=== PATIENT | female | born 1965 | race Caucasian/White ===

== ENCOUNTER → 2017-11-20 09:48 | Outpatient (CLI) | payer BC, SELFPAY ==
--- NOTE | 2017-11-20 10:00 | MM_ITS ---
MM Dig screening mamm BI w/CAD CAD Screening INDICATION: Screening for breast cancer ORDERING PHYSICIAN: Carli Maldonado PATIENT AGE: 51 years COMPARISON: 5 06/24 and 09/29/2014 TECHNIQUE: Standard CC and MLO images were obtained. R2 CAD reviewed. FINDINGS: Dense fibroglandular tissue which decreases the sensitivity of mammography. Asymmetric density is present in the medial, superior, and central aspect of the right breast for which spot compression views and ultrasound are recommended. Calcifications are present in the superior left breast. Magnification views recommended. There is a 14 mm opacity noted in the upper aspect of the left breast. . Asymmetric density also noted in the lateral and central aspect of the left breast. Spot compression view views and ultrasound recommended IMPRESSION: Bilateral asymmetric nodular densities along with calcifications in the upper aspect of the left breast. Problem-solving views and ultrasound suggested BI-RADS Category: 0 Need Additional Imaging Evaluation RECOMMENDED FOLLOW-UP: IMM - IMMEDIATE FOLLOW-UP RECOMMENDED Recommend bilateral spot compression views and bilateral breast ultrasound (A letter has been sent to the patient regarding results of the study.)
== END ==
PROVIDERS: PCP Family Medicine; Visit Provider Registered Nurse
DX: Z12.31 Encounter for screening mammogram for malignant neoplasm of breast (principal)
CPT/HCPCS: 77067

== ENCOUNTER → 2017-12-07 14:57 | Outpatient (CLI) | payer BC, SELFPAY ==
--- NOTE | 2017-12-07 15:04 | MM_ITS ---
MM Dig mamm BI DX w/CAD, US breast LT complete US breast RT complete INDICATION: Follow-up abnormal mammogram ORDERING PHYSICIAN: Carli Maldonado PATIENT AGE: 51 years COMPARISON: 11/20/2017, 11/17/2016 TECHNIQUE: Bilateral problem-solving views performed along with bilateral breast ultrasound FINDINGS: There is dense fibroglandular tissue decreasing the sensitivity of mammography. Right breast: Asymmetric density in the medial and upper aspect of the right breast does appear to compress out. There is a approximately 1 cm opacity superior aspect of the right breast posteriorly with some faint calcification which do appear to mica layer as milk of calcium on the MLO view. There is a complex cyst in this region on ultrasound. Right breast ultrasound: 8 x 7 mm complex cyst at 12:00. 3 mm hypoechoic lesion probably a cyst at 6:00 and 10:00 with a 6 mm cyst at 10:00 also. Small nodes in the axilla. Left breast: Asymmetric density in the outer aspect of the left breast appear to compress out likely related to fibroglandular tissue. Asymmetric density in the medial and central aspect of the left breast also appear to compress out. Faint calcifications are present in the outer aspect of the left breast probably benign. Left breast ultrasound: 9 x 7 mm septated cyst at 1:00. 7 x 7 mm cyst at 2:00. 6 x 4 mm cyst at 3:00. There is some ductal dilatation. Complex cyst at 9:00 at 6 mm. 5 mm cyst at 11:00. No suspicious solid lesions evident. IMPRESSION: Probably benign findings. No convincing evidence of malignancy Asymmetric density superior right breast containing some calcification probably present previously better seen on today's images due to technique. Probably benign calcifications left breast. Complex cyst right breast BI-RADS Category: 3 Benign Finding Short Term Follow-up RECOMMENDED FOLLOW-UP: 6M - 6 MONTH FOLLOW-UP Suggest bilateral 6 month mammographic and sonographic follow-up (A letter has been sent to the patient regarding results of the study.)
== END ==
PROVIDERS: PCP Family Medicine; Visit Provider Registered Nurse
DX: R92.8 Other abnormal and inconclusive findings on diagnostic imaging of breast (principal)
CPT/HCPCS: 77066

== ENCOUNTER → 2017-12-12 13:49 | Outpatient (CLI) | payer BC, SELFPAY ==
--- NOTE | 2017-12-12 13:54 | US_ITS ---
MM Dig mamm BI DX w/CAD, US breast LT complete US breast RT complete INDICATION: Follow-up abnormal mammogram ORDERING PHYSICIAN: Carli Maldonado PATIENT AGE: 51 years COMPARISON: 11/20/2017, 11/17/2016 TECHNIQUE: Bilateral problem-solving views performed along with bilateral breast ultrasound FINDINGS: There is dense fibroglandular tissue decreasing the sensitivity of mammography. Right breast: Asymmetric density in the medial and upper aspect of the right breast does appear to compress out. There is a approximately 1 cm opacity superior aspect of the right breast posteriorly with some faint calcification which do appear to hand mica plate layer as milk of calcium on the MLO view. There is a complex cyst in this region on ultrasound. Right breast ultrasound: 8 x 7 mm complex cyst at 12:00. 3 mm hypoechoic lesion probably a cyst at 6:00 and 10:00 with a 6 mm cyst at 10:00 also. Small nodes in the axilla. Left breast: Asymmetric density in the outer aspect of the left breast appear to compress out likely related to fibroglandular tissue. Asymmetric density in the medial and central aspect of the left breast also appear to compress out. Faint calcifications are present in the outer aspect of the left breast probably benign. Left breast ultrasound: 9 x 7 mm septated cyst at 1:00. 7 x 7 mm cyst at 2:00. 6 x 4 mm cyst at 3:00. There is some ductal dilatation. Complex cyst at 9:00 at 6 mm. 5 mm cyst at 11:00. No suspicious solid lesions evident. IMPRESSION: Probably benign findings. No convincing evidence of malignancy Asymmetric density superior right breast containing some calcification probably present previously better seen on today's images due to technique. Probably benign calcifications left breast. Complex cyst right breast BI-RADS Category: 3 Benign Finding Short Term Follow-up RECOMMENDED FOLLOW-UP: 6M - 6 MONTH FOLLOW-UP Suggest bilateral 6 month mammographic and sonographic follow-up (A letter has been sent to the patient regarding results of the study.)
== END ==
PROVIDERS: PCP Family Medicine; Visit Provider Registered Nurse
DX: N64.89 Other specified disorders of breast (principal); R92.8 Other abnormal and inconclusive findings on diagnostic imaging of breast
CPT/HCPCS: 76641

== ENCOUNTER → 2018-12-12 14:08 | Outpatient (CLI) | payer BC, SELFPAY ==
--- NOTE | 2018-12-12 14:21 | MM_ITS ---
MM Dig mamm BI DX w/CAD, US breast RT complete, US breast LT complete INDICATION: Follow-up category 3 mammogram ORDERING PHYSICIAN: Carli Maldonado PATIENT AGE: 52 years COMPARISON: 11/20/2017, 12/07/2017, 11/17/2016 TECHNIQUE: Standard images performed along spot compression views and bilateral breast ultrasound with axilla FINDINGS: There is heterogeneously dense fibroglandular tissue which decreases the sensitivity of mammography. A small group of calcifications noted in the medial aspect of the right breast . Asymmetric density is noted in the central one third of the right breast on the MLO view superiorly and is felt to represent asymmetric fibroglandular tissue. There are some faint calcifications in this area as well probably benign. Scattered asymmetric densities noted in the left breast as before. Faint grouping of calcifications noted in the upper outer aspect of the left breast probably benign.. These have been present dating back to 09/29/2014 with may be slightly more prominent. 6 Month follow-up with mag views suggested. Small Asymmetric density in the medial aspect of the left breast not significant changed. No malignant appearing microcalcifications or masses evident. Right breast ultrasound: There is heterogeneously echogenic dense fibroglandular tissue noted with scattered areas of complex cyst. 12:00 there is a 6 mm complex cyst measuring 6 mm not significant change. At 6:00 there is a 4 mm cyst with an internal septation. Slightly larger but has a benign appearance. 5 mm cyst at 10:00. Not significant change. Small nodes in the right axilla. Left breast ultrasound: There is a 10 x 7 mm cyst at 2:00 not significant change. There are some mildly dilated ducts at 3:00 region. 7 mm cyst at 5:00. 6 mm complex cyst at 9:00 unchanged. 5 mm cyst at 11:00 unchanged. Small nodes in the axilla. IMPRESSION: No convincing evidence of malignancy. Overall no significant change in the heterogeneously dense fibroglandular tissue with scattered areas of asymmetry felt to be related to asymmetric breast tissue. There are bilateral areas of calcification as described above. These appear slightly more prominent but could be related to the technique and progression of underlying fibroglandular tissue. Suggest 6 month follow-up with mag views. BI-RADS Category: 3 Probably Benign Finding Short Term Follow-up RECOMMENDED FOLLOW-UP: 6M - 6 MONTH FOLLOW-UP (A letter has been sent to the patient regarding results of the study.)
--- NOTE | 2018-12-12 14:33 | US_ITS ---
US transvaginal HISTORY: ITS.REASON: ABN BLEEDING ORDERING PHYSICIAN: Carli Maldonado PATIENT AGE: 52 years Comparison: None FINDINGS: The uterus is 6.5 x 2.8 x 3.4 cm with a combined endometrial thickness of 5 mm. There are small nabothian cysts noted. The left ovary is 2 x 2 cm. The right ovary is 3.7 x 3.9 cm and contains a couple of cysts the largest at 2.4 cm there is bilateral ovarian blood flow. No cul-de-sac fluid evident. IMPRESSION: 1. Small right ovarian cysts 2. Otherwise negative pelvic ultrasound
== END ==
PROVIDERS: PCP Physician Assistant; Visit Provider Registered Nurse
DX: N93.9 Abnormal uterine and vaginal bleeding, unspecified (principal); R92.8 Other abnormal and inconclusive findings on diagnostic imaging of breast
CPT/HCPCS: 76641; 76830; 77066

== ENCOUNTER → 2019-12-05 16:12 | Outpatient (CLI) | payer BC, SELFPAY | PROVIDERS: Visit Provider Family Medicine | DX: R31.29 Other microscopic hematuria (principal) | CPT/HCPCS: 87086 ==

== ENCOUNTER → 2019-12-10 09:58 | Outpatient (CLI) | payer BC, SELFPAY ==
--- NOTE | 2019-12-10 10:07 | CT_ITS ---
PROCEDURE: CT ABDOMEN PELVIS WO CON CLINICAL INDICATION: PELVIC PAIN,RT FLANK PAIN,HEMATURIA, right flank pain, right lower quadrant pain and hematuria COMPARISON: No exams were available for comparison TECHNIQUE: Axial images obtained with sagittal and coronal reformats. All CT scans at the facility use one or more dose reduction, viz: automated exposure control, ma/kV adjustment per patient size (including targeted exams where dose is matched to indication, i.e. head), or iterative reconstruction technique. FINDINGS: LOWER THORAX: No acute finding ABDOMEN & PELVIS: The liver, spleen, adrenal glands, and pancreas have an unremarkable appearance. There has been a prior cholecystectomy. There is mild right hydronephrosis and hydroureter secondary to a 5 mm stone at the right ureterovesical junction. There is some mild edema of the right kidney which could be due to underlying infection. Nonobstructing stone is present in the mid polar region of the right kidney at 2 mm. On the left, there is a large rounded stone in the lower pole at 2.5 cm. This could even represent milk of calcium within a calyceal diverticulum. No hydronephrosis on the left. No evidence of appendicitis, intestinal obstruction, free air, or diverticulitis. There is minimal amount of fluid in the pelvis. No pelvic mass evident. No acute bony anomalies. IMPRESSION: 1. 5 mm right ureterovesical junction stone with mild right hydronephrosis and hydroureter. There is some edema of the right kidney which may be due to underlying urinary tract infection with a nonobstructing right renal calculus in the midpole. 2. 2.5 cm rounded area of calcification along the lower pole of the left kidney which may represent a large stone or milk of calcium within a calyceal diverticulum Dictated by: Johnson Blakely MD 12/10/2019 11:31 Electronically signed by Johnson Blakely MD in [place] 12/10/2019 11:31
== END ==
PROVIDERS: PCP Family Medicine; Visit Provider Family Medicine
DX: R10.2 Pelvic and perineal pain (principal); R10.9 Unspecified abdominal pain; R31.29 Other microscopic hematuria
CPT/HCPCS: 74176

== ENCOUNTER → 2019-12-15 14:30 | Outpatient (CLI) | payer BC, SELFPAY ==
--- NOTE | 2019-12-15 14:33 | XR_ITS ---
PROCEDURE: XR KUB CLINICAL INDICATION: kidney stone Right flank pain COMPARISON: CT ABDOMEN PELVIS WO CON from 12/10/2019 FINDINGS: There is a 5 mm stone at the right ureterovesical junction. A 2.9 cm stone overlies the lower pole of the left kidney. In addition, there is a 3 mm stone in the mid polar region of the right kidney IMPRESSION: Bilateral nephrolithiasis with right ureterovesical junction stone Dictated by: Johnson Blakely MD 12/15/2019 15:25 Electronically signed by Johnson Blakely MD in [place] 12/15/2019 15:25
== END ==
PROVIDERS: PCP Family Medicine; Visit Provider Urology
DX: N20.0 Calculus of kidney (principal)
CPT/HCPCS: 74018

== ENCOUNTER → 2019-12-22 13:49 | Outpatient (CLI) | payer BC, SELFPAY ==
--- NOTE | 2019-12-22 13:54 | XR_ITS ---
PROCEDURE: XR KUB CLINICAL INDICATION: kidney stone Right flank COMPARISON: CT ABDOMEN PELVIS WO CON from 12/10/2019 FINDINGS: Calcific density measuring 5 mm is present in the right lower pelvic region consistent with a stone at the ureterovesical junction similar to 12/10/2019. A large left renal stone at 2.9 cm noted along the lower pole of the left kidney. IMPRESSION: No change right ureterovesical junction stone and large left renal stone Dictated by: Johnson Blakely MD 12/22/2019 14:35 Electronically signed by Johnson Blakely MD in [place] 12/22/2019 14:35
== END ==
PROVIDERS: PCP Family Medicine; Visit Provider Urology
DX: N20.0 Calculus of kidney (principal)
CPT/HCPCS: 74018

== ENCOUNTER → 2020-01-19 13:01 | Outpatient (CLI) | payer BC, SELFPAY ==
--- NOTE | 2020-01-19 13:05 | XR_ITS ---
PROCEDURE: XR KUB CLINICAL INDICATION: R URETHERAL STONE AND L RENAL STONE COMPARISON: CT ABDOMEN PELVIS WO CON from 12/10/2019 XR KUB from 12/22/2019 FINDINGS: No change in the large stone overlying the lower pole of the left kidney at 3 cm. There are multiple pelvic calcifications. The small linear calcific density in the right pelvic region which may represent a distal ureteral stone is unchanged. This measures approximately 9 mm in length and up to 2 mm in thickness. In addition there is a 5 mm stone at the ureterovesical junction. Consider CT for confirmation of 2 different ureteral stones. IMPRESSION: Left nephrolithiasis Right ureteral lithiasis with possible 2 stones in the distal ureter. Consider CT for confirmation Dictated by: Johnson Blakely MD 01/19/2020 14:52 Electronically signed by Johnson Blakely MD in [place] 01/19/2020 14:52
== END ==
PROVIDERS: PCP Family Medicine; Visit Provider Urology
DX: N20.0 Calculus of kidney (principal)
CPT/HCPCS: 74018

== ENCOUNTER 2020-05-28 09:49 | Emergency (ER) | payer BC, SELFPAY ==
[2020-05-28 10:40] VITALS: BP 133/81; PULSE 101; RESP 18; TEMP 36.9; O2SAT 98; BMI 27.7
--- NOTE | 2020-05-28 10:51 | HMH.EDUTC ---
[place] Disposition Clinical Impression: Exposure to COVID-19 virus Disposition: Home, Self-Care Condition on Discharge: Good Instructions: Preventing the Spread of Coronavirus Discharge Instructions Additional Instructions: Drink plenty of fluids. Take tylenol for pain or fever. Return if you begin to have difficulty breathing. Follow up with your regular doctor. GO TO THE ER FOR ANY WORSENING SYMPTOMS Referrals: Med Canales MD [Primary Care Provider] - Time of Disposition: 10:54 Medical Decision Making - Medical Records Medical records reviewed: No: I reviewed the patient's medical records. - Giancarlo Inquiry Pt receiving controlled substance: No Vital Signs: 05/28/20 10:40 05/28/20 11:07 Temperature 98.5 F 98.5 F Temperature Source Oral Pulse Rate 101 H Pulse Rate [Right Brachial] 101 H Respiratory Rate 18 18 Blood Pressure 133/81 Blood Pressure [Right Arm] 133/81 Blood Pressure Mean [Right Arm] 98 Blood Pressure Source [Right Arm] Automatic Cuff Blood Pressure Position [Right Arm] Sitting 02 Sat by Pulse Oximetry 98 Oxygen Delivery Method Room Air Orders (Tests/Meds): ORDERS Category Date Time Status Covid-19 Nasal PCR ([facility]) Routine Lab 05/28/20 10:47 Ordered [place] HPI - General Stated complaint: Covid exposure Time Seen by Provider: 05/28/20 10:51 - History of Present Illness Provider Complaint: She got exposed to covid at her work 3 days ago. She denies any symptoms. - Related Data Previous Rx's Medication Instructions Recorded albuterol sulfate 90 mcg/actuation 1 inh INHALATION Q4-6H PRN #1 each 06/23/19 breath activated powder inhaler azithromycin 250 mg tablet See Rx Instructions PO .COMPLEX #6 06/23/19 tab mexbtjqjzfxxmcr-bzurkwzhujxwwyl-RE 10 ml PO Q4-6H PRN #220 ml 06/23/19 2 mg-30 mg-10 mg/5 mL oral syrup Allergies Allergy/AdvReac Type Severity Reaction Status Date / Time No Known Allergies Allergy Verified 01/19/20 14:06 [facility] History - Hepatitis A Screen Attestation statement:: This patient has been screened for Hepatitis A risk factors. I have reviewed the patient's past medical history: Yes Other Surgeries: Yes: No Previous Surgery, Cholecystectomy Amputation: No Fractures: No - Social History Smoking Status: Current every day smoker Tobacco Type: cigarettes Alcohol Intake: never Substance Use Type: denies use Occupational Status: employed Family Hx:: Asthma, Hyperlipidemia, Diabetes, Hypertension, Coronary Artery Disease, Stroke ROS Obtained: Yes All systems reviewed & no additional complaints - Constitutional Constitutional: Reports system reviewed and no additional complaints, except as docu - Eyes Eyes: Reports system reviewed and no additional complaints, except as docu - ENT Ears, Nose, Mouth, and Throat: Reports system reviewed and no additional complaints, except as docu - Cardiovascular Cardiovascular: Reports system reviewed and no additional complaints, except as docu - Respiratory Respiratory: Yes system reviewed and no additional complaints, except as docu - Gastrointestinal Gastrointestingal: Reports: system reviewed and no additional complaints, except as docu Physical Exam - General General appearance: alert, in no apparent distress - Head Head exam: atraumatic, normocephalic, normal inspection - Eye Eye exam: Present: normal appearance, PERRL, EOMI - ENT ENT exam: Present: normal exam, normal oropharynx, mucous membranes moist, TM's normal bilaterally, normal external ear exam - Neck Neck exam: Present: normal inspection, full ROM, trachea midline. Absent: meningismus, lymphadenopathy - Chest Chest inspection: Present: normal inspection, symmetric chest wall rise. Absent: tenderness - Respiratory Respiratory exam: Present: normal lung sounds bilaterally. Absent: respiratory distress - Cardiovascular Cardiovascular exam: Present: regular rate, normal rhythm
[2020-05-28 11:07] VITALS: BP 133/81; PULSE 101; RESP 18; TEMP 36.9; O2SAT 98
== END 2020-05-28 11:09 | disposition home or self-care (01) ==
PROVIDERS: Emergency Provider Nurse Practitioner Family; PCP Family Medicine
DX: Z20.828 Contact with and (suspected) exposure to other viral communicable diseases (principal); F17.210 Nicotine dependence, cigarettes, uncomplicated
CPT/HCPCS: 99201; U0003

== ENCOUNTER 2022-02-23 16:31 | Emergency (ER) | payer OTHER, SELFPAY ==
[2022-02-23 16:56] VITALS: BP 156/87; PULSE 98; RESP 18; TEMP 37.4; O2SAT 99; BMI 27.1
--- NOTE | 2022-02-23 17:20 | HMH.EDUTC ---
[facility] [place] Clinical Impression: COVID-19 Disposition: Home, Self-Care Condition on Discharge: Good Instructions: DI for COVID-19 (Suspected or Confirmed ), Preventing the Spread of Coronavirus Discharge Instructions Additional Instructions: Drink plenty of fluids. Take tylenol or ibuprofen for pain or fever. Take the medications as directed. Follow up with your regular doctor. GO TO THE ER FOR ANY WORSENING SYMPTOMS Prescriptions: Ondansetron [Zofran 4mg ODT] 4 mg PO Q8HP PRN #20 tab PRN Reason: Nausea Transmission Status: Received by [facility] Nirmatrelvir/Ritonavir [Paxlovid 2X150 mg-100 mg (Eua)] 1 packet PO DIRECTED 5 Days #1 packet Transmission Status: Received by [facility] Referrals: Med Canales MD [Primary Care Provider] - Time of Disposition: 17:42 Medical Decision Making - Medical Records Medical records reviewed: No: I reviewed the patient's medical records. - Giancarlo Inquiry Pt receiving controlled substance: No Vital Signs: 02/23/22 16:56 02/23/22 17:49 Temperature 99.4 F 99.4 F Temperature Source Oral Pulse Rate 98 H Pulse Rate [Left] 98 H Respiratory Rate 18 18 Blood Pressure 156/87 H Blood Pressure [Right Arm] 156/87 H Blood Pressure Mean [Right Arm] 110 02 Sat by Pulse Oximetry 99 [facility] [place] - General Stated complaint: home covie+.CARRANZA,congestion Time Seen by Provider: 02/23/22 17:20 Mode of Arrival: Ambulatory Source of Information: Patient Limitations: No Limitations Description of Symptoms (Recalled from Triage Doc. by RN): patient comes in for covid test. patient had home test that was positive today. HEENT Symptoms (Recalled from RN notes): Yes Resp Symptoms (Recalled from RN notes): Yes Skin Symptoms (Recalled from RN notes): No MS Symptoms (Recalled from RN notes): No Functional Status (Recalled from RN notes): n/a - History of Present Illness Provider Complaint: She states that she started feeling bad 2 days ago. She has had low grade fever, chills, body aches and a nonproductive cough. - Related Data Previous Rx's Medication Instructions Recorded albuterol sulfate 90 mcg/actuation 1 inh INHALATION Q4-6H PRN #1 each 06/23/19 breath activated powder inhaler azithromycin 250 mg tablet See Rx Instructions PO .COMPLEX #6 06/23/19 tab aulzeqrjkjhacnr-hompvlmpaaamvzh-RZ 10 ml PO Q4-6H PRN #220 ml 06/23/19 2 mg-30 mg-10 mg/5 mL oral syrup Nirmatrelvir/Ritonavir [Paxlovid 1 packet PO DIRECTED 5 Days #1 02/23/22 2X150 mg-100 mg (Eua)] packet Ondansetron [Zofran 4mg ODT] 4 mg PO Q8HP PRN #20 tab 02/23/22 Allergies Allergy/AdvReac Type Severity Reaction Status Date / Time No Known Allergies Allergy Verified 02/23/22 16:58 - Worker's Comp Is this a Worker's Comp case?: No [facility] History - Hepatitis A Screen Attestation statement:: This patient has been screened for Hepatitis A risk factors. I have reviewed the patient's past medical history: Yes Other Surgeries: Yes: No Previous Surgery, Cholecystectomy Amputation: No Fractures: No - Social History Smoking Status: Current every day smoker Tobacco Type: cigarettes Alcohol Intake: never Substance Use Type: denies use Occupational Status: other Family Hx:: Asthma, Hyperlipidemia, Diabetes, Hypertension, Coronary Artery Disease, Stroke ROS Obtained: Yes All systems reviewed & no additional complaints - Constitutional Constitutional: Reports as per HPI - Eyes Eyes: Denies eye discharge - ENT Ears, Nose, Mouth, and Throat: Reports as per HPI - Cardiovascular Cardiovascular: Denies chest pain - Respiratory Respiratory: Denies chest congestion, Reports cough Physical Exam - General General appearance: alert, in no apparent distress - Head Head exam: atraumatic, normocephalic, normal inspection - Eye Eye exam: Present: normal appearance, PERRL, EOMI - ENT ENT exam: Present: normal exam, nor
[2022-02-23 17:49] VITALS: BP 156/87; PULSE 98; RESP 18; TEMP 37.4
== END 2022-02-23 17:52 | disposition home or self-care (01) ==
PROVIDERS: Emergency Provider Nurse Practitioner Family; PCP Family Medicine
DX: U07.1 COVID-19 (principal); R51.9 Headache, unspecified; M79.10 Myalgia, unspecified site; F17.210 Nicotine dependence, cigarettes, uncomplicated; Z79.51 Long term (current) use of inhaled steroids; Z82.49 Family history of ischemic heart disease and other diseases of the circulatory system; Z82.5 Family history of asthma and other chronic lower respiratory diseases; Z83.438 Family history of other disorder of lipoprotein metabolism and other lipidemia; Z83.3 Family history of diabetes mellitus
CPT/HCPCS: 99213; G0463

== ENCOUNTER 2023-03-06 13:55 | Emergency (ER) | payer BC, SELFPAY ==
[2023-03-06 14:00] VITALS: BP 148/94; PULSE 71; RESP 20; TEMP 36.5; O2SAT 98; BMI 30.5
[2023-03-06 14:28] VITALS: BP 148/94; PULSE 71; RESP 20; TEMP 36.5; O2SAT 98
--- NOTE | 2023-03-06 19:54 | EXP.UTC ---
Discharge Plan Disposition Patient Disposition: Home, Self-Care Condition: Good Prescriptions Prescriptions: No Action azithromycin 250 mg tablet See Rx Instructions PO .COMPLEX Qty: 6 0RF Rx Instructions: take 500 mg today (day 1), then 250 mg for 4 days (days 2-5) PO muxbxsfyvslehgi-cfasmglkh-KE [Bromfed DM] 2-30-10 mg/5 mL syrup 10 ml PO Q4-6H PRN (Reason: sinus symptoms) Qty: 220 0RF albuterol sulfate 90 mcg/actuation aerosol powdr breath activated 1 inh INHALATION Q4-6H PRN (Reason: shortness of breath or wheezing) Qty: 1 0RF ondansetron 4 MG tablet,disintegrating 4 mg PO Q8HP PRN (Reason: Nausea) Qty: 20 0RF nirmatrelvir-ritonavir 1 EACH tablet 1 packet PO DIRECTED 5 Days Qty: 1 0RF Referrals Follow up/Referrals: Provider,Referral, MD [Primary Care Provider] - See instructions Activity Restrictions/Add. Instructions Additional Instructions/Restrictions: Take medication as prescribed FOllow up with your Dentist as scheduled Clinical Impressions Clinical Impression: Abscess, dental Discharge ED Provider: Radha Araujo [facility] [place] HPI General Stated complaint: dental pain Time Seen by Provider: 03/06/23 14:00 History of Present Illness Provider Complaint: Patient state that she broke a couple teeth on her left lower bottom and has appointment with Dentist next week but woke up this morning with swelling in her left jaw area thinks she may have an abscess Related Data Previous Rx's Medication Instructions Recorded albuterol sulfate 90 mcg/actuation 1 inh inhalation Q4-6H PRN 06/23/19 breath activated powder inhaler shortness of breath or wheezing #1 ea azithromycin 250 mg tablet See Rx Instructions PO .COMPLEX #6 06/23/19 tabs hhgpzyxdolskorx-vhzkzdnfqjvizcw-YZ 10 ml PO Q4-6H PRN sinus symptoms 06/23/19 2 mg-30 mg-10 mg/5 mL oral syrup #220 mL (Bromfed DM) nirmatrelvir 300 mg (150 mg 1 packet PO DIRECTED 5 days #1 02/23/22 x2)-ritonavir 100 mg tablet,dose packet pack ondansetron 4 mg disintegrating 4 mg PO Q8HP PRN Nausea #20 tabs 02/23/22 tablet Allergies Allergy/AdvReac Type Severity Reaction Status Date / Time No Known Allergies Allergy Verified 02/23/22 16:58 [facility] Disclaimer: The information contained in this section may have been updated after the patient was seen, as this information can be updated by other users. Social History Smoking Status: Current every day smoker tobacco type: cigarettes alcohol intake: never substance use type: denies use current occupational status: other Travel in the last 8 weeks: None ROS Obtained: Yes All systems reviewed & no additional complaints except as documented and Yes Systems reviewed as appropriate & no additional complaints except as documented Constitutional Constitutional: Reports system reviewed and no additional complaints, except as documented and Reports as per HPI ENT Ears, Nose, Mouth, and Throat: Reports system reviewed and no additional complaints, except as documented, Reports as per HPI and Reports dental pain Cardiovascular Cardiovascular: Reports system reviewed and no additional complaints, except as documented and Reports as per HPI Respiratory Respiratory: Reports system reviewed and no additional complaints, except as documented and Reports as per HPI Gastrointestinal Gastrointestingal: Reports system reviewed and no additional complaints, except as documented and as per HPI Physical Exam General General appearance: alert and in no apparent distress Expanded ENT Exam Teeth exam: Present fractured tooth #, gingival swelling and other (swelling in left jaw area with mulitple broke bottom teeth) Respiratory Respiratory exam: Present normal lung sounds bilaterally; Absent respiratory distress or wheezes Cardiovascular Cardiovascular exam: Present regular rate, normal rhythm and normal heart sounds Neurological Exam Neurological exam: Present alert, oriented X3 and n
== END 2023-03-06 14:30 | disposition home or self-care (01) ==
PROVIDERS: Emergency Provider Nurse Practitioner
DX: K04.7 Periapical abscess without sinus (principal); R68.84 Jaw pain; F17.210 Nicotine dependence, cigarettes, uncomplicated
CPT/HCPCS: 99212; 99213; G0463

== ENCOUNTER 2025-02-15 16:42 | Inpatient (IN) | payer BC, SELFPAY ==
[2025-02-15] VITALS (17 sets, daily range): BP systolic 128–169; BP diastolic 64–115; PULSE 82–100; RESP 18–26; TEMP 36.4–36.9; O2SAT 84–99; BMI 26.4; BMI 27.1
--- OUTSIDE RECORDS SUMMARY | 2025-02-15 16:54 | XMS_ITS | Clinical Summary ---
Author Organization [facility] Address 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 Name Role Phone Unavailable Primary Care Provider Unavailabl e Social History Tobacco Use Types Packs/Day Years Used Date Smoking Tobacco: Never Assessed Comments No Sex and Gender Information Value Date Recorded Sex Assigned at Not on file Legal Sex Female 12:35 PM EST Gender Identity Not on file Sexual Orientation Not on file Obstetrics History Para Term AB IAB SAB Ectopic Multiple Livin g Live Births 0 Last Filed Vital Signs Vital Sign Reading Time Taken Comments Blood Pressure - - Pulse - - Temperature - - Respiratory Rate - - Oxygen Saturation - - Inhaled Oxygen Concentration - - Weight 65.8 kg (145 lb) 08/21/2024 1:31 PM EST Height 152.4 cm (5') 08/21/2024 1:31 PM EST Body Mass Index 28.32 08/21/2024 1:31 PM EST Plan of Treatment Health Maintenance Due Date Last Done Comments Annual Wellness Exam 12/19/1970 DTaP/TDaP/Td (1 - Tdap) 12/19/1986 Hepatitis B Vaccine (1 of 3 - 19+ 3-dose series) 12/19/1986 HPV/Pap Cotest 12/19/1997 Cologuard 12/19/2012 Colon Cancer Screening 12/19/2012 Colonoscopy 12/19/2012 FIT 12/19/2012 Sigmoidoscopy 12/19/2012 Virtual Colonography 12/19/2012 Pneumococcal Vaccine 50+ (1 of 1 - PCV) 12/19/2017 Cervical Cancer Screening 11/25/2021 Pap Smear 11/25/2021 11/25/2018, 10/2017, 11/08/2016 COVID-19 Vaccine ( season) 2024 07/26/2022, 11/08/2021, 05/26/2021, Additional history exists Influenza Vaccine (#1) 2025 2, 04/15/2020, 05/21/2019, Additional history exists Breast Cancer Screening 08/21/2026 08/21/19, 08/11/2024, 08/17/2023 Zoster Completed 01/14/2024, 11/13/2023 Meningococcal B Vaccine Aged Out No l onger eligible based on patient's age to complete this topic Procedures Procedure Name Priority Date/Time Associated Diagnosis Comments MM MAMMO DIGITAL ROBERTO DIAGN LEFT Routine 08/21/2024 1:54 PM EST Abnormal mammogram from Last 3 Months or Most Recently Relevant to Health Maintenance Results * MM MAMMO DIGITAL ROBERTO DIAGN LEFT (08/21/2024 1:54 PM EST) Anatomical Region Laterality Modality Breast Left Mammography 08/21/2024 1:54 PM EST Impressions 08/21/2024 4:23 PM EST Negative ([id number]) ASSESSMENT TEXT: No mammographic evidence of malignancy. RECOMMENDATION: Routine Screening Mammogram in 1 Year Bilateral COMMENTS: Return for evaluation with any concerning changes. The findings and recommendations were discussed with the patient following the examination. Narrative 08/21/2024 4:23 PM EST EXAM: MM MAMMO DIGITAL ROBERTO DIAGN LEFT EXAM DATE: 08/21/2024 INDICATION: R92.8-Other abnormal and inconclusive findings on diagnostic imaging of [id number] COMPARISON STUDIES: No Qualifying Comparisons Found TISSUE DENSITY: The breasts are heterogeneously dense, which may obscure small masses. FINDINGS: The questioned area of distortion effaces with supplemental views compatible with summation artifact of normal breast tissue. No suspicious mammographic findings. Procedure Note Indra Zamudio MD - 08/21/2024 EXAM: MM MAMMO DIGITAL ROBERTO DIAGN LEFT EXAM DATE: 08/21/2024 INDICATION: R92.8-Other abnormal and inconclusive findings on diagnosticimaging of [id number] COMPARISON STUDIES: No Qualifying Comparisons Found TISSUE DENSITY: The breasts are heterogeneously dense, which may obscuresmall masses. FINDINGS: The questioned area of distortion effaces with supplementalviews compatible with summation artifact of normal breast tissue. Nosuspicious mammographic findings. IMPRESSION: Negative ([id number]) ASSESSMENT TEXT: No mammographic evidence of malignancy. RECOMMENDATION: Routine Screening Mammogram in 1 Year Bilateral COMMENTS: Return for evaluation with any concerning changes. The findingsand recommendations were discussed with the patient following theexamination. Toyin Holguin APRN IM MAMMOGRAPHY ORDERABLES Fin al Result from Last 3 Months or Most Recently Relevant to Health Maintenance Insurance O
--- NOTE | 2025-02-15 17:03 | ECG_ITS ---
APPROVED REPORT Exam: Resting ECG HR:86 bpm ECG Measurements Heart Rate 86 AXES WV 131 P 70 QRSd 74 QRS 46 QT 364 T 73 QTc 407 Conclusion SINUS RHYTHM LOW QRS VOLTAGE [QRS DEFLECTION < 0.5/1.0 mV IN LIMB/CHEST LEADS] MINIMAL ST DEPRESSION [0.025+ mV ST DEPRESSION] ABNORMAL ECG UNCONFIRMED REPORT Electronically signed by : TRICIA CAMP, 02/16/2025 23:46:07
--- NOTE | 2025-02-15 17:04 | XR_ITS ---
PROCEDURE INFORMATION: Exam: XR Chest Exam date and time: 02/15/2025 5:20 PM Age: 59 years old Clinical indication: Shortness of breath TECHNIQUE: Imaging protocol: Radiologic exam of the chest. Views: 1 view. COMPARISON: DX XR KUB 01/19/2020 1:26 PM FINDINGS: Lungs: Unremarkable. No consolidation. Pleural spaces: Unremarkable. No pleural effusion. No pneumothorax. Heart/Mediastinum: Unremarkable. No cardiomegaly. Bones/joints: Unremarkable. IMPRESSION: No acute findings.
[2025-02-15 17:11] LABS: Hematocrit 47.6 % (37.0-47.0); Hemoglobin 16.1 g/dL (12.2-16.2); Immature Granulocytes % 0.2 %; Mean Corpuscular HGB Conc 33.8 g/dL (31.8-35.4); Mean Corpuscular Hemoglobin 30.5 pg (27.0-31.2); Mean Corpuscular Volume 90.2 fl (81-99); Nucleated Red Blood Cells % 0 %; Platelet Count 381 K/mm3 (142-424); Red Blood Count 5.28 M/mm3 (4.20-5.40); Red Cell Distribution Width-SD 40.9 fL; White Blood Count 14.2 K/mm3 (4.8-10.8)
[2025-02-15] MEDS: IPRATROPIUM/ALBUTEROL 3 ML NEB 9 ML IH (17:13)
[2025-02-15 17:16] LABS: Lactate Venous 1.3 mmol/L (0.4-2.0); VBG HCO3 24.2 mmol/L (23-30); VBG PCO2 47.8 mmol/L (35-51); VBG PH 7.32 mmol/L (7.31-7.41); VBG PO2 31.0 mmol/L (28-40)
[2025-02-15 17:18] LABS: Alanine Aminotransferase 43 U/L (12-78); Albumin Level 5.0 g/dl (3.5-5.0); Albumin/Globulin Ratio 1.7 (1.1-1.8); Alkaline Phosphatase 129 U/L (38-126); Anion Gap 10.3 mEq/L (5-15); Aspartate Amino Transferase 49 U/L (14-36); Bilirubin,Total 0.4 mg/dl (0.2-1.3); Blood Urea Nitrogen 10 mg/dl (7-17); Calcium 9.5 mg/dl (8.4-10.2); Carbon Dioxide 25 mmol/L (22.0-30.0); Chloride 106 mmol/L (98-107); Creatinine Clearance Estimated 75 mL/min (50-200); Creatinine,Serum 0.80 mg/dl (0.52-1.04); Estimated Glomerular Filt Rate 74 ml/min (>60); GFR (African American) 89 ML/MIN (>60); Globulin 3.0 g/dL (1.3-3.2); Glucose 122 mg/dl (74-100); Potassium 4.3 mmoL/L (3.5-5.1); Sodium 137 mmol/L (136-145); Total Protein,Serum 8.0 g/dl (6.3-8.2)
[2025-02-15] MEDS: ONDANSETRON 4MG/2ML VIAL 4 MG IV (17:20)
[2025-02-15] MEDS: METHYLPREDNISOLONE SOD SUCC 125MG VIAL 125 MG IV (17:20)
[2025-02-15] MEDS: 0.9 % SODIUM CHLORIDE 1000ML 1,000 ML 999 ML IV (17:21)
[2025-02-15] MEDS: MAGNESIUM SULFATE IN WATER 2 GM/50 ML PIGGYBACK IV (17:21)
[2025-02-15 17:23] LABS: D-Dimer 0.77 ug/mL (0.0-0.5)
--- NOTE | 2025-02-15 17:30 | CT_ITS ---
PROCEDURE INFORMATION: Exam: CTA Chest With Contrast Exam date and time: 02/15/2025 6:17 PM Age: 59 years old Clinical indication: Abnormal findings; Abnormal diagnostic tests; Elevated d-dimer; Other: Hypoxia; Additional info: Hypoxia, elevated d-dimer TECHNIQUE: Imaging protocol: Computed tomographic angiography of the chest with contrast. Exam focused on the arteries. 3D rendering (Not supervised by radiologist): MIP and/or 3D reconstructed images were created by the technologist. Radiation optimization: All CT scans at this facility use at least one of these dose optimization techniques: automated exposure control; mA and/or kV adjustment per patient size (includes targeted exams where dose is matched to clinical indication); or iterative reconstruction. Contrast material: ISOUVE 370; Contrast volume: 80 ml; Contrast route: INTRAVENOUS (IV); COMPARISON: CR XR CHEST PORTABLE 02/15/2025 5:20 PM FINDINGS: Pulmonary arteries: Normal. No pulmonary emboli. Aorta: Unremarkable. No aortic aneurysm. No aortic dissection. Lungs: Mild patchy multifocal ground-glass opacities are noted bilaterally involving the left upper lobe and both lower lobes most pronounced in the inferior aspect of the left upper lobe. Lungs are otherwise clear. Pleural spaces: Unremarkable. No pneumothorax. No pleural effusion. Heart: Unremarkable. No cardiomegaly. No pericardial effusion. Lymph nodes: Unremarkable. No enlarged lymph nodes. Bones/joints: Unremarkable. No acute fracture. Soft tissues: Unremarkable. IMPRESSION: 1. No evident PE. 2. Mild bilateral ground-glass opacity suggesting atypical infectious or inflammatory pneumonitis. Advise follow-up to ensure resolution.
[2025-02-15 17:38] LABS: Troponin I < 0.01 ng/ml (0.00-0.034)
--- NOTE | 2025-02-15 18:01 | HMH.ITSTN ---
This horseradish grinder went to get patient for her CT scan and was patient was in the middle of a breathing treatment. AMBER Neal is going to call radiology when patient is ready to come to scan once her breathing treatment is complete.
[2025-02-15] MEDS: SODIUM CHLORIDE 0.9% 10ML SYR (RAD ONLY) 10 ML IV (18:24)
[2025-02-15] MEDS: 0.9 % SODIUM CHLORIDE 50 ML VIAL IV (18:24)
[2025-02-15] MEDS: IOPAMIDOL-370 (76%);100ML BOTTLE 80 ML IV (18:24)
--- NOTE | 2025-02-15 18:58 | ED_ITS ---
Discharge Plan Disposition Patient Disposition: Admitted Condition: Fair Prescriptions Prescriptions: No Action azithromycin 250 mg tablet See Rx Instructions PO .COMPLEX Qty: 6 0RF Rx Instructions: take 500 mg today (day 1), then 250 mg for 4 days (days 2-5) PO kagultpmrouttnc-oajquyczn-NH [Bromfed DM] 2-30-10 mg/5 mL syrup 10 ml PO Q4-6H PRN (Reason: sinus symptoms) Qty: 220 0RF albuterol sulfate 90 mcg/actuation aerosol powdr breath activated 1 inh INHALATION Q4-6H PRN (Reason: shortness of breath or wheezing) Qty: 1 0RF ondansetron 4 MG tablet,disintegrating 4 mg PO Q8HP PRN (Reason: Nausea) Qty: 20 0RF nirmatrelvir-ritonavir 1 EACH tablet 1 packet PO DIRECTED 5 Days Qty: 1 0RF Referrals Follow up/Referrals: Eulalia Sparks APRN [Primary Care Provider, Medical] - See instructions Clinical Impressions Clinical Impression: Asthma exacerbation, Pneumonia Print Language Print Language: Polish Discharge ED Provider: Johana Cruz Adult HPI General Chief complaint: Shortness of Breath/Dyspnea Stated complaint: SOA Time Seen by Provider: 02/15/25 16:46 Mode of Arrival: Ambulatory Source of Information: Patient Description of Symptoms (Recalled from ER Triage Doc. by RN): patient presents to the Ed today with severe shortness of breath. initial oxygen saturation in triage was 80. she is able to stop and take deep breaths and recover to 90%. she states she has a history of asthma and recent bronchitis. she does endorse using an inhaler for her asthma but she ran out of her inhaler. History of Present Illness HPI narrative: Patient is an otherwise healthy 60-year-old female with a past medical history of asthma who presented to the emergency department with shortness of breath that started this morning. Patient states that she has asthma had been using her rescue inhaler at home but ran out on Sunday. Patient states that she has not had any cough runny nose or other upper respiratory symptoms. Patient has not had any chest pain. Patient has not had any abdominal pain nausea vomiting or diarrhea. Patient states that she has never had to be intubated or admitted for asthma in the past. Patient has not had any recent exposures to anyone being sick. Related Data Previous Rx's ?Medication ?Instructions ?Recorded albuterol sulfate 90 mcg/actuation 1 inh inhalation Q4 -6H PRN 06/23/19 breath activated powder inhaler shortness of breath or wheezing #1 ea azithromycin 250 mg tablet See Rx Instructions PO .COM PLEX #6 06/23/19 tabs uiypqzfkgvhdaov-dseucuggmqknrfx-OM 10 ml PO Q4-6H PRN sinus symptoms 06/23/19 2 mg-30 mg-10 mg/5 mL oral syrup #220 mL (Bromfed DM) nirmatrelvir 300 mg (150 mg 1 packet PO DIRECTED 5 days #1 02/23/22 x2)-ritonavir 100 mg tablet,dose packet pack ondansetron 4 mg disintegrating 4 mg PO Q8HP PRN Nause a #20 tabs 02/23/22 tablet Allergies Allergy/AdvReac Type Severity Reaction Status Date / Time No Known Allergies Allergy Verified 02/23/22 16:58 [facility] Disclaimer: The information contained in this section may have been updated after the patient was seen, as this information can be updated by other users. Social History Smoking Status: Never smoker alcohol intake: never substance use type: denies use current occupational status: other Travel in the last 8 weeks?: None Have you lived/traveled outside US in past 30 days?: No Contact w/someone who lives/traveled outside US past 30 days?: No Exposure to someone with infectious disease in past 14 days?: No Do you have a fever (greater than 100.4 F or 38 C)?: No Have you tested positive for COVID-19?: No Exposed to someone with COVID-19 in past 14 days?: No Do you have a sore throat?: No Do you have a cough?: No Do you have any weakness?: No Do you have any diarrhea?: No Are you experiencing any unusual bleeding?: No Do you have any muscle aches/pain?: No Do you have any abdominal pain?: No Are you experiencing loss of taste or smell?: No Other Medical History Have you received the Pneumonia Vaccine: No ROS Obtained: Yes All systems reviewed & no additional complaints except as documented and Yes Systems reviewed as appropriate & no additional complaints except as documented Physical Exam General General appearance: alert and in no apparent distress Head Head exam: atraumatic, normocephalic and normal inspection Eye Eye exam: Present normal appearance, PERRL and EOMI; Absent scleral icterus ENT ENT exam: Present normal exam and normal external ear exam Neck Neck exam: Present normal inspection and full ROM Chest Chest inspection: Present normal inspection and symmetric chest wall rise Respiratory Respiratory exam: Present normal lung sounds bilaterally, respiratory distress, wheezes and other (Wheezing in all lung pathak, tachypnea, respiratory distress) Cardiovascular Cardiovascular exam: Present regular rate, normal rhythm and normal heart sounds Abdominal Exam Abdominal exam: Present soft and distention; Absent tenderness, guarding or rebound Extremities Exam Extremities exam: Present normal inspection and full ROM Back Exam Back exam: Present normal inspection and full ROM Neurological Exam Neurological exam: Present alert and oriented X3 Psychiatric Psychiatric exam: Present normal affect and normal mood Skin Skin exam: Present warm and dry Medical Decision Making Medical Records Screening: Per USPSTF and CDC recommendations, given the prevalence of disease in our region, it is our hospital?s policy to screen for HIV and viral Hepatitis for all patients aged 18 and over and those with ongoing risk factors. Giancarlo Inquiry Pt receiving controlled substance: No Vital Signs: 02/15/25 16:44 02/15/25 16:50 02/15/25 16:58 Temperature 98.5 F Temperature Source Oral Pulse Rate 83 Pulse Rate [Right Radial] 85 Respiratory Rate 26 H Blood Pressure 169/92 H Blood Pressure [Right Arm] 157/67 H Blood Pressure Mean [Right Arm] 97 Blood Pressure Source [Right Arm] Automatic Cuff Blood Pressure Position [Right Arm] Sitting 02 Sat by Pulse Oximetry 84 L 89 L 98 Oxygen Delivery Method Room Air Room Air Nasal Cannula Oxygen Flow Rate (LPM) 2 02/15/25 17:01 02/15/25 17:10 02/15/25 17:21 Temperature Temperature Source Pulse Rate 87 89 82 Pulse Rate [Right Radial] Respiratory Rate Blood Pressure 140/67 150/80 H 160/115 H Blood Pressure [Right Arm] Blood Pressure Mean [Right Arm] Blood Pressure Source [Right Arm] Blood Pressure Position [Right Arm] 02 Sat by Pulse Oximetry 97 95 95 Oxygen Delivery Method Nasal Cannula Nasal Cannula Nasal Cannula Oxygen Flow Rate (LPM) 2 2 2 02/15/25 17:31 02/15/25 17:45 02/15/25 17:50 Temperature Temperature Source Pulse Rate 98 H 98 H 98 H Pulse Rate [Right Radial] Respiratory Rate Blood Pressure 129/64 138/78 139/88 Blood Pressure [Right Arm] Blood Pressure Mean [Right Arm] Blood Pressure Source [Right Arm] Blood Pressure Position [Right Arm] 02 Sat by Pulse Oximetry 99 99 98 Oxygen Delivery Method Nasal Cannula Nasal Cannula Nasal Cannula Oxygen Flow Rate (LPM) 2 2 2 02/15/25 18:07 02/15/25 18:30 02/15/25 18:40 Temperature Temperature Source Pulse Rate 98 H 99 H 100 H Pulse Rate [Right Radial] Respiratory Rate Blood Pressure 137/86 142/79 H 147/100 H Blood Pressure [Right Arm] Blood Pressure Mean [Right Arm] Blood Pressure Source [Right Arm] Blood Pressure Position [Right Arm] 02 Sat by Pulse Oximetry 98 97 95 Oxygen Delivery Method Nasal Cannula Nasal Cannula Nasal Cannula Oxygen Flow Rate (LPM) 2 2 2 02/15/25 19:00 Temperature Temperature Source Pulse Rate 98 H Pulse Rate [Right Radial] Respiratory Rate Blood Pressure Blood Pressure [Right Arm] Blood Pressure Mean [Right Arm] Blood Pressure Source [Right Arm] Blood Pressure Position [Right Arm] 02 Sat by Pulse Oximetry Oxygen Delivery Method Oxygen Flow Rate (LPM) Lab Data Lab results reviewed: Yes I reviewed the patient's lab results. Lab Results 02/15/25 16:54: WBC 14.2 H, RBC 5.28, Hgb 16.1, Hct 47.6 H, MCV 90.2, MCH 30.5, MCHC 33.8, RDW 12.2, Plt Count 381, MPV 9.7, Neut % (Auto) 85.8 H, Lymph % (Auto) 8.2 L, Bell % (Auto) 4.1, Eos % (Auto) 1.2, Baso % (Auto) 0.5, Neut # (Auto) 12.2 H, Lymph # (Auto) 1.2, Bell # (Auto) 0.6, Eos # (Auto) 0.2, Baso # (Auto) 0.1, D-Dimer 0.77 H, Sodium 137, Potassium 4.3, Chloride 106, Carbon Dioxide 25, Anion Gap 10.3, BUN 10, Creatinine 0.80, Estimated Creat Clear 75, Estimated GFR 74, Est GFR ( Amer) 89, Glucose 122 H, Calcium 9.5, Total Bilirubin 0.4, AST 49 H, ALT 43, Alkaline Phosphatase 129 H, Troponin I < 0.01, Total Protein 8.0, Albumin 5.0, Globulin 3.0, Albumin/Globulin Ratio 1.7 02/15/25 17:04: VBG pH 7.32, VBG pCO2 47.8, VBG pO2 31.0, VBG HCO3 24.2, VBG Total CO2 25.7, VBG O2 Saturation 60.3, VBG Base Excess -1.8, VBG Lactic Acid 1.3 02/15/25 16:54 02/15/25 16:54 Orders (Tests/Meds): ED MEDICATIONS Generic Name Dose Route Start Last Admin Trade Name Freq PRN Reason Stop Dose Admin Amoxicillin/Clavulanate Potassium 1 each 02/15/25 19:16 Amoxicillin/Clavulanate Potassium 875/125mg Tablet PO 02/15/25 19:17 ONCE ONE Azithromycin 500 mg 02/15/25 19:16 Azithromycin 250mg Tablet PO 02/15/25 19:17 ONCE ONE Sodium Chloride 10 ml 02/15/25 18:24 02/15/25 18:24 Sodium Chloride 0.9% 10ml Syr (Rad Only) IV 03/17/25 18:23 10 ml NEEDED PRN Administration Maintain IV Site Discontinued Medications Generic Name Dose Route Start Last Admin Trade Name Freq PRN Reason Stop Dose Admin Albuterol/Ipratropium 9 ml 02/15/25 17:04 02/15/25 17:13 Ipratropium/Albuterol 3 Ml Neb IH 02/15/25 17:05 9 ml ONCE ONE Administration Sodium Chloride 1,000 mls @ 999 mls/hr 02/15/25 17:04 02/15/25 17:21 Sod Chlor 0.9% 1000ml Bag IV 02/15/25 18:04 999 mls/hr .Q1H1M ONE Administration Magnesium Sulfate 2 gm in 50 mls @ 50 mls/hr 02/15/25 17:04 02/15/25 17:21 Magnesium Sulfate 2gm/50ml Premix IV 02/15/25 18:03 50 mls/hr ONCE ONE Administration Iopamidol 80 ml 02/15/25 18:24 02/15/25 18:24 Iopamidol-370 (76%);100ml Bottle IV 02/15/25 18:25 80 ml ONCE ONE Administration Methylprednisolone Sodium Succinate 125 mg 02/15/25 17:04 02/15/25 17:20 Methylprednisolone Sod Succ 125mg Vial IV 02/15/25 17:05 125 mg ONCE ONE Administration Ondansetron HCl 4 mg 02/15/25 17:19 02/15/25 17:20 Ondansetron 4mg/2ml Vial IV 02/15/25 17:20 4 mg ONCE ONE Administration Sodium Chloride 50 ml 02/15/25 18:24 02/15/25 18:24 0.9 % Sodium Chloride 50 Ml Vial IV 02/15/25 18:25 50 ml ONCE ONE Administration ORDERS Category Date Time Status CT angio chest PE protocol Stat Cat Scan 02/15/25 17:30 Completed CXR --portable [XR chest portable] Stat Exams 02/15/25 17:04 Completed CBC w/Auto Diff [Complete Blood Count Auto Diff] Stat Lab 02/15/25 16:54 Completed CMP [Comprehensive Metabolic Panel] Stat Lab 02/15/25 16:54 Completed D-Dimer Stat Lab 02/15/25 16:54 Completed Full Resp Panel w/COVID ([facility]) Routine Lab 02/15/25 19:16 Ordered Trop I [Troponin I] Stat Lab 02/15/25 16:54 Completed Troponin I Q3H Lab 02/15/25 20:15 Ordered Troponin I Q3H Lab 02/15/25 23:15 Ordered VBG [Venous Blood Gas] Stat RT 02/15/25 17:04 Completed Medical Decision Narrative: Patient is an otherwise healthy 54-year-old female with a past medical history of asthma who presented to the emergency department with shortness of breath. On arrival, patient was hypoxic requiring nasal cannula but otherwise hemodynamically stable. Afebrile. Differential includes but not limited to: Asthma exacerbation, viral syndrome, ACS/NE, pneumonia, pulmonary embolism, amongst others. Patient's labs were reviewed and interpreted by myself, CBC showed leukocytosis of 14, hemoglobin was stable. D-dimer was mildly elevated at 0.77. VBG showed no acidosis. No increased hypercapnia. CMP was unremarkable. Initial troponin was less than 0.01. EKG was reviewed and interpreted by myself and showed normal sinus rhythm at 86 bpm, poor baseline but no acute ST or T wave changes concerning for ischemia. Chest x-ray was reviewed and interpreted by myself and showed no acute for consolidation, pneumothorax, pleural effusion or other acute cardiopulmonary process Patient CT scan was reviewed and interpreted by myself and showed possible groundglass opacities, respiratory panel was ordered. Given that patient had significant wheezing on exam, I felt that patient's symptoms were likely an asthma exacerbation. Patient was given 3 DuoNebs on arrival however patient was having significant coughing and response to the DuoNebs and was having a hard time tolerating the DuoNebs therefore nebulized lidocaine was ordered which patient tolerated. Patient was then given an hour of continuous albuterol, IV steroids were ordered as well as IV magnesium and IV fluids. On reassessment, patient did improve clinically, patient had decreased amount of wheezing however patient was still mildly tachypneic requiring oxygen. Patient was requiring 2 L nasal cannula. Patient was symptomatic when she got up to walk. In that patient CT scan showed concern for possible groundglass opacities cities, patient was ordered Coverage with Augmentin and azithromycin. Given the patient was still symptomatic requiring 2 L nasal cannula I felt the patient warranted admission. I discussed the case with hospital medicine and patient was ultimately admitted to their service for further evaluation workup. Critical Care Critical Care Time Critical Care Time: Yes Attestation: On 02/15/25, the high probability of a clinically significant, sudden or life threatening deterioration of the following system(s) required my full and direct attention, intervention and personal management. The time I documented below is in addition to time spent performing reported procedures but includes the following listed in this critical care notation. Total Time Total Critical Care Time: 30
--- NOTE | 2025-02-15 19:34 | PC.NURSE ---
admitting provider at the bedside
[2025-02-15 19:38] LABS: Adenovirus,PCR Not Detected (NotDetected); Chlamydophila Pneumoniae, PCR Not Detected (NotDetected); Coronavirus 19, PCR Not Detected (NotDetected); Coronovirus HKU1,PCR Not Detected (NotDetected); Influenza A, PCR Not Detected (NotDetected); Influenza AH1, 2009 Not Detected (NotDetected); Influenza AH1, PCR Not Detected (NotDetected); Influenza AH3,PCR Not Detected (NotDetected); Influenza B, PCR Not Detected (NotDetected); Mycoplasma Pneumoniae, PCR Not Detected (NotDetected); Parainfluenza 1, PCR Not Detected (NotDetected); Parainfluenza 2, PCR Not Detected (NotDetected); Parainfluenza 3, PCR Not Detected (NotDetected); Parainfluenza 4, PCR Not Detected (NotDetected)
--- NOTE | 2025-02-15 19:59 | PC.NURSE ---
report given to Maikol CLARK on the floor.
--- NOTE | 2025-02-15 20:06 | P.HP_ITS ---
<Statement entered by Yazan Schmitz MD - 02/16/25 14:23> Rounded on patient after nurse practitioner. Personally examined and interviewed patient. Agree with exam findings and care plan as documented. Had repeat CBC, CMP, magnesium ordered for the morning. Pulmonology consulted to assist with care given concern for atypical infection versus asthma exacerbation. Stable on oxygen overnight, decreased work of breathing. History of Present Illness *Admission Date: 02/15/25 *Reason for visit:: Asthma attack with new oxygen requirement *History of present illness: This 59-year-old female [place], coming to the emergency room with new oxygen requirement and severe asthma attack. Evaluating patient looking for anything new in her life new medicines being exposed anybody sick being exposed to other animals has not showed anything significant. Patient is noted that she has a barn full of hay sharath that she has been and also that she has been moving bags of mulch. That she began to feel bad a couple of weeks ago as she was moving the mulch is progressively gotten worse.. Question whether fungal infection related to a and mulch might be the culprit here.. Patient's only had mild asthma in the past has an inhaler that she uses infrequently but began to use it more until she actually ran out of her inhaler at home a day or 2 ago. No one else in the family has been sick she has not been around any small children. 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 After talking with the ER provider and have been seeing the treatment to done the patient is much improved at this time but still requiring oxygen. I agree that the patient need to be placed on the floor on continuous pulse ox at this time we will continue steroid add 2 types of antihistamine nondrowsy and a Benadryl at night., Consult pulmonology will try to get sputum to see if we can get anything to grow. The patient is stable at this time and able to speak in full sentences but is still has a rapid respiratory rate [facility] Disclaimer: The information contained in this section may have been updated after the berto kirkpatrick was seen, as this information can be updated by other users. Medical History (Updated 02/15/25 @ 20:19 by Chris Schofield APRN) Exposure to COVID-19 virus COVID-19 Abscess, dental Renal calculi Social History Smoking Status: Never smoker alcohol intake: never substance use type: denies use current occupational status: other Travel in the last 8 weeks?: None Have you lived/traveled outside US in past 30 days?: No Contact w/someone who lives/traveled outside US past 30 days?: No Exposure to someone with infectious disease in past 14 days?: No Do you have a fever (greater than 100.4 F or 38 C)?: No Have you tested positive for COVID-19?: No Exposed to someone with COVID-19 in past 14 days?: No Do you have a sore throat?: No Do you have a cough?: No Do you have any weakness?: No Do you have any diarrhea?: No Are you experiencing any unusual bleeding?: No Do you have any muscle aches/pain?: No Do you have any abdominal pain?: No Are you experiencing loss of taste or smell?: No Other Medical History Have you received the Flu Vaccine for this season: Yes Have you received the Pneumonia Vaccine: No Review of Systems Review of Systems Review of systems:: pertinent systems reviewed and negative unless documented below Constitutional Constitutional: Reports as per HPI and Reports malaise Comments: Now requiring nasal cannula oxygen ENT Ears, Nose, Mouth, and Throat: Reports as per HPI *Cardiovascular Cardiovascular: Reports as per HPI, Reports dyspnea and Reports dyspnea on ex ertion *Respiratory Respiratory: Reports as per HPI, Reports cough, Reports dyspnea and Reports dyspnea on exertion *Gastrointestinal Gastrointestinal: Reports as per HPI *Genitourinary Genitourinary: Reports as per HPI *Musculoskeletal Musculoskeletal: Reports as per HPI Integumentary/Breasts Skin/Breast: Reports as per HPI *Neurologic Neurologic: Reports as per HPI Psychiatric Psychiatric: Reports as per HPI Endocrine Endocrine: Reports as per HPI Hematologic/Lymphatic Hematologic/Lymphatic: Reports as per HPI Allergic/Immunologic Allergic/Immunologic: Reports as per HPI Meds Home Medications and Allergies Home Medications ?Medication ?Instructions ?Recorded ?Confirmed ?Type albuterol sulfate 90 mcg/actuation 1 inh inhalation Q4 -6H PRN 06/23/19 01/19/20 Rx breath activated powder inhaler shortness of breath or wheezing #1 ea azithromycin 250 mg tablet See Rx Instructions PO .COM PLEX #6 06/23/19 01/19/20 Rx tabs bywhvgknnvbodtm-ehqxufdxakdncja-GM 10 ml PO Q4-6H PRN sinus symptoms 12/16/19 07/13/20 Rx 2 mg-30 mg-10 mg/5 mL oral syrup #220 mL (Bromfed DM) nirmatrelvir 300 mg (150 mg 1 packet PO DIRECTED 5 days #1 02/23/22 Rx x2)-ritonavir 100 mg tablet,dose packet pack ondansetron 4 mg disintegrating 4 mg PO Q8HP PRN Nause a #20 tabs 02/23/22 Rx tablet New Prescriptions to Start Prescriptions: Allergies Allergy/AdvReac Type Severity Reaction Status Date / Time No Known Allergies Allergy Verified 02/23/22 16:58 Exam Data for Last 24 hours Vital signs and Labs for Last 24 Hours: Temp Pulse Resp BP Pulse Ox O2 Del Method O2 Flow Rate 98.5 F 95 H 18 128/73 95 Nasal Cannula 1 02/15/25 20:00 02/15/25 20:00 02/15/25 20:00 02/15/25 20:00 02/15/25 19:10 02/15/25 20:00 02/15/25 20:00 Laboratory Results - last 24 hr 02/15/25 16:54: WBC 14.2 H, RBC 5.28, Hgb 16.1, Hct 47.6 H, MCV 90.2, MCH 30.5, MCHC 33.8, RDW 12.2, Plt Count 381, MPV 9.7, Neut % (Auto) 85.8 H, Lymph % (Auto) 8.2 L, Lake % (Auto) 4.1, Eos % (Auto) 1.2, Baso % (Auto) 0.5, Neut # (Auto) 12.2 H, Lymph # (Auto) 1.2, Lake # (Auto) 0.6, Eos # (Auto) 0.2, Baso # (Auto) 0.1, D-Dimer 0.77 H, Sodium 137, Potassium 4.3, Chloride 106, Carbon Dioxide 25, Anion Gap 10.3, BUN 10, Creatinine 0.80, Estimated Creat Clear 75, Estimated GFR 74, Est GFR ( Amer) 89, Glucose 122 H, Calcium 9.5, Total Bilirubin 0.4, AST 49 H, ALT 43, Alkaline Phosphatase 129 H, Troponin I < 0.01, Total Protein 8.0, Albumin 5.0, Globulin 3.0, Albumin/Globulin Ratio 1.7 02/15/25 17:04: VBG pH 7.32, VBG pCO2 47.8, VBG pO2 31.0, VBG HCO3 24.2, VBG Total CO2 25.7, VBG O2 Saturation 60.3, VBG Base Excess -1.8, VBG Lactic Acid 1.3 I & O for Last 24 hours: Intake & Output 02/13/25 02/14/25 02/15/25 02/16/25 05:59 05:59 05:59 05:59 Weight 135 lb Radiology Reports for the Last 24 Hours: 1. No evident PE. 2. Mild bilateral ground-glass opacity suggesting atypical infectious or inflammatory pneumonitis. Advise follow-up to ensure resolution. Constitutional Constitutional: moderate distress, obese and cooperative *Routine HEENT Exam Head: Present normocephalic and atraumatic Eye: Present EOMI and PERRL ENT: Present mucous membranes moist, oropharynx clear, dentition normal, nares patent and external ear normal *Routine Neck Exam Neck: Present supple and full ROM Routine Chest/Breast/Axilla Exam Comments: Equal expansion of chest no signs of injury no signs of pain *Routine Respiratory Exam Respiratory: Present accessory muscle use, wheezes, distant breath sounds, able to speak in complete sentences and symmetric chest movement *Routine Cardiovascular Exam Cardiovascular: Present RRR, Normal S1 and Normal S2 *Routine Abdominal Exam Abdominal: Present soft and normoactive bowel sounds *Routine Rectal Exam Rectal:: deferred *Routine Genitalia Exam Genitalia:: deferred *Routine Extremities Exam Extremities: Present full ROM and pulses intact *Routine Skin Exam Skin: Present intact, dry, warm and normal turgor *Routine Neurological Exam Neurological: Present alert, oriented X3, CN II-XII intact, moving all extremities, normal tone, vision grossly intact and hearing grossly intact H&P: Result Impressions 1. Asthma attack requiring oxygen supplement unknown cause Imaging and Cardiology CT scan - chest: Status: image reviewed by me Additional comments: 1. No evident PE. 2. Mild bilateral ground-glass opacity suggesting atypical infectious or inflammatory pneumonitis. Advise follow-up to ensure resolution. Assessment and Plan *Assessment and plan (1) Asthma exacerbation: Status: Acute Qualifiers: Asthma persistence: unspecified Asthma severity: severe Qualified Code(s): J45.901 - Unspecified asthma with (acute) exacerbation Category: Medical Code(s): J45.901 - Unspecified asthma with (acute) exacerbation (2) Pneumonia: Status: Acute Qualifiers: Laterality: bilateral Lung location: lower lobe of lung Pneumonia type: due to unspecified organism Qualified Code(s): J18.9 - Pneumonia, unspecified organism Category: Medical Code(s): J18.9 - Pneumonia, unspecified organism (3) Requires supplemental oxygen: Status: Acute Category: Medical Code(s): Z99.81 - Dependence on supplemental oxygen Plan 1. Unknown cause for sudden asthma outbreak that has required use of bronchodilator but now requiring supplemental oxygen. Patient noted working around hay in a barn and also braiding mulch. Question to rule out fungal infection. Will continue patient up on oxygen nebulizer treatments add a nondrowsy antihistamine Benadryl at night., Pulmonary consult has been placed will try to obtain sputum culture.. We will see if we get this lady back to her baseline, and rule out an allergic component versus a infectious component.
[2025-02-15] MEDS: LORATADINE 10MG TABLET 10 MG PO (21:19)
[2025-02-15] MEDS: DEXAMETHASONE 4MG/ML 1ML VIAL 4 MG IV (21:19)
[2025-02-15] MEDS: AZITHROMYCIN 250MG TABLET 500 MG PO (21:19)
[2025-02-15] MEDS: AMOXICILLIN/CLAVULANATE POTASSIUM 875/125MG TABLET 1 EACH PO (21:19)
[2025-02-15] MEDS: PANTOPRAZOLE 40MG TABLET 40 MG PO (21:21)
[2025-02-15 21:39] LABS: Troponin I < 0.01 ng/ml (0.00-0.034)
[2025-02-15] MEDS: KETOROLAC 30MG/ML VIAL 5 MG IV (21:40)
[2025-02-15] MEDS: IPRATROPIUM/ALBUTEROL 3 ML NEB IH (23:12)
[2025-02-16] VITALS (12 sets, daily range): BP systolic 103–150; BP diastolic 62–80; PULSE 48–107; RESP 16–22; TEMP 36.4–37; O2SAT 91–98; BMI 27.1
[2025-02-16 00:13] LABS: Troponin I < 0.01 ng/ml (0.00-0.034)
--- NOTE | 2025-02-16 03:53 | PC.NURSE ---
Pt A&OX4. Expiratory wheezing heard throughout lungs. She is currently on 4L nasal cannula sating at 93%. She has received multiple breathing treatments this shift. She reports SOA that comes and goes. Educated on incentive spirometer. She has ambulated with standby assist. She did complain of back pain once and was medicated per MAR. Family member has remained at bedside. No other complaints at this time,call light within reach.
[2025-02-16] MEDS: BROMPHEN/DM/PSE COUGH SYRUP 5ML 5 ML PO ×2 (04:12→22:09)
[2025-02-16] MEDS: KETOROLAC 30MG/ML VIAL 5 MG IV (04:49)
[2025-02-16] MEDS: BUDESONIDE 0.5MG/2ML NEB 0.5 MG IH (06:24)
[2025-02-16] MEDS: IPRATROPIUM/ALBUTEROL 3 ML NEB IH ×3 (06:24→19:45)
[2025-02-16] MEDS: SODIUM CHLORIDE 3% 15ML NEB 3 ML IH (06:25)
--- NOTE | 2025-02-16 07:04 | RESP.PFTSS ---
Sputum induction performed. patient had a strong, productive cough. Sputum sent to lab.
[2025-02-16 07:11] LABS: Hematocrit 43.3 % (37.0-47.0); Immature Granulocytes % 0.7 %; Mean Corpuscular HGB Conc 32.8 g/dL (31.8-35.4); Mean Corpuscular Hemoglobin 29.8 pg (27.0-31.2); Mean Corpuscular Volume 91.0 fl (81-99); Nucleated Red Blood Cells % 0 %; Platelet Count 325 K/mm3 (142-424); Red Blood Count 4.76 M/mm3 (4.20-5.40); Red Cell Distribution Width-SD 41.6 fL; White Blood Count 18.4 K/mm3 (4.8-10.8)
[2025-02-16 07:32] LABS: Albumin Level 4.5 g/dl (3.5-5.0); Chloride 106 mmol/L (98-107); Potassium 4.0 mmoL/L (3.5-5.1); Sodium 138 mmol/L (136-145)
[2025-02-16 07:35] LABS: Alanine Aminotransferase 39 U/L (12-78); Albumin/Globulin Ratio 1.8 (1.1-1.8); Alkaline Phosphatase 104 U/L (38-126); Anion Gap 11.0 mEq/L (5-15); Aspartate Amino Transferase 46 U/L (14-36); Bilirubin,Total 0.3 mg/dl (0.2-1.3); Blood Urea Nitrogen 12 mg/dl (7-17); Calcium 8.9 mg/dl (8.4-10.2); Carbon Dioxide 25 mmol/L (22.0-30.0); Creatinine Clearance Estimated 77 mL/min (50-200); Creatinine,Serum 0.80 mg/dl (0.52-1.04); Estimated Glomerular Filt Rate 74 ml/min (>60); GFR (African American) 89 ML/MIN (>60); Globulin 2.5 g/dL (1.3-3.2); Glucose 140 mg/dl (74-100); Total Protein,Serum 7.0 g/dl (6.3-8.2)
[2025-02-16] MEDS: LORATADINE 10MG TABLET 10 MG PO ×2 (08:21→20:36)
[2025-02-16] MEDS: DEXAMETHASONE 4MG/ML 1ML VIAL 4 MG IV (08:21)
[2025-02-16 09:09] LABS: Hemoglobin 14.2 g/dL (12.2-16.2)
--- NOTE | 2025-02-16 09:27 | SW/DCPLANNER ---
Spoke with patient regarding medicine and patient stated that she has everything at home. Patient stated that the only reason why she didnt have her inhaler was due to [facility] was not open on Sunday. I showed the patient the resource packet in the folder. Casi HARRISON Dietary Service Aide
--- NOTE | 2025-02-16 09:39 | EXP.PULM.CON ---
History of Present Illness History of present illness: Ms. Flores is a 59-year-old female with reported history of asthma presented with worsening respiratory distress and pulmonary was called for further evaluation and management. Greater than [id number] smoking history last smoked 2019. Carries a historical diagnosis of asthma using albuterol Hailer, needing to decrease once every day at her baseline. Worsening symptoms for the last 1 week. Admits family history of asthma. Not using any oxygen supplementation at baseline [facility] Disclaimer: The information contained in this section may have been updated after the patient was seen, as this information can be updated by other users. Medical History (Updated 02/16/25 @ 10:37 by Patricia Mobley MD) Acute respiratory failure with hypoxia FH: cholecystectomy Asthma Exposure to COVID-19 virus COVID-19 Abscess, dental Renal calculi Social History Smoking Status: Never smoker alcohol intake: never substance use type: denies use current occupational status: other Travel in the last 8 weeks?: None Have you lived/traveled outside US in past 30 days?: No Contact w/someone who lives/traveled outside US past 30 days?: No Exposure to someone with infectious disease in past 14 days?: No Do you have a fever (greater than 100.4 F or 38 C)?: No Have you tested positive for COVID-19?: No Exposed to someone with COVID-19 in past 14 days?: No Do you have a sore throat?: No Do you have a cough?: No Do you have any weakness?: No Do you have any diarrhea?: No Are you experiencing any unusual bleeding?: No Do you have any muscle aches/pain?: No Do you have any abdominal pain?: No Are you experiencing loss of taste or smell?: No Review of Systems Constitutional Constitutional: Reports body ache(s) and Reports lethargy Eyes Eyes: Denies eye discharge, Denies dry eyes, Denies irritation and Denies itchy eyes ENT Ears, Nose, Mouth, and Throat: Denies epistaxis, Denies facial pain, Denies lip swelling and Denies throat swelling *Cardiovascular Cardiovascular: Reports dyspnea and Reports dyspnea on exertion *Respiratory Respiratory: Denies change in phlegm color, Reports chest congestion, Reports cough, Reports dyspnea, Reports dyspnea on exertion, Reports excessive phlegm production, Denies hemoptysis, Denies pain on inspiration, Denies pain with cough and Reports wheezing *Gastrointestinal Gastrointestinal: Denies abdominal pain, Denies belching and Denies cramping *Musculoskeletal Musculoskeletal: Reports back pain, Reports myalgias and Reports other (No small joint swelling or Pain) *Neurologic Neurologic: Reports as per HPI Psychiatric Psychiatric: Denies homicidal ideation and Denies suicidal ideation Endocrine Endocrine: Denies heat intolerance Hematologic/Lymphatic Hematologic/Lymphatic: Denies easy bleeding and Denies lymphadenopathy Allergic/Immunologic Allergic/Immunologic: Denies itchy eyes, Denies lip swelling, Denies throat swelling and Reports wheezing Pulmonology Exam Inpatient Vital signs and Labs for Last 24 Hours: Temp Pulse Resp BP Pulse Ox O2 Del Method O2 Flow Rate 98.2 F 107 H 22 116/65 94 L Nasal Cannula 3 02/16/25 07:34 02/16/25 07:34 02/16/25 07:34 02/16/25 07:34 02/16/25 07:34 02/16/25 09:00 02/16/25 09:00 FiO2 32 02/16/25 00:21 Laboratory Results - last 24 hr 02/15/25 16:54: WBC 14.2 H, RBC 5.28, Hgb 16.1, Hct 47.6 H, MCV 90.2, MCH 30.5, MCHC 33.8, RDW 12.2, Plt Count 381, MPV 9.7, Neut % (Auto) 85.8 H, Lymph % (Auto) 8.2 L, Pick[place] % (Auto) 4.1, Eos % (Auto) 1.2, Baso % (Auto) 0.5, Neut # (Auto) 12.2 H, Lymph # (Auto) 1.2, Pickens # (Auto) 0.6, Eos # (Auto) 0.2, Baso # (Auto) 0.1, D-Dimer 0.77 H, Sodium 137, Potassium 4.3, Chloride 106, Carbon Dioxide 25, Anion Gap 10.3, BUN 10, Creatinine 0.80, Estimated Creat Clear 75, Estimated GFR 74, Est GFR ( Amer) 89, Glucose 122 H, Calcium 9.5, Total Bilirubin 0.4, AST 49 H, ALT 43, Alkaline Phosphatase 129 H, Troponin I < 0.01, Total Protein 8.0, Albumin 5.0, Globulin 3.0, Albumin/Globulin Ratio 1.7 02/15/25 17:04: VBG pH 7.32, VBG pCO2 47.8, VBG pO2 31.0, VBG HCO3 24.2, VBG Total CO2 25.7, VBG O2 Saturation 60.3, VBG Base Excess -1.8, VBG Lactic Acid 1.3 02/15/25 19:32: Chlamy pneumoniae PCR Not detected, Adenovirus (PCR) Not detected, B. pertussis DNA (PCR) Not detected, Coronavirus OC43 (PCR) Not detected, Coronavirus HKU1 (PCR) Not detected, Coronavirus 229E (PCR) Not detected, SARS-CoV-2 (PCR) Not detected, Coronavirus NL63 (PCR) Not detected, Human Metapneumovir PCR Not detected, Influenza A (H1) PCR Not detected, Influ A (H1N1/09) PCR Not detected, Influenza A (H3) PCR Not detected, Influenza Type A (PCR) Not detected, Influenza Type B (PCR) Not detected, M. pneumoniae (PCR) Not detected, Parainfluenza 1 (PCR) Not detected, Parainfluenza 2 (PCR) Not detected, Parainfluenza 3 (PCR) Not detected, Parainfluenza 4 (PCR) Not detected, RSV (PCR) Not detected, Entero/Rhino (PCR) Not detected 02/15/25 20:50: Troponin I < 0.01 02/15/25 23:37: Troponin I < 0.01 02/16/25 06:38: WBC 18.4 H D, RBC 4.76, Hgb 14.2 D, Hct 43.3, MCV 91.0, MCH 29.8, MCHC 32.8, RDW 12.6, Plt Count 325, MPV 9.9, Neut % (Auto) 93.1 H, Lymph % (Auto) 4.0 L, Pickens % (Auto) 2.1, Eos % (Auto) 0.0 L, Baso % (Auto) 0.1, Neut # (Auto) 17.1 H, Lymph # (Auto) 0.7, Pickens # (Auto) 0.4, Eos # (Auto) 0.0, Baso # (Auto) 0.0, Sodium 138, Potassium 4.0, Chloride 106, Carbon Dioxide 25, Anion Gap 11.0, BUN 12, Creatinine 0.80, Estimated Creat Clear 77, Estimated GFR 74, Est GFR ( Amer) 89, Glucose 140 H, Lactate 1.2, Calcium 8.9, Total Bilirubin 0.3, AST 46 H, ALT 39, Alkaline Phosphatase 104, Total Protein 7.0, Albumin 4.5, Globulin 2.5, Albumin/Globulin Ratio 1.8 I & O for Labs for Last 24 Hours: Intake & Output 02/13/25 02/14/25 02/15/25 02/16/25 23:59 23:59 23:59 23:59 Intake Total 200 / 200 Output Total 500 / 500 0 / 0 Balance -300 / -300 0 / 0 Weight 138 lb 6 oz 138 lb 5.794 oz Constitutional: Present mild distress Head: Present normocephalic and atraumatic ENT: Present normal exam, normal oropharynx and mucous membranes moist Neck: Present normal inspection and full ROM Respiratory: Present prolonged expiratory phase, respiratory distress and able to speak in complete sentences; Absent wheezes Cardiac: Present S1/S2, Tachycardia and radial pulses present GI: Present soft and distention; Absent tenderness or guarding Rectal (female): Present deferred (female): Present deferred Skin: Present intact; Absent cyanosis or jaundice Neuro: Present alert, awake and oriented x 3 Extremities: Present normal inspection; Absent clubbing or cyanosis Psychiatric: Present normal affect and cooperative Meds Home Medications and Allergies Home Medications ?Medication ?Instructions ?Recorded ?Confirmed ?Type rosuvastatin 40 mg tablet 40 mg PO DAILY 02/15/25 02/15/25 History albuterol sulfate 90 mcg/actuation 1 inh inhalation Q4HP PRN 02/16/25 02/16/25 History breath activated powder inhaler shortness of breath or wheezing New Prescriptions to Start Prescriptions: Allergies Allergy/AdvReac Type Severity Reaction Status Date / Time No Known Allergies Allergy Verified 02/23/22 16:58 Results Laboratory Findings 02/16/25 06:38 02/16/25 06:38 PT/INR, D-dimer D-Dimer 0.77 ug/mL (0.0-0.5) H 02/15/25 16:54 Abnormal lab findings: Abnormal Labs 02/15/25 02/16/25 16:54 06:38 WBC 14.2 H 18.4 H D Hct 47.6 H Neut % (Auto) 85.8 H 93.1 H Lymph % (Auto) 8.2 L 4.0 L Eos % (Auto) 0.0 L Neut # (Auto) 12.2 H 17.1 H D-Dimer 0.77 H Glucose 122 H 140 H AST 49 H 46 H Alkaline Phosphatase 129 H Assessment and Plan *Assessment and plan (1) Asthma exacerbation: Status: Acute Qualifiers: Asthma persistence: unspecified Asthma severity: severe Qualified Code(s): J45.901 - Unspecified asthma with (acute) exacerbation Category: Medical Code(s): J45.901 - Unspecified asthma with (acute) exacerbation (2) Pneumonia: Status: Acute Qualifiers: Laterality: bilateral Lung location: lower lobe of lung Pneumonia type: due to unspecified organism Qualified Code(s): J18.9 - Pneumonia, unspecified organism Category: Medical Code(s): J18.9 - Pneumonia, unspecified organism (3) Acute respiratory failure with hypoxia: Status: Acute Category: Medical Code(s): J96.01 - Acute respiratory failure with hypoxia Plan Ms. Flores is a 59-year-old female with reported history of asthma presented with worsening respiratory distress and pulmonary was called for further evaluation and management. Greater than [id number] smoking history last smoked 2019. Carries a historical diagnosis of asthma using albuterol Hailer, needing to decrease once every day at her baseline. Worsening symptoms for the last 1 week. Admits family history of asthma. Not using any oxygen supplementation at baseline Afebrile. Hemodynamically stable. Neutrophilic predominant leukocytosis upon admission worsening. Blood gas upon admission did not show any evidence of hypoxic/hypercarbic respiratory failure Comprehensive respiratory viral PCR panel negative. CTA upon admission no pulmonary embolism. Diffuse bronchial thickening noted. Faint lung base opacity left lingula left lower lobe and right lower lobe no dense consolidative changes noted. Currently receiving DuoNebs Pulmicort and IV steroids. Also received Augmentin and azithromycin. Plan: Flutter valve Weaned to room air this morning saturations at 90 to 91%. Recommend 6-minute walk testing prior to discharge. Initiate Advair 500 inhaler 1 puff twice daily Doxycycline to complete a total of 5-day course We instructed prednisone 40 mg daily to complete a total of 5-day course # Thank you for involving pulmonary in this patient care. Will follow the patient in pulmonary clinic 2 to 3 weeks postdischarge.
--- OUTSIDE RECORDS SUMMARY | 2025-02-16 09:46 | XMS_ITS | Clinical Summary ---
Author Organization [facility] Address [address] [place] [address] Phone Care Team Providers Care Plumber And Tinner Name Role Phone Unavailable Primary Care Provider [...] EST Impressions 08/21/2024 4:23 PM EST Negative ([id number]) ASSESSMENT TEXT: No mammographic evidence of malignancy. RECOMMENDATION: Routine Screening Mammogram in 1 Year Bilateral COMMENTS: Return for evaluation with any concerning changes. The findings and recommendations were discussed with the patient following the examination. Narrative 08/21/2024 4:23 PM EST EXAM: MM MAMMO DIGITAL ROBERTO DIAGN LEFT EXAM DATE: 08/21/2024 INDICATION: R92.8-Other abnormal and inconclusive findings on diagnostic imaging of [id number] COMPARISON STUDIES: No Qualifying Comparisons Found TISSUE [...] abnormal and inconclusive findings on diagnosticimaging of [id number] COMPARISON STUDIES: No Qualifying Comparisons Found TISSUE DENSITY: The breasts are heterogeneously dense, which may obscuresmall masses. FINDINGS: The questioned area of distortion effaces with supplementalviews compatible with summation artifact of normal breast tissue. Nosuspicious mammographic findings. IMPRESSION: Negative ([id number]) ASSESSMENT TEXT: No mammographic evidence of malignancy. RECOMMENDATION: Routine Screening Mammogram in 1 Year Bilateral COMMENTS: Return for evaluation with any concerning changes. The findingsand recommendations were discussed with the patient following theexamination. Toyin Holguin APRN IM MAMMOGRAPHY ORDERABLES Fin al Result from Last 3 Months or Most Recently Relevant to Health Maintenance Insurance O
[2025-02-16] MEDS: DOXYCYCLINE HYCL 100 MG TABLET PO ×2 (11:48→20:36)
--- NOTE | 2025-02-16 11:54 | P.PN_ITS ---
<Statement entered by Yazan Schmitz MD - 02/16/25 13:31> Rounded on patient after nurse practitioner. Personally examined and interviewed patient. Agree with exam findings and care plan as documented. Subjective *Date: 02/16/25 *Time: 12:57 Interval history: Patient sitting up in bed, daughter at bedside. She states she feels better than when she came in, still short of breath. Weaned to 2 L nasal cannula, O2 saturation 95%. Expiratory wheezing noted on exam. Start prednisone 40 mg and doxycycline 100 mg twice daily per pulmonology. DuoNebs and Pulmicort. Medical Exam Vital signs and Labs for Last 24 Hours: Vital Signs Temp Pulse Pulse Resp BP BP Pulse Ox 02/16/25 11:00 02/16/25 09:00 02/16/25 08:17 02/16/25 07:34 98.2 F 107 H 22 116/65 94 L 02/16/25 06:41 02/16/25 06:28 48 L 02/16/25 06:28 50 L 02/16/25 06:28 96 02/16/25 05:00 02/16/25 04:00 97.9 F 107 H 22 150/80 H 91 L 02/16/25 03:00 02/16/25 01:00 02/16/25 00:21 02/16/25 00:20 94 H 02/16/25 00:00 97.6 F 96 H 18 123/78 91 L 02/15/25 23:00 02/15/25 21:00 02/15/25 20:50 97.5 F L 99 H 18 143/87 H 90 L 02/15/25 20:00 98.5 F 95 H 18 128/73 02/15/25 19:26 93 L 02/15/25 19:10 95 H 128/73 95 02/15/25 19:00 93 H 137/66 92 L 02/15/25 19:00 98 H 02/15/25 18:40 100 H 147/100 H 95 02/15/25 18:30 99 H 142/79 H 97 02/15/25 18:07 98 H 137/86 98 02/15/25 17:50 98 H 139/88 98 02/15/25 17:45 98 H 138/78 99 02/15/25 17:31 98 H 129/64 99 02/15/25 17:21 82 160/115 H 95 02/15/25 17:10 89 150/80 H 95 02/15/25 17:01 87 140/67 97 02/15/25 16:58 98 02/15/25 16:50 83 169/92 H 89 L 02/15/25 16:44 98.5 F 85 26 H 157/67 H 84 L O2 Del Method O2 Flow Rate FiO2 02/16/25 11:00 Room Air 02/16/25 09:00 Nasal Cannula 3 02/16/25 08:17 Nasal Cannula 3 02/16/25 07:34 Nasal Cannula 4 02/16/25 06:41 Nasal Cannula 4 02/16/25 06:28 02/16/25 06:28 02/16/25 06:28 Nasal Cannula 4 02/16/25 05:00 Nasal Cannula 4 02/16/25 04:00 4 02/16/25 03:00 Nasal Cannula 4 02/16/25 01:00 Nasal Cannula 4 02/16/25 00:21 Nasal Cannula 3 32 02/16/25 00:20 02/16/25 00:00 Nasal Cannula 3 02/15/25 23:00 Nasal Cannula 4 02/15/25 21:00 Nasal Cannula 3 02/15/25 20:50 Nasal Cannula 3 02/15/25 20:00 Nasal Cannula 1 02/15/25 19:26 Nasal Cannula 3 02/15/25 19:10 Nasal Cannula 1 02/15/25 19:00 Nasal Cannula 1 02/15/25 19:00 02/15/25 18:40 Nasal Cannula 2 02/15/25 18:30 Nasal Cannula 2 02/15/25 18:07 Nasal Cannula 2 02/15/25 17:50 Nasal Cannula 2 02/15/25 17:45 Nasal Cannula 2 02/15/25 17:31 Nasal Cannula 2 02/15/25 17:21 Nasal Cannula 2 02/15/25 17:10 Nasal Cannula 2 02/15/25 17:01 Nasal Cannula 2 02/15/25 16:58 Nasal Cannula 2 02/15/25 16:50 Room Air 02/15/25 16:44 Room Air Intake and Output 02/15/25 02/16/25 02/16/25 23:59 07:59 15:59 Intake Total 200 / 200 240 / 240 Output Total 500 / 500 0 / 0 Balance -300 / -300 0 / 240 240 / 240 Intake: Intake, Oral Amount 200 / 200 240 / 240 Output: Output, Urine Amount 500 / 500 0 / 0 Other: Number of Unmeasured Voids 1 1 Weight 62.766 kg 62.76 kg Patient Weight 02/16/25 23:59 Weight 62.76 kg Laboratory Results - last 24 hr 02/15/25 16:54: WBC 14.2 H, RBC 5.28, Hgb 16.1, Hct 47.6 H, MCV 90.2, MCH 30.5, MCHC 33.8, RDW 12.2, Plt Count 381, MPV 9.7, Neut % (Auto) 85.8 H, Lymph % (Auto) 8.2 L, Wise % (Auto) 4.1, Eos % (Auto) 1.2, Baso % (Auto) 0.5, Neut # (Auto) 12.2 H, Lymph # (Auto) 1.2, Wise # (Auto) 0.6, Eos # (Auto) 0.2, Baso # (Auto) 0.1, D-Dimer 0.77 H, Sodium 137, Potassium 4.3, Chloride 106, Carbon Dioxide 25, Anion Gap 10.3, BUN 10, Creatinine 0.80, Estimated Creat Clear 75, Estimated GFR 74, Est GFR ( Amer) 89, Glucose 122 H, Calcium 9.5, Total Bilirubin 0.4, AST 49 H, ALT 43, Alkaline Phosphatase 129 H, Troponin I < 0.01, Total Protein 8.0, Albumin 5.0, Globulin 3.0, Albumin/Globulin Ratio 1.7 02/15/25 17:04: VBG pH 7.32, VBG pCO2 47.8, VBG pO2 31.0, VBG HCO3 24.2, VBG Total CO2 25.7, VBG O2 Saturation 60.3, VBG Base Excess -1.8, VBG Lactic Acid 1.3 02/15/25 19:32: Chlamy pneumoniae PCR Not detected, Adenovirus (PCR) Not detected, B. pertussis DNA (PCR) Not detected, Coronavirus OC43 (PCR) Not detected, Coronavirus HKU1 (PCR) Not detected, Coronavirus 229E (PCR) Not detected, SARS-CoV-2 (PCR) Not detected, Coronavirus NL63 (PCR) Not detected, Human Metapneumovir PCR Not detected, Influenza A (H1) PCR Not detected, Influ A (H1N1/09) PCR Not detected, Influenza A (H3) PCR Not detected, Influenza Type A (PCR) Not detected, Influenza Type B (PCR) Not detected, M. pneumoniae (PCR) Not detected, Parainfluenza 1 (PCR) Not detected, Parainfluenza 2 (PCR) Not detected, Parainfluenza 3 (PCR) Not detected, Parainfluenza 4 (PCR) Not detected, RSV (PCR) Not detected, Entero/Rhino (PCR) Not detected 02/15/25 20:50: Troponin I < 0.01 02/15/25 23:37: Troponin I < 0.01 02/16/25 06:38: WBC 18.4 H D, RBC 4.76, Hgb 14.2 D, Hct 43.3, MCV 91.0, MCH 29.8, MCHC 32.8, RDW 12.6, Plt Count 325, MPV 9.9, Neut % (Auto) 93.1 H, Lymph % (Auto) 4.0 L, Wise % (Auto) 2.1, Eos % (Auto) 0.0 L, Baso % (Auto) 0.1, Neut # (Auto) 17.1 H, Lymph # (Auto) 0.7, Wise # (Auto) 0.4, Eos # (Auto) 0.0, Baso # (Auto) 0.0, Sodium 138, Potassium 4.0, Chloride 106, Carbon Dioxide 25, Anion Gap 11.0, BUN 12, Creatinine 0.80, Estimated Creat Clear 77, Estimated GFR 74, Est GFR ( Amer) 89, Glucose 140 H, Lactate 1.2, Calcium 8.9, Total Bilirubin 0.3, AST 46 H, ALT 39, Alkaline Phosphatase 104, Total Protein 7.0, Albumin 4.5, Globulin 2.5, Albumin/Globulin Ratio 1.8 I & O for Labs for Last 24 Hours: Intake & Output 02/13/25 02/14/25 02/15/25 02/16/25 23:59 23:59 23:59 23:59 Intake Total 200 / 200 240 / 240 Output Total 500 / 500 0 / 0 Balance -300 / -300 240 / 240 Weight 62.766 kg 62.76 kg Microbiology Reports for the Last 24 Hours: Microbiology 02/15/25 06:50 Sputum - Expectorated Sputum Gram Stain - Final Constitutional: Present no acute distress and cooperative Head: Present atraumatic ENT: Present normal exam Neck: Present normal inspection Respiratory: Present prolonged expiratory phase, wheezes (Expiratory), able to speak in complete sentences and symmetric chest movement; Absent crackles Cardiac: Present Regular Rhythm and Tachycardia; Absent No Murmur GI: Present soft, distention and normal bowel sounds; Absent tenderness Rectal (female): Present deferred (female): Present deferred Extremities: Present normal inspection and full ROM; Absent edema Skin: Present intact and dry Neuro: Present Grossly Intact, alert, awake and oriented x 3 Assessment and Plan *Assessment and plan (1) Acute respiratory failure with hypoxia: Status: Acute Category: Medical Code(s): J96.01 - Acute respiratory failure with hypoxia (2) Asthma exacerbation: Status: Acute Qualifiers: Asthma persistence: unspecified Asthma severity: severe Qualified Code(s): J45.901 - Unspecified asthma with (acute) exacerbation Category: Medical Code(s): J45.901 - Unspecified asthma with (acute) exacerbation (3) Pneumonia: Status: Acute Qualifiers: Laterality: bilateral Lung location: lower lobe of lung Pneumonia type: due to unspecified organism Qualified Code(s): J18.9 - Pneumonia, unspecified organism Category: Medical Code(s): J18.9 - Pneumonia, unspecified organism (4) Leukocytosis: Status: Acute Category: Medical Code(s): D72.829 - Elevated white blood cell count, unspecified (5) Hyperlipidemia: Status: Acute Category: Medical Code(s): E78.5 - Hyperlipidemia, unspecified (6) Sepsis: Status: Acute Category: Medical Code(s): A41.9 - Sepsis, unspecified organism Plan Ms. Flores is a 59-year-old female who presented to the emergency department yesterday evening with complaints of increasing shortness of breath. Initial O2 was 80% on room air. She does have a history of asthma, and hyperlipidemia. She is a former smoker, states she quit approximately 5 years ago. She does use an albuterol Hailer at home as needed. She states she has had some upper respiratory symptoms, cough, runny nose, sneezing for the past few days. She denies chest pain, abdominal pain, nausea, vomiting, diarrhea, fever. She denies any sick contacts that she is aware of. Workup in the ED revealed elevated WBC of 14, mildly elevated D-dimer of 0.77. VBG was unremarkable, CMP within normal limits, negative troponin. EKG showed sinus rhythm heart rate of 86. Chest x-ray unrevealing, no consolidations, CT per PE protocol was ordered, negative for PE but did show possible groundglass opacities. Full respiratory panel ordered was negative for any viral illness. Hospital medicine was consulted for further monitoring, patient symptoms necessitating admission due to new oxygen requirement. Hospital medicine decided admit, plan of care was as follows: #Asthma exacerbation #Pneumonia #Leukocytosis ? Patient was given Augmentin and azithromycin in the ED. Transition to doxycycline 100 mg twice daily x 5 days per pulmonology. ? Patient admitted on 4 L nasal cannula O2 saturation greater than 90%. Weaned to room air today, maintaining an oxygen saturation of 94%. ? Patient should use flutter valve/incentive spirometer to increase lung volumes. DuoNebs every 6 hours as needed. ? Start prednisone 40 mg daily x 5 days, start Advair 500 1 puff twice daily, start Claritin 10 mg daily. ? 6-minute walk test per pulmonology prior to discharge. ? WBC on admission 14.2, repeat today 18.4 with a neutrophilic shift. CMP unremarkable. ? Ordered CBC, CMP, magnesium for the a.m. #Sepsis ? Patient meets Sepsis criteria tachycardia, leukocytosis, tachypneic. Patient was given 1 L bolus in the ED, will initiate LR at 150 mL/H. ? Chest CTA concerning for pneumonia, groundglass opacities suggesting atypical infection/inflammatory pneumonitis. ? Patient receiving doxycycline 100 mg twice daily. #Hyperlipidemia ? Continue atorvastatin 40 mg at bedtime. Full code VTE?Lovenox Regular diet Ambulate as tolerated
[2025-02-16] MEDS: KETOROLAC 30MG/ML VIAL 15 MG IV (12:41)
[2025-02-16] MEDS: LACTATED RINGERS 1000ML 1,000 ML 150 ML IV (14:35)
--- NOTE | 2025-02-16 15:01 | PC.NURSE ---
Pt A&O x4. C/O soa after ambulating to the BR. Was on RA. O2 sats observed @ 91%. Pt was placed on 2L O2 NC. Pt's sats increased to 93%. RT was called for prn breathing Tx. No other concerns at tis time. Call light within reach.
[2025-02-16] MEDS: PANTOPRAZOLE 40MG TABLET 40 MG PO (20:36)
[2025-02-16] MEDS: ATORVASTATIN 40MG TABLET 40 MG PO (20:36)
[2025-02-17 02:26] VITALS: PULSE 91; PULSE 96
[2025-02-17] MEDS: IPRATROPIUM/ALBUTEROL 3 ML NEB IH ×2 (02:26→06:00)
[2025-02-17 04:00] VITALS: BP 113/65; PULSE 90; RESP 16; TEMP 36.6; O2SAT 93; BMI 28.8
[2025-02-17 06:02] VITALS: PULSE 94
[2025-02-17 06:26] LABS: Hematocrit 38.9 % (37.0-47.0); Hemoglobin 12.8 g/dL (12.2-16.2); Immature Granulocytes % 0.5 %; Mean Corpuscular HGB Conc 32.9 g/dL (31.8-35.4); Mean Corpuscular Hemoglobin 30.3 pg (27.0-31.2); Mean Corpuscular Volume 92.0 fl (81-99); Nucleated Red Blood Cells % 0 %; Platelet Count 307 K/mm3 (142-424); Red Blood Count 4.23 M/mm3 (4.20-5.40); Red Cell Distribution Width-SD 45.1 fL; White Blood Count 18.8 K/mm3 (4.8-10.8)
[2025-02-17 06:34] LABS: Albumin Level 3.8 g/dl (3.5-5.0); Chloride 107 mmol/L (98-107); Potassium 4.5 mmoL/L (3.5-5.1); Sodium 137 mmol/L (136-145)
[2025-02-17 06:37] LABS: Alanine Aminotransferase 36 U/L (12-78); Albumin/Globulin Ratio 1.6 (1.1-1.8); Alkaline Phosphatase 84 U/L (38-126); Anion Gap 8.5 mEq/L (5-15); Aspartate Amino Transferase 45 U/L (14-36); Bilirubin,Total 0.4 mg/dl (0.2-1.3); Blood Urea Nitrogen 20 mg/dl (7-17); Calcium 8.8 mg/dl (8.4-10.2); Carbon Dioxide 26 mmol/L (22.0-30.0); Creatinine Clearance Estimated 82 mL/min (50-200); Creatinine,Serum 0.80 mg/dl (0.52-1.04); Estimated Glomerular Filt Rate 74 ml/min (>60); GFR (African American) 89 ML/MIN (>60); Globulin 2.4 g/dL (1.3-3.2); Glucose 118 mg/dl (74-100); Magnesium 2.1 mg/dl (1.6-2.3); Total Protein,Serum 6.2 g/dl (6.3-8.2)
[2025-02-17 07:34] VITALS: BP 112/63; PULSE 99; RESP 21; TEMP 36.8; O2SAT 95
[2025-02-17 08:00] VITALS: O2SAT 95
[2025-02-17] MEDS: DOXYCYCLINE HYCL 100 MG TABLET PO (08:06)
[2025-02-17] MEDS: LORATADINE 10MG TABLET 10 MG PO (08:06)
--- NOTE | 2025-02-17 09:36 | P.PN_ITS ---
Subjective *Date: 02/17/25 *Time: 10:26 Interval history: No acute respiratory events overnight. Patient admits continued improvement in her respiratory symptoms. Pulmonology Exam Inpatient Vital signs and Labs for Last 24 Hours: Temp Pulse Resp BP Pulse Ox O2 Del Method O2 Flow Rate 98.3 F 99 H 21 112/63 95 Nasal Cannula 1 02/17/25 07:34 02/17/25 07:34 02/17/25 07:34 02/17/25 07:34 02/17/25 08:00 02/17/25 08:00 02/17/25 08:00 FiO2 32 02/16/25 00:21 Laboratory Results - last 24 hr 02/17/25 06:14: WBC 18.8 H, RBC 4.23, Hgb 12.8, Hct 38.9, MCV 92.0, MCH 30.3, MCHC 32.9, RDW 13.2, Plt Count 307, MPV 9.8, Neut % (Auto) 82.6 H, Lymph % (Auto) 11.8, [place] % (Auto) 5.0, Eos % (Auto) 0.0 L, Baso % (Auto) 0.1, Neut # (Auto) 15.5 H, Lymph # (Auto) 2.2, [place] # (Auto) 1.0, Eos # (Auto) 0.0, Baso # (Auto) 0.0, Sodium 137, Potassium 4.5, Chloride 107, Carbon Dioxide 26, Anion Gap 8.5, BUN 20 H D, Creatinine 0.80, Estimated Creat Clear 82, Estimated GFR 74, Est GFR ( Amer) 89, Glucose 118 H, Calcium 8.8, Magnesium 2.1, Total Bilirubin 0.4, AST 45 H, ALT 36, Alkaline Phosphatase 84, Total Protein 6.2 L, Albumin 3.8 D, Globulin 2.4, Albumin/Globulin Ratio 1.6 Temp Pulse Resp BP Pulse Ox O2 Del Method O2 Flow Rate 98.2 F 107 H 22 116/65 94 L Nasal Cannula 3 02/16/25 07:34 02/16/25 07:34 02/16/25 07:34 02/16/25 07:34 02/16/25 07:34 02/16/25 09:00 02/16/25 09:00 FiO2 32 02/16/25 00:21 Laboratory Results - last 24 hr 02/15/25 16:54: WBC 14.2 H, RBC 5.28, Hgb 16.1, Hct 47.6 H, MCV 90.2, MCH 30.5, MCHC 33.8, RDW 12.2, Plt Count 381, MPV 9.7, Neut % (Auto) 85.8 H, Lymph % (Auto) 8.2 L, [place] % (Auto) 4.1, Eos % (Auto) 1.2, Baso % (Auto) 0.5, Neut # (Auto) 12.2 H, Lymph # (Auto) 1.2, [place] # (Auto) 0.6, Eos # (Auto) 0.2, Baso # (Auto) 0.1, D-Dimer 0.77 H, Sodium 137, Potassium 4.3, Chloride 106, Carbon Dioxide 25, Anion Gap 10.3, BUN 10, Creatinine 0.80, Estimated Creat Clear 75, Estimated GFR 74, Est GFR ( Amer) 89, Glucose 122 H, Calcium 9.5, Total Bilirubin 0.4, AST 49 H, ALT 43, Alkaline Phosphatase 129 H, Troponin I < 0.01, Total Protein 8.0, Albumin 5.0, Globulin 3.0, Albumin/Globulin Ratio 1.7 02/15/25 17:04: VBG pH 7.32, VBG pCO2 47.8, VBG pO2 31.0, VBG HCO3 24.2, VBG Total CO2 25.7, VBG O2 Saturation 60.3, VBG Base Excess -1.8, VBG Lactic Acid 1.3 02/15/25 19:32: Chlamy pneumoniae PCR Not detected, Adenovirus (PCR) Not detected, B. pertussis DNA (PCR) Not detected, Coronavirus OC43 (PCR) Not detected, Coronavirus HKU1 (PCR) Not detected, Coronavirus 229E (PCR) Not detected, SARS-CoV-2 (PCR) Not detected, Coronavirus NL63 (PCR) Not detected, Human Metapneumovir PCR Not detected, Influenza A (H1) PCR Not detected, Influ A (H1N1/09) PCR Not detected, Influenza A (H3) PCR Not detected, Influenza Type A (PCR) Not detected, Influenza Type B (PCR) Not detected, M. pneumoniae (PCR) Not detected, Parainfluenza 1 (PCR) Not detected, Parainfluenza 2 (PCR) Not detected, Parainfluenza 3 (PCR) Not detected, Parainfluenza 4 (PCR) Not detected, RSV (PCR) Not detected, Entero/Rhino (PCR) Not detected 02/15/25 20:50: Troponin I < 0.01 02/15/25 23:37: Troponin I < 0.01 02/16/25 06:38: WBC 18.4 H D, RBC 4.76, Hgb 14.2 D, Hct 43.3, MCV 91.0, MCH 29.8, MCHC 32.8, RDW 12.6, Plt Count 325, MPV 9.9, Neut % (Auto) 93.1 H, Lymph % (Auto) 4.0 L, [place] % (Auto) 2.1, Eos % (Auto) 0.0 L, Baso % (Auto) 0.1, Neut # (Auto) 17.1 H, Lymph # (Auto) 0.7, [place] # (Auto) 0.4, Eos # (Auto) 0.0, Baso # (Auto) 0.0, Sodium 138, Potassium 4.0, Chloride 106, Carbon Dioxide 25, Anion Gap 11.0, BUN 12, Creatinine 0.80, Estimated Creat Clear 77, Estimated GFR 74, Est GFR ( Amer) 89, Glucose 140 H, Lactate 1.2, Calcium 8.9, Total Bilirubin 0.3, AST 46 H, ALT 39, Alkaline Phosphatase 104, Total Protein 7.0, Albumin 4.5, Globulin 2.5, Albumin/Globulin Ratio 1.8 I & O for Labs for Last 24 Hours: Intake & Output 02/14/25 02/15/25 02/16/25 02/17/25 23:59 23:59 23:59 23:59 Intake Total 200 / 200 900 / 1140 740 / 740 Output Total 500 / 500 950 / 950 0 / 0 Balance -300 / -300 -50 / 190 740 / 740 Weight 138 lb 6 oz 138 lb 5.794 oz 146 lb 12.8 oz Intake & Output 02/13/25 02/14/25 02/15/25 02/16/25 23:59 23:59 23:59 23:59 Intake Total 200 / 200 Output Total 500 / 500 0 / 0 Balance -300 / -300 0 / 0 Weight 138 lb 6 oz 138 lb 5.794 oz Microbiology Reports for the Last 24 Hours: Microbiology 02/15/25 06:50 Sputum - Expectorated Sputum Gram Stain - Final 02/15/25 06:50 Sputum - Expectorated Sputum Sputum Culture - Preliminary Constitutional: Present mild distress Head: Present normocephalic and atraumatic ENT: Present normal exam, normal oropharynx and mucous membranes moist Neck: Present normal inspection and full ROM Respiratory: Present able to speak in complete sentences; Absent prolonged expiratory phase, respiratory distress or wheezes Cardiac: Present S1/S2, Tachycardia and radial pulses present GI: Present soft and distention; Absent tenderness or guarding Rectal (female): Present deferred (female): Present deferred Skin: Present intact; Absent cyanosis or jaundice Neuro: Present alert, awake and oriented x 3 Extremities: Present normal inspection; Absent clubbing or cyanosis Psychiatric: Present normal affect and cooperative Assessment and Plan *Assessment and plan (1) Asthma exacerbation: Status: Acute Qualifiers: Asthma persistence: unspecified Asthma severity: severe Qualified Code(s): J45.901 - Unspecified asthma with (acute) exacerbation Category: Medical Code(s): J45.901 - Unspecified asthma with (acute) exacerbation (2) Pneumonia: Status: Acute Qualifiers: Laterality: bilateral Lung location: lower lobe of lung Pneumonia type: due to unspecified organism Qualified Code(s): J18.9 - Pneumonia, unspecified organism Category: Medical Code(s): J18.9 - Pneumonia, unspecified organism (3) Acute respiratory failure with hypoxia: Status: Acute Category: Medical Code(s): J96.01 - Acute respiratory failure with hypoxia Plan Ms. Flores is a 59-year-old female with reported history of asthma presented with worsening respiratory distress and pulmonary was called for further evaluation and management. Greater than [id number] smoking history last smoked 2019. Carries a historical diagnosis of asthma using albuterol [place], needing to decrease once every day at her baseline. Worsening symptoms for the last 1 week. Admits family history of asthma. Not using any oxygen supplementation at baseline Afebrile. Hemodynamically stable. Neutrophilic predominant leukocytosis upon admission worsening. Blood gas upon admission did not show any evidence of hypoxic/hypercarbic respiratory failure Comprehensive respiratory viral PCR panel negative. CTA upon admission no pulmonary embolism. Diffuse bronchial thickening noted. Faint lung base opacity left lingula left lower lobe and right lower lobe no dense consolidative changes noted. Currently receiving DuoNebs Pulmicort and IV steroids. Also received Augmentin and azithromycin. Interval update: No acute respiratory events overnight. Continue to remain on room air. Saturation improved from yesterday. Sputum culture no growth so far. Chest clear to auscultate. Tolerating Advair inhaler well. Plan: Flutter valve Recommend 6-minute walk testing prior to discharge. Continue Advair 500 inhaler 1 puff twice daily Doxycycline to complete a total of 5-day course Continue prednisone 40 mg daily to complete a total of 5-day course # Thank you for involving pulmonary in this patient care. Will follow the patient in pulmonary clinic 2 to 3 weeks postdischarge.
--- NOTE | 2025-02-17 10:37 | P.DS_ITS ---
<Statement entered by Kyrie Starr MD - 02/19/25 10:08> Personally evaluated patient and agree with the plan of care as outlined by the ASSOCIATE WE[employer] DEVELOPER. General Admission date:: 02/15/25 Discharge date: 02/17/25 HPI HPI HPI: This 59-year-old [place], coming to the emergency room with new oxygen requirement and severe asthma attack. Evaluating patient looking for anything new in her life new medicines being exposed anybody sick being exposed to other animals has not showed anything significant. Patient is noted that she has a barn full of hay sharath that she has been and also that she has been moving bags of mulch. That she began to feel bad a couple of weeks ago as she was moving the mulch is progressively gotten worse.. Question whether fungal infection related to a and mulch might be the culprit here.. Patient's only had mild asthma in the past has an inhaler that she uses infrequently but began to use it more until she actually ran out of her inhaler at home a day or 2 ago. No one else in the family has been sick she has not been around any small children. 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 After talking with the ER provider and have been seeing the treatment to done the patient is much improved at this time but still requiring oxygen. I agree that the patient need to be placed on the floor on continuous pulse ox at this time we will continue steroid add 2 types of antihistamine nondrowsy and a Benadryl at night., Consult pulmonology will try to get sputum to see if we can get anything to grow. The patient is stable at this time and able to speak in full sentences but is still has a rapid respiratory rate Hospital Course Hospital Course Hospital Course: Ms. Flores is a 59-year-old female who presented to the emergency department Sunday evening with complaints of increasing shortness of breath. Initial O2 was 80% on room air. She does have a history of asthma, and hyperlipidemia. She is a former smoker, states she quit approximately 5 years ago. She does use an albuterol inhaler at home as needed. She states she has had some upper respiratory symptoms, cough, runny nose, sneezing for the past few days. She denies chest pain, abdominal pain, nausea, vomiting, diarrhea, fever. She denies any sick contacts that she is aware of. Workup in the ED revealed elevated WBC of 14, mildly elevated D-dimer of 0.77. VBG was unremarkable, CMP within normal limits, negative troponin. EKG showed sinus rhythm heart rate of 86. Chest x-ray unrevealing, no consolidations, CT per PE protocol was ordered, negative for PE but did show possible groundglass opacities. Full respiratory panel ordered was negative for any viral illness. Hospital medicine was consulted for further monitoring, patient symptoms necessitating admission due to new oxygen requirement. Hospital medicine decided admit, plan of care was as follows: #Asthma exacerbation #Pneumonia #Leukocytosis ? Patient was given Augmentin and azithromycin in the ED. Transition to doxy cycline 100 mg twice daily x 5 days per pulmonology at discharge. ? Patient admitted on 4 L nasal cannula O2 saturation greater than 90%. Weaned to room air yesterday, maintaining an oxygen saturation of 94%. Patient had 6- minute walk test with respiratory therapy, maintained O2 saturation greater than 94% on room air during the entire test. ? Patient should use flutter valve/incentive spirometer to increase lung volumes, instruction given to patient at discharge. ? Start prednisone 40 mg daily x 5 days, start Advair 500 1 puff twice daily, start Claritin 10 mg daily-will discharge home on medications. ? Patient will also discharge home with nebulizer for shortness of breath. ? WBC on admission 14.2, repeat at discharge 18.8. Suspicion leukocytosis in the setting of steroid use. Patient should follow-up with PCP in 1 week to ensure resolution. #Sepsis ? Patient meets Sepsis criteria tachycardia, leukocytosis, tachypneic. Patient was given 1 L bolus in the ED, will initiate LR at 150 mL/H. ?Patient received 1 L sepsis bolus in the ED, followed by LR at 150 mL/hour. Patient tolerating p.o. intake without issues. Patient no longer tachypneic, states that her work of breathing has improved tremendously. ? Chest CTA concerning for pneumonia, groundglass opacities suggesting atypical infection/inflammatory pneumonitis; discharging on doxycycline 100 mg twice daily. #Hyperlipidemia ? Continue atorvastatin 40 mg at bedtime. Total time spent on discharge 34 minutes in counseling, documentation, chart review, and direct care with patient. Exam Data for Last 24 hours Vital signs and Labs for Last 24 Hours: Temp Pulse Resp BP Pulse Ox O2 Del Method O2 Flow Rate 98.3 F 99 H 21 112/63 95 Room Air 1 02/17/25 07:34 02/17/25 07:34 02/17/25 07:34 02/17/25 07:34 02/17/25 08:00 02/17/25 09:20 02/17/25 08:00 FiO2 32 02/16/25 00:21 Laboratory Results - last 24 hr 02/17/25 06:14: WBC 18.8 H, RBC 4.23, Hgb 12.8, Hct 38.9, MCV 92.0, MCH 30.3, MCHC 32.9, RDW 13.2, Plt Count 307, MPV 9.8, Neut % (Auto) 82.6 H, Lymph % (Auto) 11.8, [place] % (Auto) 5.0, Eos % (Auto) 0.0 L, Baso % (Auto) 0.1, Neut # (Auto) 15.5 H, Lymph # (Auto) 2.2, [place] # (Auto) 1.0, Eos # (Auto) 0.0, Baso # (Auto) 0.0, Sodium 137, Potassium 4.5, Chloride 107, Carbon Dioxide 26, Anion Gap 8.5, BUN 20 H D, Creatinine 0.80, Estimated Creat Clear 82, Estimated GFR 74, Est GFR ( Amer) 89, Glucose 118 H, Calcium 8.8, Magnesium 2.1, Total Bilirubin 0.4, AST 45 H, ALT 36, Alkaline Phosphatase 84, Total Protein 6.2 L, Albumin 3.8 D, Globulin 2.4, Albumin/Globulin Ratio 1.6 I & O for Last 24 hours: Intake & Output 02/14/25 02/15/25 02/16/25 02/17/25 23:59 23:59 23:59 23:59 Intake Total 200 / 200 900 / 1140 740 / 740 Output Total 500 / 500 950 / 950 0 / 0 Balance -300 / -300 -50 / 190 740 / 740 Weight 62.766 kg 62.76 kg 66.587 kg Microbiology Reports for the Last 24 Hours: Microbiology 02/15/25 06:50 Sputum - Expectorated Sputum Gram Stain - Final 02/15/25 06:50 Sputum - Expectorated Sputum Sputum Culture - Preliminary Constitutional Constitutional: no acute distress and cooperative *Routine HEENT Exam Head: Present normocephalic Eye: Present EOMI ENT: Present mucous membranes moist *Routine Neck Exam Neck: Present supple and full ROM; Absent JVD *Routine Respiratory Exam Respiratory: Present wheezes (Faint expiratory), normal respiratory effort, able to speak in complete sentences and symmetric chest movement *Routine Cardiovascular Exam Cardiovascular: Present Normal S1, Normal S2 and tachycardia; Absent murmur *Routine Abdominal Exam Abdominal: Present soft and normoactive bowel sounds; Absent tenderness or distended *Routine Extremities Exam Extremities: Present full ROM; Absent edema *Routine Skin Exam Skin: Present intact and dry; Absent rash *Routine Neurological Exam Neurological: Present alert, oriented X3 and normal speech Results Data Completed and Pending Labs on day of discharge: Labs from last 24 hours 02/17/25 06:14 WBC 18.8 H RBC 4.23 Hgb 12.8 Hct 38.9 MCV 92.0 MCH 30.3 MCHC 32.9 RDW 13.2 Plt Count 307 MPV 9.8 Neut % (Auto) 82.6 H Lymph % (Auto) 11.8 [place] % (Auto) 5.0 Eos % (Auto) 0.0 L Baso % (Auto) 0.1 Neut # (Auto) 15.5 H Lymph # (Auto) 2.2 [place] # (Auto) 1.0 Eos # (Auto) 0.0 Baso # (Auto) 0.0 Sodium 137 Potassium 4.5 Chloride 107 Carbon Dioxide 26 Anion Gap 8.5 BUN 20 H D Creatinine 0.80 Estimated Creat Clear 82 Estimated GFR 74 Est GFR ( Amer) 89 Glucose 118 H Calcium 8.8 Magnesium 2.1 Total Bilirubin 0.4 AST 45 H ALT 36 Alkaline Phosphatase 84 Total Protein 6.2 L Albumin 3.8 D Globulin 2.4 Albumin/Globulin Ratio 1.6 Preliminary micro results at discharge 02/15/25 06:50 Sputum Culture - Preliminary Sputum - Expectorated Sputum DS: Diagnosis Discharge Diagnosis (1) Asthma exacerbation: Status: Acute Code(s): J45.901 - Unspecified asthma with (acute) exacerbation Qualifiers: Asthma persistence: unspecified Asthma severity: severe Qualified Code(s): J45.901 - Unspecified asthma with (acute) exacerbation (2) Pneumonia: Status: Acute Code(s): J18.9 - Pneumonia, unspecified organism Qualifiers: Laterality: bilateral Lung location: lower lobe of lung Pneumonia type: due to unspecified organism Qualified Code(s): J18.9 - Pneumonia, unspecified organism (3) Acute respiratory failure with hypoxia: Status: Acute Code(s): J96.01 - Acute respiratory failure with hypoxia Meds Home Medications and Allergies Home Medications ?Medication ?Instructions ?Recorded ?Confirmed ?Type rosuvastatin 40 mg tablet 40 mg PO DAILY 02/15/2502/06 History albuterol sulfate 90 mcg/actuation 1 inh inhalation Q4 HP PRN 02/16/25 02/16/25 History breath activated powder inhaler shortness of breath or wheezing doxycycline hyclate 100 mg tablet 100 mg PO BID 3 days #7 tabs 02/17/25 Rx fluticasone 500 mcg-salmeterol 50 1 inh inhalation BID RT #60 ea 02/17/25 Rx mcg/dose blistr powdr for inhalation (Advair Diskus) ipratropium 0.5 mg-albuterol 3 mg 3 ml inhalation Q6HP PRN Shortness 02/17/25 Rx (2.5 mg base)/3 mL nebulization Of Breath 30 days #30 mL soln loratadine 10 mg tablet 10 mg PO DAILY 30 days #30 t abs 02/17/25 Rx prednisone 20 mg tablet 40 mg (2 x 20 mg) PO DAILY 2 days 02/17/25 Rx #4 tabs New Prescriptions to Start Prescriptions: ipratropium-albuterol Mariposa Iniguez doxycycline hyclate Mariposa Iniguez fluticasone propion-salmeterol [Advair Diskus] Mariposa Iniguez loratadine Mariposa Iniguez prednisone Mariposa Iniguez Allergies Allergy/AdvReac Type Severity Reaction Status Date / Time No Known Allergies Allergy Verified 02/23/22 16:58 Discharge Plan Disposition Patient Disposition: Home, Self-Care Condition: Fair Discharge Order Discharge Orders: Discharge Order (Routine); Ordered 02/17/25 Ordered By: Mariposa Iniguez Follow up Plan Follow up with: Eulalia Sparks APRN [Primary Care Provider, Medical] - 02/24/25 9:30 am Patricia Mobley MD [Physician, Pulmonology] - 09/05/25 10:40 am Prescriptions/Medication Reconciliation: New fluticasone propion-salmeterol [Advair Diskus] 500-50 mcg/dose Blister With Device 1 inh inhalation BIDRT Qty: 60 0RF doxycycline hyclate 100 mg Tablet 100 mg PO BID 3 Days Qty: 7 0RF prednisone 20 mg Tablet 40 mg PO DAILY 2 Days Qty: 4 0RF loratadine 10 mg Tablet 10 mg PO DAILY 30 Days Qty: 30 0RF ipratropium-albuterol 0.5 mg-3 mg(2.5 mg base)/3 mL Solution For Nebulization 3 ml inhalation Q6HP PRN (Reason: Shortness Of Breath) 30 Days Qty: 30 0RF Continued rosuvastatin 40 mg tablet 40 mg PO DAILY Patient Comments: TAKE 1 TABLET BY MOUTH ONCE A DAY albuterol sulfate 90 mcg/actuation aerosol powdr breath activated 1 inh INHALATION Q4HP PRN (Reason: shortness of breath or wheezing) Other Ambulatory Orders: Home Medical Equipment (Routine) Location: None Selected Ordered By: Mariposa Iniguez Problem Reconciliation Problems Reviewed?: Yes Patient Discharge Instructions ACTIVITY: Continue current activity DIET: continue same diet Patient Instructions: Asthma -- Adult, Atypical Pneumonia Print Language: [place] Providers Primary Care Provider: Eulalia Sparks Admit Provider: Yazan Schmitz Attending Provider: Yazan Schmitz
[2025-02-17 10:42] VITALS: BP 112/63; BP 125/74; PULSE 104; PULSE 99; RESP 18; RESP 22; O2SAT 94; O2SAT 95
--- NOTE | 2025-02-17 10:46 | PC.NURSE ---
RESP CARE NOTE: Pt performed 6 min walk test, without issue. SPO2 did not drop below 94% on room air.
--- NOTE | 2025-02-18 10:00 | SW/DCPLANNER ---
Spoke with a patient on the phone. Patient stated that she is doing good. Patient stated that she is aware of her upcoming appointments. Patient stated that she was able to brain picker her new medicine from clinic pharmacy. Patient stated that she has no concerns or questions at this time. Casi Crowder
== END 2025-02-17 14:07 | disposition home or self-care (01) | DRG 871 ==
LOC: ER 19:20 → 2ND 02-16 04:47
PROVIDERS: Nurse Practitioner Family; Admitting Provider Internal Medicine Adolescent Medicine; Emergency Provider Student in an Organized Health Care Education/Training Program; PCP Nurse Practitioner; Visit Provider Internal Medicine Adolescent Medicine
DX: A41.9 Sepsis, unspecified organism (principal); J18.9 Pneumonia, unspecified organism; J45.901 Unspecified asthma with (acute) exacerbation; E78.5 Hyperlipidemia, unspecified; D72.829 Elevated white blood cell count, unspecified; T38.0X5A Adverse effect of glucocorticoids and synthetic analogues, initial encounter; T48.6X6A Underdosing of antiasthmatics, initial encounter; Z87.891 Personal history of nicotine dependence; Z79.899 Other long term (current) drug therapy; Z91.138 Patient's unintentional underdosing of medication regimen for other reason; Z91.148 Patient's other noncompliance with medication regimen for other reason
CPT/HCPCS: 0223U; 36415; 71045; 71275; 80053; 82785; 82803; 83605; 83735; 84484; 85025; 85378; 86606; 86612; 87070; 87205; 93005; 94618; 94640; 94760; 94761; J1100; J1650; J1885; J2405; J2919; J3475; J7030; J7120; Q9967

== ENCOUNTER 2025-06-24 07:42 | Outpatient (CLI) | payer BC, SELFPAY ==
--- OUTSIDE RECORDS SUMMARY | 2025-06-24 07:44 | XMS_ITS | Continuity of Care Document ---
Author Organization [facility] Address [address] [place] [id number] Care Team Providers Care Driver Helper Name Role Phone LORIE EULALIA Primary Care Provider Unavailabl e Assessment No assessment recorded. Plan of Treatment Reminders Order Date Submit Date Provider Last Modified By Organization Details Last Modified Time Details Appointments FOLLOW UP 15 2025 10:30A Chong Sparks APRN Not available Not available Not available Lab rapid influenza virus A + B and SARS CoV + SARS CoV 2 Ag panel, [place], upper respirato ry specimen [address], [address] [place] [address], [phone], 06/11/2025 15:42:54 Referral None recorded. Procedures None recorded. Surgeries None recorded. Imaging None recorded. Medication Orders nystatin 100,000 unit/mL oral suspensio n 2024 025 [facility], [address] [place] [address], [id number], 06/11/2025 12:33:42 prednison e 20 mg tablet 2024 025 [facility], [address] [place] [address], [id number], 06/21/2025 05:01:29 cefdinir 300 mg capsule 2024 025 [facility], [address] [place] [address], [id number], 06/11/2025 12:33:41 Patient TargetsNo targets recorded. Patient InstructionsNo instructions recorded. Reason for Referral None Reported. Results Created Date Observation Date Name Description Value Unit Range Abnormal Flag Note LastModifiedBy Organization Detail LastModifiedTime 06/11/20 25 06/11/2025 rapid influ dominique virus A + B and SARS CoV + SARS CoV 2 Ag panel , [place], upper respi rator y speci men SARS-CoV2 negati ve Not Available [address], [phone], 06/11/2025 11:42:11 06/11/20 25 06/11/2025 rapid influ dominique virus A + B and SARS CoV + SARS CoV 2 Ag panel , [place], upper respi rator y speci men Flu A negati ve Not Available [address], [phone], 06/11/2025 11:42:11 06/11/20 25 06/11/2025 rapid influ dominique virus A + B and SARS CoV + SARS CoV 2 Ag panel , [place], upper respi rator y speci men Flu B negati ve Not Available [address], [phone], 06/11/2025 11:42:11 Result Notes None recorded. Problems Name Problem SNOMED Code Status Onset Date Resolution Date Notes Provider Name and Address Organization Details Recorded Time Mixed hyperlipidemia 325770547 Active 2022 Michelle perkins [employer] 4 10:27:23 Prediabetes 095621152 Active 2023 Michelle perkins [employer] 4 10:44:01 Fever 142636656 Active 2023 Michelle perkins [employer] 4 14:08:59 Fatigue 47793739 Active 2024 Michelle perkins, [employer] 5 11:39:35 Hyperlipidemia 51928355 Active 2024 Michelle perkins, [employer] 5 11:39:35 Hyperglycemia 51819054 Active 2024 Michelle perkins, [employer] 5 11:39:35 Acute cough Active 2024 Michelle perkins, [employer] 5 11:41:41 Problem Notes None recorded. Procedures Surgical History Date Name Laterality Status Provider Name and Address Organization Details Recorded Time 5 Most Recent Mammogram completed [employer]. 11/03/2024 11:38:24 4 Alveoplasty w/ extraction completed [employer]. 05/08/2024 10:48:50 4 Date of Last Pap Smear completed [employer]. 05/08/2024 10:30:13 4 tooth extraction, multiple completed [employer]. 11/13/2023 10:29:14 Gallbladder Surgery completed FAIZAN PADGETT [employer]. 08/21/2022 13:38:56 Imaging Results None recorded. Procedure Notes None recorded. Medical Equipment None Reported. Allergies No known drug allergies Medications Name Sig Start Date Stop Date Status Note LastModified by Organization Details LastModified Time amoxicilli n 500 mg capsule 05/15 completed Not Available Not Available Not Available nystatin 100,000 unit/mL oral suspension Take 5 mL 4 times a day by mouth. active Not Available Not Available No t Available doxycyclin e hyclate 100 mg capsule TAKE ONE CAPSULE BY MOUTH TWICE DAILY FOR 10 DAYS 11/04 completed Not Available Not Available Not Available ipratropiu m 0.5 mg-albuter ol 3 mg (2.5 mg base)/3 mL nebulizati on soln INHALE THE CONTENTS OF 1 VIAL VIA NEBULIZE R EVERY 6 HOURS NEEDED FOR SHORTNES S OF BREATH OR wheezing active Not Available Not Available No t Available cetirizine 10 mg tablet Take 1 tablet every day by oral route for 90 days. 2024 active Not Available Not Available Not Avai lable azithromyc in 250 mg tablet TAKE 2 TABLETS BY MOUTH ON DAY 1, THEN TAKE 1 TABLET DAILY ON DAYS 2-5 05/07 completed Not Available Not Available Not Available fluconazol e 200 mg tablet 11/12 completed Not Available Not Available Not Available prednisone 20 mg tablet Take 1 tablet 3 times a day by oral route for 3 days. 06/21 completed Not Available Not Available Not Available sulfametho xazole 800 mg-trimeth oprim 160 mg tablet Take 1 tablet every 12 hours by oral route for 7 days. 11/20 completed Not Available Not Available Not Available ondansetro n 8 mg disintegra ting tablet 06/12 completed Not Available Not Available Not Available oxycodone- acetaminop hen 5 mg-325 mg tablet as needed 01/13 completed dental Not Available Not Available Not Available hydrocodon e 7.5 mg-acetami nophen 325 mg tablet 06/12 completed Not Available Not Available Not Available promethazi ne 25 mg tablet 11/12 completed Not Available Not Available Not Available fluticason e 500 mcg-salmet charlotte 50 mcg/dose blistr powdr for inhalation INHALE 1 PUFF pobid active Not Available Not Available No t Available montelukas t 10 mg tablet TAKE 1 TABLET BY MOUTH EVERY EVENING 05/07 completed Not Available Not Available Not Available bisacodyl 5 mg tablet,del ayed release 05/08 completed Not Available Not Available Not Available polyethyle ne glycol 3350 17 gram/dose oral powder 06/12 completed Not Available Not Available Not Available methylpred nisolone 4 mg tablets in a dose pack 11/12 completed Not Available Not Available Not Available albuterol sulfate HFA 90 mcg/actuat ion aerosol inhaler INHALE 2 PUFFS BY MOUTH EVERY 4 HOURS NEEDED active Not Available Not Available No t Available cefdinir 300 mg capsule Take 1 capsule every 12 hours by mouth for 7 days. active Not Available Not Available No t Available colestipol 1 gram tablet 05/08 completed Not Available Not Available Not Available doxycyclin e hyclate 100 mg tablet TAKE ONE TABLET BY MOUTH TWICE DAILY -- FINISH ALL MEDICINE -- 02/20 completed Not Available Not Available Not Available amoxicilli n 875 mg-potassi um clavulanat e 125 mg tablet Take 1 tablet every 12 hours by oral route. 11/12 completed Not Available Not Available Not Available amoxicilli n 500 mg-potassi um clavulanat e 125 mg tablet 11/12 completed Not Available Not Available Not Available Allergy Relief (loratadin e) 10 mg tablet TAKE ONE TABLET BY MOUTH EVERY DAY 03/12 completed Not Available Not Available Not Available rosuvastat in 40 mg tablet TAKE 1 TABLET BY MOUTH ONCE A DAY active Not Available Not Available No t Available Vitals Date Recorded Body height Body mass index (BMI) Body weight Body temperature Heart rate Oxygen saturation Systolic And Diastolic Provider Name and Address Organization Details Last Updated DateTime 5 152.4 cm 33.6 kg/m2 94818.2 9 g 98.6 [degF] 80 /min 97 % 137/85 mm[Hg] Michelle Daniels [employer] 5 11:37:29 Social History Question Answer Notes LastModified by Organizat ion Details LastModified Time Tobacco Smoking Status Former Smoker Sunshine perkins [employer], [employer] 08/21/2022 13:32:27 Do You Have An Advance Directive? No [email or web address] Information not available 08/21/2022 Is Your Home Air Conditioned? Yes Information not available 08/21/2022 Do You Wear A Helmet When Biking? Yes [email or web address] Information not available 08/21/2022 Are You Blind Or Do You Have Difficulty Seeing? No Information not available 08/21/2022 What Is Your Level Of Caffeine Consumption? Moderate [email or web address] Information not available 08/21/2022 Are You A Caregiver? No Information not available 05/07/2025 In The 14 Days Before Symptom Onset, Have You Had Close Contact With A Laboratory-confi rmed COVID-19 While That Case Was Ill? No [email or web address] Information not available 08/21/2022 In The 14 Days Before Symptom Onset, Have You Had Close Contact With A Person Who Is Under Investigation For COVID-19 While That Person Was Ill? No [email or web address] Information not available 08/21/2022 Have You Been To An Area Known To Be High Risk For COVID-19? No [email or web address] Information not available 08/21/2022 Are You Deaf Or Do You Have Serious Difficulty Hearing? No Information not available 08/21/2022 What Type Of Diet Are You Following? REGULAR [email or web address] Information not available 08/21/2022 What Is The Highest Grade Or Level Of School You Have Completed Or The Highest Degree You Have Received? [id number] Information not available 05/07/2025 How Many Days Of Moderate To Strenuous Exercise, Like A Brisk Walk, Did You Do In The Last 7 Days? 2 [email or web address] Information not available 08/21/2022 Have There Been Any Changes To Your Family Or Social Situation? No [email or web address] Information not available 08/21/2022 When Did You Quit Smoking? 1-5yearssincelastc igarette [email or web address] Information not available 08/21/2022 Are There Any Guns Present In Your Home? Yes Information not available 08/21/2022 Which Of Your Hands Is Dominant? Right Information not available 08/21/2022 Do You Engage In Moderate/heavy Exercise (e.g. Brisk Walk, Jogging, Strength Training, Etc)? No Information not available 05/07/2025 What Is Your Home Situation? Other [email or web address] Information not available 08/21/2022 How Many Times In The Past Year Have You Used An Illegal Drug Or Used A Prescription Medication For Nonmedical Reasons? 0 Information not available 05/07/2025 [facility] 05/07/2025 Do You Have A Medical Power Of Compressed Gas Tester? No [email or web address] Information not available 08/21/2022 What Was The Date Of Your Most Recent Tobacco Screening? 06/11/2025 Information not available 06/11/2025 What Is Your Current Pack Years? [email or web address] Information no t available 08/21/2022 Do You Have Any Pets? Yes Information not available 08/21/2022 Do You Use Protection During Sex? No Information not available 08/21/2022 What Is Your Relationship Status? Information not available 08/21/2022 Have You Repeated Any Grades? No [email or web address] Information not available 08/21/2022 Do You Wear A Seatbelt When Driving Or As A Passenger? Yes Information not available 05/07/2025 Do You Use Your Seat Belt Or Car Seat Routinely? Yes Information not available 08/21/2022 Are You Sexually Active? Yes [email or web address] Information not available 08/21/2022 Do You Have Any Siblings? Yes [email or web address] Information not available 08/21/2022 Do You Have Smoke And Carbon Monoxide Detectors In Your Home? Yes Information not available 08/21/2022 At What Age Did You Start Smoking Tobacco? 23 [email or web address] Information not available 08/21/2022 Are You Passively Exposed To Smoke? Yes Information not available 08/21/2022 Are There Any Smokers In Your House? No Information not available 08/21/2022 How Much Tobacco Do You Smoke? No Information not available 05/07/2025 What Types Of Sporting Activities Do You Participate In? None Information not available 05/07/2025 Do You Use Sunscreen Routinely? Yes Information not available 08/21/2022 Has Tobacco Cessation Counseling Been Provided? No Information not available 05/07/2025 How Many Years Have You Smoked Tobacco? 15 [email or web address] Information not available 08/21/2022 Have You Recently Traveled Abroad? No Information not available 08/21/2022 Do You Have Difficulty Walking Or Climbing Stairs? No Information not available 08/21/2022 Are You Currently In School? No [email or web address] Information not available 08/21/2022 What Contraceptive Method Was Reported At Start Of This Visit? None Information not available 05/07/2025 Do You Feel Safe In Your Home? Yes Information not available 05/07/2025 Do You Have Any Dietary Restrictions? No Information not available 05/07/2025 What Is Your Reason For Having No Contraceptive Method At Start Of This Visit? Other Information not available 05/07/2025 Sex: Unknown Functional Status Question Answer Note LastModified by Organizat ion Details LastModified Time Do you or have you ever used smokeless tobacco? Never used smokeless tobacco Information not available 05/07/2025 Are you currently employed? No Information not available 08/21/2022 Do you have transportation difficulties? No [email or web address] Information not available 08/21/2022 Are you able to care for yourself independently? Yes Information not available 08/21/2022 Do you have difficulty dressing, bathing, grooming, or toileting? Yes [email or web address] Information not available 08/21/2022 Do you or have you ever used e-cigarettes or vape? Never used electronic cigarettes Information not available 05/07/2025 What is your exercise level? Occasional Information not available 08/21/2022 Do you use any illicit or recreational drugs? No [email or web address] Information not available 08/21/2022 Do you feel safe in your relationship? Yes Information not available 05/07/2025 Do you or have you ever used any other forms of tobacco or nicotine? Yes Information not available 05/07/2025 What is your level of alcohol consumption? None Information not available 11/20/2022 Are you able to walk independently without assistance or assistive devices? [email or web address] Information not available 08/21/2022 Do you have difficulty doing errands alone? Yes [email or web address] Information not available 08/21/2022 Mental Status Question Answer Note LastModified by Organizat ion Details LastModified Time Do you feel stressed (tense, restless, nervous, or anxious, or unable to sleep at night)? [id number] [email or web address] Information not available 08/21/2022 Do you have difficulty concentrating, remembering or making decisions? Yes Information no t available 08/21/2022 Are you or have you been involved with bullying? No [email or web address] Information not available 08/21/2022 Family History Relationship Description Onset Age of this Age Resolved Age Notes LastModified by Organization Details LastModified Time Father Diabetes mellitus [email or web address] Not available 08/21 13:38:54 Father Hypercholest erolemia [email or web address] Not available 08/21 13:38:54 Father Hypertensive disorder [email or web address] Not available 08/21 13:38:54 Father Heart disease [email or web address] Not available 08/21 13:38:54 Mother Diabetes mellitus Not available 08/21 13:38:54 Mother Hypercholest erolemia [email or web address] Not available 08/21 13:38:54 Mother Arthritis [email or web address] Not availa ble 08/21/2022 13:38:54 Medical History Condition Response Hospitalizations N ADD/ADHD N Emergency room visit since last appointm ent. N High Cholesterol Y Gynecological History Statement/Question Response Menses Monthly N HPV Vaccine Y Date of Last Pap Smear 01/14/2024 Most Recent Mammogram 08/21/2024 Age at First Child 2 Obstetrics History GPAL:G 0 P 0 0 0 0 Immunizations Vaccine Type Date Status Note Provider Nam e and Address Organization Details Recorded Time zoster recombinant 11/13/2023 completed Michelle perkins, [employer] 11/13/2023 11:53:42 zoster recombinant 01/14/2024 completed Eulalia Sparks APRN [address] [place] [address], [phone], [employer] 01/14/2024 16:28:26 COVID-19, mRNA, LNP-S, PF, 100 mcg/0.5mL dose or 50 mcg/0.25mL dose 09/02/2020 completed FAIZAN perkins [employer] 08/21/2022 13:38:05 COVID-19, mRNA, LNP-S, PF, 100 mcg/0.5mL dose or 50 mcg/0.25mL dose 09/30/2020 completed FAIZAN LORIN null, [employer] 08/21/2022 13:38:05 COVID-19, mRNA, LNP-S, PF, 100 mcg/0.5mL dose or 50 mcg/0.25mL dose 11/08/2021 completed FAIZAN LORIN null, [employer] 08/21/2022 13:38:05 COVID-19, mRNA, LNP-S, PF, 100 mcg/0.5mL dose or 50 mcg/0.25mL dose 05/26/2021 completed FAIZAN LORIN null, [employer] 08/21/2022 13:38:05 COVID-19, mRNA, LNP-S, bivalent, PF, 50 mcg/0.5 mL or 25mcg/0.25 mL dose 07/26/2022 completed iLyngoNER null, [employer] 08/21/2022 13:38:05 Hep A, adult 05/09/2018 completed iLyngoNER null, [employer] 08/21/2022 13:38:05 Influenza, split virus, quadrivalent, PF 04/15/2020 completed iLyngoNER null, [employer] 08/21/2022 13:38:05 Influenza, split virus, quadrivalent, PF 04/28/2022 completed FAIZAN LORIN null, [employer] 08/21/2022 13:38:05 Influenza, split virus, quadrivalent, PF 05/09/2018 completed FAIZAN LORIN null, [employer] 08/21/2022 13:38:05 Influenza, split virus, quadrivalent, PF 05/21/2019 completed FAIZAN LORIN null, [employer] 08/21/2022 13:38:05 Influenza, split virus, quadrivalent, PF 05/25/2016 completed FAIZAN LORIN null, [employer] 08/21/2022 13:38:05 Influenza, split virus, trivalent, PF 05/07/2025 completed Eulalia Sparks APRN [address] [place], [address], [facility] 05/07/2025 11:13:15 Past Encounters Encounter ID Performer Location Encounter Start Date Encounter Closed Date Diagnosis/Indication Diagnosis SNOMED-CT Code Diagnosis ICD10 Code Diagnosis IMO Codes Diagnosis Note [id number] Eulalia Sparks [address] [phone] 06/11/2025 11:20:47 06/11/2025 13:01:51 Acute cough 5159845476 97370508 R05.0 3291003416 Acute bronchitis 3160790 2 J20.9 46133023 Candidiasis of mouth 797 93572 B37.0 360890 Body mass index 30+ - obesity 613699334 Z68.33 881750 Health Concerns Section Related Observation LastModified by Organization Detai ls LastModified Time None Recorded Concern Status LastModified by Organization Details LastModified Time None Recorded Payers Encounter Date Sequence Insurance Name Policy Number Policy Briones Covered Member ID Briones Member ID Guarantor Name 06/11/2025 1 [employer] [id number] Alfie Flores [id number] Val Mark Notes Date Note Type Note Provider Name and Address Organization Details Recorded Time 06/11/2025 text/html pt here today with c/o cough and congestion x3 days. states that she was supposed to have ct chest and PFT tomorrow but had to reschedule. rapid flu and strep neg. on exam, ears WNL, mouth covered in yeast, lungs with ex wheeze. i will order abx, steroids and nystatin. advised pt to make sure she is cleaning dentures daily and avoid wearing them if possible until yeast is gone. pt voiced understanding. Eulalia Sparks APRN [address] [place], [address], [facility] [employer] 06/11/2025 12:41:31 OBGyn Episode No OBEpisode recorded.
--- OUTSIDE RECORDS SUMMARY | 2025-06-24 07:44 | XMS_ITS | Continuity of Care Document ---
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 Plan of Treatment Reminders Order Date Submit Date Provider Last Modified By Organization Details Last Modified Time Details Appointments FOLLOW UP 15 2025 10:30A M Cyrus Sparks APRN Not available Not available Not available Lab lipid panel, serum 2024 025 JORGE ALBERTO [facility]), [address] [place], [address], 05/08/2025 09:08:37 CBC w/ auto diff 2024 025 JORGE ALBERTO [facility]), [address] [place], [address], 05/08/2025 09:08:35 CMP, serum or plasma 2024 025 JORGE ALBERTO [facility]), [address] [place], [address], 05/08/2025 09:08:36 TSH + free T4, serum 2024 025 Social 2 Step [facility] ([facility]), [address] [place], [address], 05/08/2025 09:08:34 HbA1c (hemoglob in A1c), blood 10/2024 JORGE ALBERTO [facility] ([facility]), [address] [facility], [place], [address], 05/08/2025 09:08:38 vitamin D, 25-hydrox y, total, serum 2024 RESTON [facility] ([facility]), [address] [facility], [place], [address], 05/08/2025 09:08:38 cobalamin and folate panel, serum 2024 [facility] [address] [facility], [place], [address], 05/08/2025 09:08:37 Referral None recorded. Procedures None recorded. Surgeries None recorded. Imaging None recorded. Medication Orders cetirizin e 10 mg tablet 2024 [facility], [address] [place] [address], [id number], 05/07/2025 11:25:33 Crestor 40 mg tablet 2024 [facility], [address] [place] [address], [id number], 05/07/2025 11:25:34 albuterol sulfate HFA 90 mcg/actua tion aerosol inhaler 2024 [facility], [address] [place] [address], [id number], 05/21/2025 12:04:17 fluticaso ne 500 mcg-salme terol 50 mcg/dose blistr powdr for inhalatio n 2024 [facility], [address] [place] [address], [id number], 05/21/2025 12:04:16 Patient TargetsNo targets recorded. Patient InstructionsNo instructions recorded. Reason for Referral None Reported. Results Created Date Observation Date Name Description Value Unit Range Abnormal Flag Note LastModifiedBy Organization Detail LastModifiedTime 05/07/2005/08/2025 TSH+F REE T4 TSH 1.510 uIU/m L 0.450- 4.500 normal Not Available [facility] ([facility]) [address] [place], [address], 05/08/2025 09:08:34 05/07/2005/08/2025 TSH+F REE T4 T4,free(dire ct) 1.24 NG/dL 0.82-1 .77 normal Not Available [facility] ([facility]) [address] [place], [address], 05/08/2025 09:08:34 05/07/2005/08/2025 CBC WITH DIFFE RENTI AL/PL ATELE T WBC 5.7 x10e3 /uL 3.4-10 .8 normal Not Available [facility] ([facility]) [address] [place], [address], 05/08/2025 09:08:35 05/07/2005/08/2025 CBC WITH DIFFE RENTI AL/PL ATELE T RBC 4.96 x10e6 /uL 3.77-5 .28 normal Not Available [facility] ([facility]) [address] [place], [address], 05/08/2025 09:08:35 05/07/2005/08/2025 CBC WITH DIFFE RENTI AL/PL ATELE T hemoglobin 15.0 g/dL 11.1-1 5.9 normal Not Available [facility] ([facility]) [address] [place], [address], 05/08/2025 09:08:35 05/07/20 25 05/08/2025 CBC WITH DIFFE RENTI AL/PL ATELE T hematocrit 47.2 % 34.0-4 6.6 above high normal Not Available [facility] ([facility]) [address] [facility], [place], [address], 05/08/2025 09:08:35 05/07/2005/08/2025 CBC WITH DIFFE RENTI AL/PL ATELE T MCV 95 fL 79-97 normal Not Available [facility] ([facility]) [address] [facility], [place], [address], 05/08/2025 09:08:35 05/07/2005/08/2025 CBC WITH DIFFE RENTI AL/PL ATELE T MCH 30.2 pg 26.6-3 3.0 normal Not Available [facility] ([facility]) [address] [facility], [place], [address], 05/08/2025 09:08:35 05/07/2005/08/2025 CBC WITH DIFFE RENTI AL/PL ATELE T MCHC 31.8 g/dL 31.5-3 5.7 normal Not Available [facility] ([facility]) [address] [facility], [place], [address], 05/08/2025 09:08:35 05/07/2005/08/2025 CBC WITH DIFFE RENTI AL/PL ATELE T RDW 12.9 % 11.7-1 5.4 Not Available [facility] ([facility]) [address] [facility], [place], [address], 05/08/2025 09:08:35 05/07/2005/08/2025 CBC WITH DIFFE RENTI AL/PL ATELE T platelets 372 x10e3 /uL 150-45 0 normal Not Available [facility] ([facility]) [address] [facility], [place], [address], 05/08/2025 09:08:35 05/07/20 25 05/08/2025 CBC WITH DIFFE RENTI AL/PL ATELE T neutrophils 59 % not estab. normal Not Available [facility] ([facility]) [address] [facility], [place], [address], 05/08/2025 09:08:35 05/07/2005/08/2025 CBC WITH DIFFE RENTI AL/PL ATELE T lymphs 33 % not estab. normal Not Available [facility] ([facility]) [address] [facility], [place], [address], 05/08/2025 09:08:35 05/07/2005/08/2025 CBC WITH DIFFE RENTI AL/PL ATELE T monocytes 5 % not estab. normal Not Available [facility] ([facility]) [address] [facility], [place], [address], 05/08/2025 09:08:35 05/07/2005/08/2025 CBC WITH DIFFE RENTI AL/PL ATELE T eos 2 % not estab. normal Not Available [facility] ([facility]) [address] [facility], [place], [address], 05/08/2025 09:08:35 05/07/2005/08/2025 CBC WITH DIFFE RENTI AL/PL ATELE T basos 1 % not estab. normal Not Available [facility] ([facility]) [address] [facility], [place], [address], 05/08/2025 09:08:35 05/07/2005/08/2025 CBC WITH DIFFE RENTI AL/PL ATELE T immature cells BLAST HOLE DRILLER Not Available [facility] ([facility]) [address] [place], [address], 05/08/2025 09:08:35 05/07/2005/08/2025 CBC WITH DIFFE RENTI AL/PL ATELE T neutrophils (absolute) 3.4 x10e3 /uL 1.4-7. 0 normal Not Available [facility] ([facility]) [address] [place], [address], 05/08/2025 09:08:35 05/07/20 25 05/08/2025 CBC WITH DIFFE RENTI AL/PL ATELE T lymphs (absolute) 1.9 x10e3 /uL 0.7-3. 1 normal Not Available [facility] ([facility]) [address] [facility], [place], [address], 05/08/2025 09:08:35 05/07/20 25 05/08/2025 CBC WITH DIFFE RENTI AL/PL ATELE T monocytes(ab solute) 0.3 x10e3 /uL 0.1-0. 9 normal Not Available [facility] ([facility]) [address] [facility], [place], [address], 05/08/2025 09:08:35 05/07/20 25 05/08/2025 CBC WITH DIFFE RENTI AL/PL ATELE T eos (absolute) 0.1 x10e3 /uL 0.0-0. 4 normal Not Available [facility] ([facility]) [address] [facility], [place], [address], 05/08/2025 09:08:35 05/07/20 25 05/08/2025 CBC WITH DIFFE RENTI AL/PL ATELE T baso (absolute) 0.0 x10e3 /uL 0.0-0. 2 normal Not Available [facility] ([facility]) [address] [facility], [place], [address], 05/08/2025 09:08:35 05/07/2005/08/2025 CBC WITH DIFFE RENTI AL/PL ATELE T immature granulocytes 0 % not estab. Not Available [facility] ([facility]) [address] [facility], [place], [address], 05/08/2025 09:08:35 05/07/20 25 05/08/2025 CBC WITH DIFFE RENTI AL/PL ATELE T immature grans (abs) 0.0 x10e3 /uL 0.0-0. 1 Not Available [facility] ([facility]) [address], [place], [address], 05/08/2025 09:08:35 05/07/2005/08/2025 CBC WITH DIFFE RENTI AL/PL ATELE T NRBC BLAST HOLE DRILLER Not Available [facility] ([facility]) [address], [place], [address], 05/08/2025 09:08:35 05/07/2005/08/2025 CBC WITH DIFFE RENTI AL/PL ATELE T hematology comments: BLAST HOLE DRILLER Not Available [facility] ([facility]) [address], [place], [address], 05/08/2025 09:08:35 05/07/2005/08/2025 COMP. METAB OLIC PANEL (14) glucose 93 mg/dL 70-99 normal Not Available [facility] ([facility]) [address], [place], [address], 05/08/2025 09:08:36 05/07/2005/08/2025 COMP. METAB OLIC PANEL (14) BUN 11 mg/dL 6-24 normal Not Available [facility] ([facility]) [address], [place], [address], 05/08/2025 09:08:36 05/07/2005/08/2025 COMP. METAB OLIC PANEL (14) creatinine 0.86 mg/dL 0.57-1 .00 normal Not Available [facility] ([facility]) [address], [place], [address], 05/08/2025 09:08:36 05/07/20 25 05/08/2025 COMP. METAB OLIC PANEL (14) eGFR 79 mL/mi n/1.7 3 >59 normal Not Available [facility] ([facility]) [address], [place], [address], 05/08/2025 09:08:36 05/07/20 25 05/08/2025 COMP. METAB OLIC PANEL (14) BUN/creatini ne ratio 13 9-23 normal Not Available [facility] ([facility]) [address] [facility] [place], [address], 05/08/2025 09:08:36 05/07/20 25 05/08/2025 COMP. METAB OLIC PANEL (14) sodium 140 mmol/ L 134-14 4 normal Not Available [facility] ([facility]) [address] [facility], [place], [address], 05/08/2025 09:08:36 05/07/2005/08/2025 COMP. METAB OLIC PANEL (14) potassium 4.7 mmol/ L 3.5-5. 2 normal Not Available [facility] ([facility]) [address] [facility], [place], [address], 05/08/2025 09:08:36 05/07/20 25 05/08/2025 COMP. METAB OLIC PANEL (14) chloride 104 mmol/ L 96-106 normal Not Available [facility] ([facility]) [address] [facility] [place], [address], 05/08/2025 09:08:36 05/07/20 25 05/08/2025 COMP. METAB OLIC PANEL (14) carbon dioxide, total 21 mmol/ L 20-29 normal Not Available [facility] ([facility]) [address] [facility], [place], [address], 05/08/2025 09:08:36 05/07/20 25 05/08/2025 COMP. METAB OLIC PANEL (14) calcium 9.7 mg/dL 8.7-10 .2 normal Not Available [facility] ([facility]) [address] [facility] [place], [address], 05/08/2025 09:08:36 05/07/20 25 05/08/2025 COMP. METAB OLIC PANEL (14) protein, total 7.1 g/dL 6.0-8. 5 normal Not Available [facility] ([facility]) [address] [facility] [place], [address], 05/08/2025 09:08:36 05/07/20 25 05/08/2025 COMP. METAB OLIC PANEL (14) albumin 5.0 g/dL 3.8-4. 9 above high normal Not Available [facility] ([facility]) [address] [facility] [place], [address], 05/08/2025 09:08:36 05/07/20 25 05/08/2025 COMP. METAB OLIC PANEL (14) globulin, total 2.1 g/dL 1.5-4. 5 Not Available [facility] ([facility]) [address] [facility] [place], [address], 05/08/2025 09:08:36 05/07/20 25 05/08/2025 COMP. METAB OLIC PANEL (14) bilirubin, total 0.5 mg/dL 0.0-1. 2 normal Not Available [facility] ([facility]) [address] [facility] [place], [address], 05/08/2025 09:08:36 05/07/20 25 05/08/2025 COMP. METAB OLIC PANEL (14) alkaline phosphatase 84 IU/L 49-135 normal Not Available [facility] ([facility]) [address] [facility] [place], [address], 05/08/2025 09:08:36 05/07/20 25 05/08/2025 COMP. METAB OLIC PANEL (14) AST (SGOT) 27 IU/L 0-40 normal Not Available [facility] ([facility]) [address] [facility] [place], [address], 05/08/2025 09:08:36 05/07/20 25 05/08/2025 COMP. METAB OLIC PANEL (14) ALT (SGPT) 30 IU/L 0-32 normal Not Available [facility] ([facility]) [address] [facility], [place], [address], 05/08/2025 09:08:36 05/07/2005/08/2025 LIPID PANEL cholesterol, total 165 mg/dL 100-19 9 normal Not Available [facility] ([facility]) [address] [facility] [place], [address], 05/08/2025 09:08:36 05/07/2005/08/2025 LIPID PANEL triglyceride s 77 mg/dL 0-149 normal Not Available [facility] ([facility]) [address] [facility] [place], [address], 05/08/2025 09:08:36 05/07/2005/08/2025 LIPID PANEL HDL cholesterol 92 mg/dL >39 normal Not Available [facility] ([facility]) [address] [facility], [place], [address], 05/08/2025 09:08:36 05/07/2005/08/2025 LIPID PANEL VLDL cholesterol memo 14 mg/dL 5-40 Not Available [facility] ([facility]) [address] [facility], [place], [address], 05/08/2025 09:08:36 05/07/2005/08/2025 LIPID PANEL LDL chol calc ([facility]) 59 mg/dL 0-99 Not Available [facility] ([facility]) [address] [facility], [place], [address], 05/08/2025 09:08:36 05/07/2005/08/2025 LIPID PANEL LDL calc comment: BLAST HOLE DRILLER Not Available [facility] ([facility]) [address] [facility], [place], [address], 05/08/2025 09:08:36 05/07/20 25 05/08/2025 VITAM IN B12 AND FOLAT E vitamin B12 732 pg/mL 232-12 45 normal Not Available [facility] ([facility]) [address] [facility], [place], [address], 05/08/2025 09:08:37 05/07/2005/08/2025 VITAM IN B12 AND FOLAT E folate (folic acid), serum 12.0 NG/mL >3.0 normal A serum folat e kenji ntrat ion of less than 3.1 ng/mL is consi dered to repre sent clini memo defic iency . Not Available [facility] ([facility]) [address] [facility], [place], [address], 05/08/2025 09:08:37 05/07/2005/08/2025 HEMOG LOBIN A1C hemoglobin A1C 5.6 % 4.8-5. 6 normal Predi abete s: 5.7 - 6.4 Diabe sinan: >6.4 Glyce vivien contr ol for adult s with diabe sinan: <7.0 Not Available [facility] ([facility]) [address] [facility], [place], [address], 05/08/2025 09:08:38 05/07/2005/08/2025 VITAM IN D, 25-HY DROXY vitamin D, 25-hydroxy 40.4 NG/mL 30.0-1 00.0 Vitam in D defic iency has been defin ed by the Insti tute of Medic ine and an Endoc rine Socie ty pract ice guide line as a level of serum 25-OH vitam in D less than 20 ng/mL (1,2) . The Endoc rine Socie ty [facility] e vitam in D insuf ficie ncy as a level betwe en 21 and 29 ng/mL (2). 1. IOM (Inst itute of Medic ine). 2009. Dieta ry refer ence intak es for calci um and D. [place]: The [facility] Press . 2. Robert ayala MF, Candelaria pino [place], Livan off-F errar i CARRANZA, et al. Evalu ation , treat ment, and preve ntion of vitam in D defic iency : an Endoc rine Socie ty clini memo pract ice guide line. JCEM. 2010; 96(7) :1911 -30. Not Available [facility] ([facility]) [address] [facility], [place], [address], 05/08/2025 09:08:38 Result Notes None recorded. Problems Name Problem SNOMED Code Status Onset Date Resolution Date Notes Provider Name and Address Organization Details Recorded Time Mixed hyperlipidemia 778581469 Active 2022 [employer], [employer] 10:27:23 Prediabetes 196397596 Active 2023 Michelle Ferry [employer], [employer] 10:44:01 Fever 782389561 Active 2023 Micehlle [place] [employer], [employer] 14:08:59 Fatigue 94707565 Active 2024 [employer], [employer] 5 11:39:35 Hyperlipidemia 12952139 Active 2024 Michelle Jolly [employer], [employer] 5 11:39:35 Hyperglycemia 52794789 Active 2024 Michelle [employer] [employer], [employer] 5 11:39:35 Acute cough Active 2024 Michelle [place] [employer], [employer] 5 11:41:41 Problem Notes None recorded. Procedures Surgical History Date Name Laterality Status Provider Name and Address Organization Details Recorded Time 5 Most Recent Mammogram completed [employer] 11/03/2024 11:38:24 4 Alveoplasty w/ extraction completed [employer] 05/08/2024 10:48:50 4 Date of Last Pap Smear completed [employer], [employer]. 05/08/2024 10:30:13 4 tooth extraction, multiple completed Michelle [employer]erry [employer], [employer]. 11/13/2023 10:29:14 Gallbladder Surgery completed FAIZAN PADGETT [employer], [employer]. 08/21/2022 13:38:56 Imaging Results None recorded. Procedure [...] height Body mass index (BMI) Body weight Heart rate Oxygen saturation Systolic And Diastolic Provider Name and Address Organization Details Last Updated DateTime 10/30/202 5 152.4 cm 33.9 kg/m2 36342.6 3 g 68 /min 98 % 133/78 mm[Hg] Michelle Daniels [employer] 10:46:44 Social History Question Answer Notes LastModified by Organizat ion Details LastModified Time Tobacco Smoking Status Former Smoker Sunshine perkins [employer] 08/21/2022 13:32:27 Do You Have An Advance Directive? No [email or web address] Information not available 08/21/2022 Is Your Home Air Conditioned? Yes Information not available 08/21/2022 Do You Wear A Helmet When Biking? Yes Information not available 08/21/2022 Are You Blind Or Do You Have Difficulty Seeing? No Information not available 08/21/2022 What Is Your Level Of Caffeine Consumption? Moderate [email or web address] Information not available 08/21/2022 Are You A Caregiver? No Information not available 05/07/2025 In The 14 Days Before Symptom Onset, Have You Had Close Contact With A Laboratory-confi rmed COVID-19 While That Case Was Ill? No [email or web address] Information not available 08/21/2022 In The 14 Days Before Symptom Onset, Have You Had Close Contact With A Person Who Is Under Investigation For COVID-19 While That Person Was Ill? No [email or web address] Information not available 08/21/2022 Have You Been To An Area Known To Be High Risk For COVID-19? No [email or web address] Information not available 08/21/2022 Are You Deaf Or Do You Have Serious Difficulty Hearing? No Information not available 08/21/2022 What Type Of Diet Are You Following? REGULAR [email or web address] Information not available 08/21/2022 What Is The Highest Grade Or Level Of School You Have Completed Or The Highest Degree You Have Received? [id number] Information not available 05/07/2025 How Many Days Of Moderate To Strenuous Exercise, Like A Brisk Walk, Did You Do In The Last 7 Days? 2 Information not available 08/21/2022 Have There Been Any Changes To Your Family Or Social Situation? No [email or web address] Information not available 08/21/2022 When Did You Quit Smoking? 1-5yearssincelastc igarette [email or web address] Information not available 08/21/2022 Are There Any Guns Present In Your Home? Yes [email or web address] Information not available 08/21/2022 Which Of Your Hands Is Dominant? Right Information not available 08/21/2022 Do You Engage In Moderate/heavy Exercise (e.g. Brisk Walk, Jogging, Strength Training, Etc)? No Information not available 05/07/2025 What Is Your Home Situation? Other [email or web address] Information not available 08/21/2022 How Many Times In The Past Year Have You Used An Illegal Drug Or Used A Prescription Medication For Nonmedical Reasons? 0 Information not available 05/07/2025 Where [facility] You Live? [facility] Information not available 05/07/2025 Do You Have A Medical Power Of Biopsychologist? No [email or web address] Information not available 08/21/2022 What Was The Date Of Your Most Recent Tobacco Screening? 06/11/2025 Information not available 06/11/2025 What Is Your Current Pack Years? 30ormorepackyears [email or web address] Information no t available 08/21/2022 Do You Have Any Pets? Yes Information not available 08/21/2022 Do You Use Protection During Sex? No [email or web address] Information not available 08/21/2022 What Is Your Relationship Status? Information not available 08/21/2022 Have You Repeated Any Grades? No [email or web address] Information not available 08/21/2022 Do You Wear A Seatbelt When Driving Or As A Passenger? Yes Information not available 05/07/2025 Do You Use Your Seat Belt Or Car Seat Routinely? Yes Information not available 08/21/2022 Are You Sexually Active? Yes [email or web address] Information not available 08/21/2022 Do You Have Any Siblings? Yes [email or web address] Information not available 08/21/2022 Do You Have Smoke And Carbon Monoxide Detectors In Your Home? Yes Information not available 08/21/2022 At What Age Did You Start Smoking Tobacco? 23 [email or web address] Information not available 08/21/2022 Are You Passively [...] Many Years Have You Smoked Tobacco? 15 [email or web address] Information not available 08/21/2022 Have You Recently Traveled Abroad? No [email or web address] Information not available 08/21/2022 Do You Have Difficulty Walking Or Climbing Stairs? No Information not available 08/21/2022 Are You Currently In School? No [email or web address] Information not available 08/21/2022 What Contraceptive Method [...] 08/21/2022 Do you have transportation difficulties? No [email or web address] Information not available 08/21/2022 Are you able to care for yourself independently? Yes Information not available 08/21/2022 Do you have difficulty dressing, bathing, grooming, or toileting? Yes [email or web address] Information not available 08/21/2022 Do you or have you ever used e-cigarettes or vape? Never used electronic cigarettes Information not available 05/07/2025 What is your exercise level? Occasional [email or web address] Information not available 08/21/2022 Do you use any illicit or recreational drugs? No [email or web address] Information not available 08/21/2022 Do you feel safe in your relationship? Yes Information not available 05/07/2025 Do you or have you ever used any other forms of tobacco or nicotine? Yes Information not available 05/07/2025 What is your level of alcohol consumption? None Information not available 11/20/2022 Are you able to walk independently without assistance or assistive devices? YESWOREST [email or web address] Information not available 08/21/2022 Do you have difficulty doing errands alone? Yes [email or web address] Information not available 08/21/2022 Mental Status Question Answer Note LastModified by Organizat ion Details LastModified Time Do you feel stressed (tense, restless, nervous, or anxious, or unable to sleep at night)? [id number] Information not available 08/21/2022 Do you have difficulty concentrating, remembering or making decisions? Yes [email or web address] Information no t available 08/21/2022 Are you or have you been involved with bullying? No [email or web address] Information not available 08/21/2022 Family History Relationship Description Onset Age of this Age Resolved Age Notes LastModified by Organization Details LastModified Time Father Diabetes mellitus [email or web address] Not available 08/21 13:38:54 Father Hypercholest erolemia [email or web address] Not available 08/21 13:38:54 Father Hypertensive disorder [email or web address] Not available 08/21 13:38:54 Father Heart disease [email or web address] Not available 08/21 13:38:54 Mother Diabetes mellitus [email or web address] Not available 08/21 13:38:54 Mother Hypercholest erolemia [email or web address] Not available 08/21 13:38:54 Mother Arthritis [email or web address] Not availa ble 08/21/2022 13:38:54 Medical History [...] Time zoster recombinant 11/13/2023 completed Michelle perkins, [employer] 11/13/2023 11:53:42 zoster recombinant 01/14/2024 completed Eulalia Sparks, [employer] [address] [place] [address], [id number], [employer] 01/14/2024 16:28:26 COVID-19, mRNA, LNP-S, PF, 100 mcg/0.5mL dose or 50 mcg/0.25mL dose 09/02/2020 completed FAIZAN perkins, [employer] 08/21/2022 13:38:05 COVID-19, mRNA, LNP-S, PF, 100 mcg/0.5mL dose or 50 mcg/0.25mL dose 09/30/2020 completed FAIZAN perkins, [employer] 08/21/2022 13:38:05 COVID-19, mRNA, LNP-S, PF, 100 mcg/0.5mL dose or 50 mcg/0.25mL dose 11/08/2021 completed FAIZAN perkins, [employer] 08/21/2022 13:38:05 COVID-19, mRNA, LNP-S, PF, 100 mcg/0.5mL dose or 50 mcg/0.25mL dose 05/26/2021 completed FAIZAN perkins, [employer] 08/21/2022 13:38:05 COVID-19, mRNA, LNP-S, bivalent, PF, 50 mcg/0.5 mL or 25mcg/0.25 mL dose 07/26/2022 completed FAIZAN perkins, [employer] 08/21/2022 13:38:05 Hep A, adult 05/09/2018 completed FAIZAN PADGETT null, [employer] 08/21/2022 13:38:05 Influenza, split virus, quadrivalent, PF 04/15/2020 completed FAIZAN PADGETT null, [employer] 08/21/2022 13:38:05 Influenza, split virus, quadrivalent, PF 04/28/2022 completed FAIZAN PADGETT null, [employer] 08/21/2022 13:38:05 Influenza, split virus, quadrivalent, PF 05/09/2018 completed FAIZAN PADGETT null, [employer] 08/21/2022 13:38:05 Influenza, split virus, quadrivalent, PF 05/21/2019 completed FAIZAN PADGETT null, [employer] 08/21/2022 13:38:05 Influenza, split virus, quadrivalent, PF 05/25/2016 completed FAIZAN perkins, [employer] 08/21/2022 13:38:05 Influenza, split virus, trivalent, PF 05/07/2025 completed Eulalia Sparks APRN [address] [place] [address], [phone], [employer] 05/07/2025 11:13:15 Past Encounters Encounter ID Performer Location Encounter Start Date Encounter Closed Date Diagnosis/Indication Diagnosis SNOMED-CT Code Diagnosis ICD10 Code Diagnosis IMO Codes Diagnosis Note [id number] Eulalia Sparks APRN [address] [phone] 05/07/2025 10:20:51 05/07/2025 11:06:41 Requires influenza virus vaccination 499871450 Z23 8288125 Fatigue 39235165 R53.83 1975249 Mixed hyperlipidemia 267 672445 E78.2 38436 Hyperglycemia 21326463 R 73.9 95598 Vitamin D deficiency 347 78318 E55.9 97798 Cobalamin deficiency 190 888160 E53.8 78753 Mild inter mittent asthma 168550728 J45.20 Allergic rhinitis 020047 04 J30.9 Hyperlipidemia 75354213 E78.5 Body mass index 30+ - obesity 567586900 Z68.33 175161 Health Concerns Section Related Observation LastModified by Organization Detai ls LastModified Time None Recorded Concern Status LastModified by Organization Details LastModified Time None Recorded Payers Encounter Date Sequence Insurance Name Policy Number Policy Briones Covered Member ID Briones Member ID Guarantor Name 05/07/2025 1 [id number] [id number] Alfie Flores [id number] Val Flores Notes Date Note Type Note Provider Name and Address Organization Details Recorded Time 05/07/2025 text/html pt here today for medication refills. pt states shes doing well on current medication regime and has no new complaints today. pt states that she has another lung scan next month and sees pulm in jun. states that she has called mult times to have her inhaler refilled and to tell them that the singulair caused her itching and no one ever calls her back. pt is still taking the zyrtec. i have searched and the only other allergy meds that i am educated on are all in the same class. pt will need to talk with pul about that. i can refill the inhaler for her until she sees them in jun. Eulalia Sparks APRN [address] [facility], [place], [phone], [facility] 05/07/2025 12:32:13 OBGyn Episode No OBEpisode recorded.
--- OUTSIDE RECORDS SUMMARY | 2025-06-24 07:44 | XMS_ITS | Data Portability ---
Author Organization [place]I DMITRI Garcia [facility]OS[facility] Address [address] [facility] [address] [place] [address] Assessment Encounter Date Assessment Date Assessment LastModified by Organization Details LastModified Time 11/08/2016 11/08/2016 Pap smear pending Discussed SBEs and importance of annual mammograms Discussed menopause DIscussed still needs BC method until menopausal - voiced understanding Declines method today Not available 11/08/2016 10:16:46 Plan of Treatment Reminders Order Date Submit Date Provider Last Modified By Organization Details Last Modified Time Details Appointments None recorded. Lab cytology, vaginal/cer vical 2018 019 [facility], [address] [place] [address], [phone], 9 16:22:48 HPV DNA, high-risk 2018 019 [facility], [address] [place] [address], [address], 9 14:46:46 FSH (follicle-s timulating hormone), serum 2018 019 [email or web address] 2 [facility], [address] [place] [address], [address], 9 11:30:27 estradiol, serum 2018 019 2 [facility], [address] [place] [address], [address], 9 11:30:27 lh (luteinizin g hormone), serum 2018 019 [email or web address] 2 [facility], [address] [place] [address], [address], 9 11:30:27 T4, free, serum 2018 019 2 [facility], [address] [place] [address], [address], 9 11:30:28 CBC w/ auto diff 2018 019 2 [facility], [address] [place] [address], [id number], 9 11:30:28 CMP, serum or plasma 2018 019 2 [facility], [address] [place] [address], [address], 9 11:30:28 lipid panel, serum 2018 019 [email or web address] 2 [facility], [address] [place] [address], [address], 9 11:30:28 cytology, vaginal/cer vical 2017 018 [email or web address] [facility], [address] [place] [address], [address], 8 16:16:42 HPV DNA, high-risk 2017 018 [facility], [address] [place] [address], [address], 8 14:11:10 estradiol, serum 2017 018 [facility], [address] [place] [address], [address], 8 08:58:11 FSH (follicle-s timulating hormone), serum 2017 018 [facility], [address] [place] [address], [address], 8 08:58:11 lh (luteinizin g hormone), serum 2017 018 [facility], [address] [place] [address], [address], 8 08:58:11 glycohemogl obin, total, blood 2017 018 [facility], [address] [place] [address], [address], 8 08:58:11 general health panel [address] [facility], [address] [place] [address], [address], 8 16:16:42 T4, free, serum [address] [facility], [address] [place] [address], [address], 8 16:16:42 lipid panel, serum 2017 018 [facility], [address] [place] [address], [address], 8 08:58:11 cytology, vaginal/cer vical [address] [facility], [address] [place] [address], [address], 7 16:53:37 HPV DNA, high-risk [address] [facility], [address] [place] [address], [address], 7 11:11:51 Referral None recorded. Procedures None recorded. Surgeries None recorded. Imaging US, transvagina l 2018 019 [email or web address] [facility], [address] [place] [address] , [place], [address], 9 14:13:58 MAMMO, diagnostic, tomosynthes is, bilateral, w/ CAD 2018 019 [facility], [address] [place] [address] , [place], [address], 9 09:41:37 MAMMO, screening, tomosynthes is, bilateral, w/ CAD 2017 018 [facility], [address] [place] [address] , [place], [address], 8 15:23:05 MAMMO, screening, bilateral 2016 017 [email or web address] [email or web address] [facility], [address] [place] [address] , [place], [address], 7 10:26:58 Medication Orders None recorded. Patient TargetsNo targets recorded. Patient Instructions Encounter Date Encounter Id Patient Instructions Last Modified By Organization Details Last Modified Time 11/08/2016 [id number] Total time 20min , >50% counseling Not available 11/08/2016 10:13:34 11/09/2017 [id number] learning about cervical cancer screening Not available 11/09/2017 10:52:33 Spent 15 total minutes with the patient today in counseling regarding information documented in my assessment and plan above. The time represents more than 50% of the encounter. Not available 11/09/2017 10:37:21 11/25/2018 [id number] Spent 15 total minutes with the patient today. Greater than 50% of this time was spent counseling/coordi nation of care as documented in my assessment and plan above. Not available 11/25/2018 10:27:42 Reason for Referral None Reported. Results Created Date Observation Date Name Description Value Unit Range Abnormal Flag Note LastModifiedBy Organization Detail LastModifiedTime 11/09/19 17 11/16/2016 HPV DNA, high- risk high risk HPV Not Detect ed not detect ed normal This test was perfo rmed using the APTIM A HPV Assay ([employer] . This assay detec ts E6/E7 viral messe nger RNA (mRNA ) from 14 high- risk HPV types (16,1 8,31, 33,35 ,39,4 5,51, 52,56 ,58,5 9,66, 68). TEST PERFO RMED AT: [facility] [address] [place] [address] TRISTAN Fernandez MD Not Available [facility] [address] [place] [address], [place], [address], 11/16/2016 14:58:31 11/09/19 17 11/08/2016 cytol ogy, vagin al/ce rvica l gynecologica l cytology procedure SEE [facility]OW [facility] Depar tment of Patho logy GYNEC OLOGI ADAM CYTOL OGY REPOR T NAME: ZULAY DILLON PATHO LOGY NO.: [id number] Copy to: SOURC E OF SPECI MEN: CERVI ADAM/E NDOCE RVICA L-THI N PREP RELEV ANT HISTO RY: LMP: 10/16 SPECI MEN ADEQU ACY SATIS FACTO RY FOR EVALU ATION . ENDOC ERVIC AL/TR ANSFO RMATI ON ZONE COMPO NENT PRESE NT GENER AL CATEG ORIZA TION NEGAT KEILA FOR INTRA EPITH ELIAL LESIO N OR MALIG HUNTER [address], CT( CP) Maddie d Out Date: 11/16 15:36 Cervi adam/v agina l cytol ogy is a scree ml test with a recog nized false negat keila rate. New techn ologi es may decre ase, but will not elimi sierra false negat keila resul ts. Regul ar cytol ogy scree ml is recom madonna d to minim ize false negat keila resul ts. The ThinP rep(R ) Imagi ng syste m is used to lisa t in prima ry cervi adam cance r scree ml of ThinP rep(R ) Pap test slide s. 1 Not Available [facility] [address] [place] [address], [phone], 11/16/2016 15:37:33 11/10/19 18 11/14/2017 HPV DNA, high- risk high risk HPV Not Detect ed not detect ed normal This test was perfo rmed using the APTIM A HPV Assay ([employer] . This assay detec ts E6/E7 viral messe nger RNA (mRNA ) from 14 high- risk HPV types (16,1 8,31, 33,35 ,39,4 5,51, 52,56 ,58,5 9,66, 68). TEST PERFO RMED AT: [facility] [address] [address] TRISTAN Fernandez MD Not Available [facility] [place], [address], 11/14/2017 14:11:10 11/10/19 18 11/09/2017 cytol ogy, vagin al/ce rvica l gynecologica l cytology procedure SEE [facility] Depar tment of Patho logy GYNEC OLOGI ADAM CYTOL OGY REPOR T NAME: HIRAL MCMANUS ZULAYJake BOUCHER PATHO LOGY NO.: [id number] Copy to: SOURC E OF SPECI MEN: CERVI ADAM/E NDOCE RVICA L-THI N PREP RELEV ANT HISTO RY: LMP: 10/17 Comme nt: HPV CO-TE STING SPECI MEN ADEQU ACY SATIS FACTO RY FOR EVALU ATION . ENDOC ERVIC AL/TR ANSFO RMATI ON ZONE COMPO NENT PRESE NT GENER AL CATEG ORIZA TION NEGAT KEILA FOR INTRA EPITH ELIAL LESIO N OR MALIG HUNTER DESCR IPTIV E DIAGN OSIS PREDO MINAN CE OF COCCO BACIL LI CONSI STENT WITH SHIFT IN VAGIN AL JUANITO . REACT KEILA CELLU JEANNE CARLSON ES ASSOC IATED WITH HYPER KERAT OSIS COMME NT: SPECI MEN REFER RED FOR ADDIT IONAL TESTI NG J.RAFA MIRANDA MD Maddie d Out Date: 11/26 10:29 Cervi adam/v agina l cytol ogy is a scree ml test with a recog nized false negat keila rate. New techn ologi es may decre ase, but will not elimi sierra false negat keila resul ts. Regul ar cytol ogy scree ml is recom madonna d to minim ize false negat keila resul ts. The ThinP rep(R ) Imagi ng syste m is used to lisa t in prima ry cervi adam cance r scree ml of ThinP rep(R ) Pap test slide s. Page 1 of 1 Not Available [facility] [address] [place] [address], [address], 11/26/2017 10:30:18 11/26/19 19 11/28/2018 HPV DNA, high- risk high risk HPV Not Detect ed not detect ed normal This test was perfo rmed using the APTIM A HPV Assay ([employer] . This assay detec ts E6/E7 viral messe nger RNA (mRNA ) from 14 high- risk HPV types (16,1 8,31, 33,35 ,39,4 5,51, 52,56 ,58,5 9,66, 68). The clare tical perfo rmanc e kelly cteri stics of this assay have been deter mined by [facility]. The modif icati ons have not been clear ed or appro crow by the FDA. This assay has been valid ated pursu ant to the CLIA regul ation s and is used for clini adam purpo ses. TEST PERFO RMED AT: [facility] [place] [address] [place] [address] [place] [address] TRISTAN Fernandez MD Not Available [facility] [address] [place] [address], [address], 11/28/2018 14:46:46 11/26/19 19 11/25/2018 cytol ogy, vagin al/ce rvica l gynecologica l cytology procedure SEE [facility] Depar tment of Patho logy GYNEC OLOGI ADAM CYTOL OGY REPOR T NAME: ZULAY DILLON PATHO LOGY NO.: [id number] Copy to: [facility] E OF SPECI MEN: CERVI ADAM/E NDOCE RVICA L-THI N PREP RELEV ANT HISTO RY: No LMP given . Comme nt: HPV CO-TE STING SPECI MEN ADEQU ACY SATIS FACTO RY FOR EVALU ATION . ENDOC ERVIC AL/TR ANSFO RMATI ON ZONE COMPO NENT PRESE NT GENER AL CATEG ORIZA TION NEGAT KEILA FOR INTRA EPITH ELIAL LESIO N OR MALIG HUNTER COMME NT: SPECI MEN REFER RED FOR ADDIT IONAL TESTI NG GODFREY A L DINGE SS, CT( CP) Maddie d Out Date: 11/29 16:21 Cervi adam/v agina l cytol ogy is a scree ml test with a recog nized false negat keila rate. New techn ologi es may decre ase, but will not elimi sierra false negat keila resul ts. Regul ar cytol ogy scree ml is recom madonna d to minim ize false negat keila resul ts. The ThinP rep(R ) Imagi ng syste m is used to lisa t in prima ry cervi adam cance r scree ml of ThinP rep(R ) Pap test slide s. Page 1 of 1 Not Available [facility] [address] [facility], [place], [address], 11/29/2018 16:22:48 11/28/19 17 11/17/2016 MAMMO , scree ml, bilat eral No observ ation record ed. [email or web address] [facility] ([facility]) [address], [place], [address], 11/28/2016 08:33:12 11/28/19 18 11/20/2017 MAMMO , scree ml, tomos ynthe sis, bilat eral, w/ CAD No observ ation record ed. [address], [place], [address], 11/29/2017 15:59:50 12/18/19 18 12/12/2017 MAMMO , diagn ostic , tomos ynthe sis, bilat eral, w/ CAD No observ ation record ed. [facility] [address], [place], [address], 12/18/2017 09:21:16 12/13/19 19 12/12/2018 US, trans vagin al No observ ation record ed. [email or web address] [facility] [place] [address] [place], [id number], 12/17/2018 12:44:05 12/24/19 19 12/12/2018 MAMMO , diagn ostic , tomos ynthe sis, bilat eral, w/ CAD No observ ation record ed. [email or web address] [address], [place], [address], 01/01/2019 14:12:30 12/24/19 19 12/12/2018 MAMMO , diagn ostic , tomos ynthe sis, bilat eral, w/ CAD No observ ation record ed. [email or web address] [facility] [place] [address] [address], [place], [id number], 01/01/2019 14:12:30 01/08/20 19 12/31/2018 mg mammo graph y outsi de consu Marko vargas [address] [place] [address] Marcy kirkpatrick Name: KOJO BLACKMANPresley kirkpatrick : [phone] Marcy casimiro Orderi ng Provid er: DANIELLE FINCH RTY EXAM DATE: 2018 EXAM: MG MAMMOG RSOS OUTSID E CONSUL T CLINIC AL INFORM ATION: Breast images from an outsid e facili ty are submit damián for second opinio n/cons ultati on. IMAGES PROVID ED: 2-D digita l mammog thiago of both breast s are submit damián from December 12, 2018. Refere nce mammog thiago dated November 20, 2017 were also availa ble. Right breast ultras ound images were review ed from December 12, 2018 and December 12, 2017. FINDIN GS: The breast s are hetero geneou sly dense. This reduce s sensit ivity of mammog ross. Standa rd and spot compre ssion views of the left breast demons trate a 7 mm group of amorph ous microc alcifi cation s in the latera l at metallurgical lab technician ior depth around the 2:30 to 3:00 positi on. These are locate d 10 cm from the nipple on the cranio caudal view. Magnif ied views and true latera l images were not perfor med. Standa rd views of the right breast were perfor med and demons trate an 8 mm group of amorph ous microc alcifi cation s in the metallurgical lab technician ior medial breast around the 2:30 to 3:00 positi on. These are locate d 8 cm from the nipple on the mediol ateral obliqu e view. Magnif ied images were not perfor med. True latera l images were not perfor med. The dense fibrog landul ar parenc hymal patter n is stable . No mass is detect ed. Small masses and cysts may be obscur ed by dense surrou nding tissue . Right breast ultras ound was perfor med. This demons trates severa l small cysts scatte red in the breast measur ing up to 6 mm. No suspic ious solid mass is detect ed. The domina nt cyst at the 12:00 positi on is dimini shed in size compar ed with the previo us ultras ound. IMPRES BARRETT: BI-RAD S Catego ry 0, incomp lete, need additi onal imagin g evalua tion. 1. Amorph ous microc alcifi cation s are identi fied in both breast s includ ing a group in the metallurgical lab technician ior latera l left breast and a group in the metallurgical lab technician ior medial right breast . Charac teriza tion of these calcif icatio ns is incomp lete. Furthe r evalua tion is recomm ended with magnif ied views and true latera l 2-D/3- D mammog thiago. 2. Right breast ultras ound demons trates severa l subcen timete r benign -appea ring cysts scatte red in multip le quadra nts. None have suspic ious featur es to sugges t malign patrizia. The domina nt cyst noted previo usly at the 12:00 positi on is dimini shing in size. This improv ement is consis tent with a benign etiolo gy such as fibroc ystic change s. Interp reted By: Levar jones MD Electr onical ly Signed By: Levar jones MD on 01/08/20 10:09 AM [email or web address] [facility] [address] [place] [address], [phone], 01/08/2019 08:09:21 01/14/2001/13/2019 MAMMO , diagn ostic , tomos ynthe sis, bilat eral, w/ CAD [facility] [facility] [address] [place] [address] [place] [address] Marcy kirkpatrick Name: KOJO Vasquez Marcy casimiro : [phone] Patiduncan casimiro Orderi ng Provid er: DANIELLE FINCH RTY EXAM DATE: 2018 EXAM: MG TRACEY DIAG RBOERTO MAMMOG MANUELITO INDICA TION: This is a 53-yea r-old woman who is recall ed for furthe r evalua tion of bilate ral calcif icatio ns found on recent screen ing mammog thiago in outsid e facili ty. PROCED URE: Multis lice imagin g of the both breast s was perfor med using Hologi c Seleni a Dimens ions tomosy nthesi s equipm ent (3D mammog ross) . 2D images were create d from the 3D datase t using C-View softwa re. Images were evalua damián with the assist ance of Comput er Aided Detect ion (CAD) softwa re. Mediol ateral projec tions were obtain ed. Magnif ied views were also obtain ed of both breast s in the areas of concer n. COMPAR NEL: This is compar ed with prior mammog thiago dated December 12, 2018, December 07, 2017 and November 20, 2017. FINDIN GS: Breast tissue is extrem deepti dense. This reduce s sensit ivity of mammog ross. Magnif ied views of the right breast were perfor med in the areas of concer n and demons trate a loose groupi ng of amorph ous microc alcifi cation s in the metallurgical lab technician ior medial breast spanni ng 20 mm. All of the calcif ic partic les in this group demons trate depend ent layeri ng/fla ttenin g with gravit y on true latera l images . This is consis tent with calciu m precip itated within small cysts ( milk of calciu m ). Additi onal views of the left breast were also obtain ed includ ing magnif ied and true latera l views. These images demons trate a 7 mm group of amorph ous and round calcif icatio ns in the metallurgical lab technician ior latera l breast . A few of these calcif ic partic les also demons trate subtle flatte ml/l ayerin g with gravit y on true latera l images which favors milk of calciu m. This group appear s stable compar ed with previo us latera l images from December 2017. No associ ated mass is eviden t on tomosy nthesi s slices . Small masses and cysts may be obscur ed by dense tissue . IMPRES BARRETT: BI-RAD S catego ry 3, Probab ly Benign . 1. A group of calcif icatio ns in the medial right breast is consis tent with focal fibroc ystic change with calciu m precip itated in small cysts. No specia l imagin g follow -up is requir ed for the right breast . Screen ing is recomm ended in one year. 2. A small group of calcif icatio ns in the metallurgical lab technician ior latera l breast is stable compar ed with mammog thiago from one year ago. Some of these calcif ic partic les also demons trate morpho logy favori ng focal fibroc ystic change . Follow -up diagno stic mammog thiago of the left breast are recomm ended in 6 months with magnif ied views to familia rice of this group. Findin gs and recomm endati ons were discus sed with the patien t. Interp reted By: Levar jones MD Electr onical ly Signed By: Levar jones MD on 01/14/20 19 1:16 PM [facility] [address] [place], [address], 05/28/2019 10:52:35 05/26/20 19 05/26/2019 US, trans vagin al [facility] [address] [place] [address] Patiduncan kirkpatrick Name: KOJO kirkpatrick : [phone] Patiduncan kirkpatrick Orderi ng Provid er: DANIELLE FINCH RTY EXAM DATE: 2018 EXAM: US PELVIS SOFTWARE VALIDATION ENGINEER TRANSV AGINAL CLINIC AL INFORM ATION: Irregu lar menstr ual cycles TECHNI QUE: Multip le sonogr aphic images of the pelvis were obtain ed throug h transv aginal route. COMPAR NEL: None. FINDIN GS: UTERUS : Size = 6.3 x 2.9 x 3.4 cm. EMS thickn ess = 2.9 mm. Anteve rted, antefl exed, normal in size. Uterin e bebeto ecture somewh at hetero geneou s which may indica te underl hiwot fibroi ds Severa l small naboth janes cysts are noted. RIGHT ADNEXA : Ovary not visual ized LEFT ADNEXA : Ovary size = 2.8 x 1.7 x 2.2 cm. 1.8 cm cyst. Slight wall irregu larity noted theref ore I would sugges t follow -up for this findin g No adnexa l mass. CUL-DE -SAC: No fluid or mass IMPRES BARRETT: 1. Small compli cated cyst left ovary 2. Hetero geneou s appear ance of uterus may indica te tiny underl hiwot fibroi ds Interp reted By: Kyrie Sun MD Electr onical ly Signed By: Kyrie Sun MD on 2018 11:51 AM [email or web address] [facility] Obgyn [address] [address] [place] [address], [place], [address], 05/28/2019 13:10:30 07/07/20 19 07/07/2019 MAMMO , diagn ostic , tomos ynthe sis, unila teral , w/ CAD [place] [facility] [address] [facility] [place] [place] [address] Patiduncan kirkpatrick Name: KOJO kirkpatrick : [phone] Patiduncan kirkpatrick Orderi ng Provid er: DANIELLE FINCH RTY EXAM DATE: 2018 EXAM: MG LT DIAG ROBERTO MAMMOG MANUELITO Age: 53 years INDICA TION: Left breast calcif icatio ns PROCED URE: Multis lice imagin g of the left breast was perfor med includ ing standa rd views using Hologi c Seleni a Dimens ions tomosy nthesi s equipm ent (3D mammog ross) . 2D images were create d from the 3D datase t using C-View softwa re. Images were evalua damián with the assist ance of Comput er Aided Detect ion (CAD) softwa re. Magnif icatio n views in the area of concer n were also perfor med. COMPAR NEL: This is compar ed with prior mammog thiago dated 018, 2017, 2018, 2018 FINDIN GS: The left breast is extrem deepti dense. This reduce s sensit ivity of mammog ross. Again noted is a loosel y groupe d calcif icatio n cluste r locate d in the left breast roughl y at 3:00, 8 cm from the nipple marker . Stable in number and appear ance and very likely benign . Recomm end six-mo nth follow -up repeat magnif icatio n views and imagin g of the left breast with screen ing of the opposi te breast at the same time IMPRES BARRETT: BI-RAD S catego ry 3, Probab ly Benign . Six-mo nth follow -up bilate ral mammog ross recomm ended to includ e magnif icatio n views of the left breast Interp reted By: Kyrie Sun MD Electr onical ly Signed By: Kyrie Sun MD on 2018 1:38 PM [facility] [address], [address], 07/08/2019 14:00:56 07/07/20 19 07/07/2019 US, trans vagin al [place] [address] [address] Patiduncan kirkpatrick Name: KOJO BLACKMAN Christina kirkpatrick : [phone] Patiduncan t Orderi ng Provid er: DANIELLE FINCH RTY EXAM DATE: 2018 EXAM: US PELVIS SOFTWARE VALIDATION ENGINEER TRANSV AGINAL CLINIC AL INFORM ATION: Abnorm al bleedi ng. TECHNI QUE: Multip le sonogr aphic images of the pelvis were obtain ed throug h transv aginal route. COMPAR NEL: None. FINDIN GS: UTERUS : Size = 6.2 x 3.4 x 2.9 cm. EMS thickn ess = 2 mm. Anteve rted, antefl exed, normal in size. No myomet rial abnorm ality seen. RIGHT ADNEXA : Ovary size = 3 x 1.8 x 1.4 cm. Normal in size and appear ance. No adnexa l mass. LEFT ADNEXA : Ovary size = 3.2 x 2 x 2 cm. Normal in size and appear ance. No adnexa l mass. CUL-DE -SAC: No fluid or mass IMPRES BARRETT: Normal sonogr am of the pelvis . Interp reted By: Yani Lombardo MD Electr onical ly Signed By: Yani Lombardo MD on 2018 4:38 PM [facility] [address], [address], 07/08/2019 14:00:56 01/28/20 20 01/28/2020 MAMMO , diagn ostic , tomos ynthe sis, bilat eral, w/ CAD [place] [address] [place] [address] Marcy kirkpatrick Name: KOJO kirkpatrick : [phone] Marcy kirkpatrick Orderi ng Provid er: DANIELLE JUSTO DAWSONCHANDLERArcadio RTY EXAM DATE: 2019 EXAM: MG TRACEY DIAG ROBERTO MAMMOG MANUELITO Age: 54 years INDICA TION: Follow -up left breast calcif icatio ns. PROCED URE: Multis lice imagin g of the both breast s was perfor med using Hologi c Seleni a Dimens ions tomosy nthesi s equipm ent (3D mammog ross) . 2D images were create d from the 3D datase t using C-View softwa re. Images were evalua damián with the assist ance of Comput er Aided Detect ion (CAD) softwa re. Magnif icatio n views of the left breast were perfor med. COMPAR NEL: This is compar ed with prior mammog thiago dated Dece er 2018, January 13, 2019, December 12, 2018, December 07, 2017 and November 20, 2017. FINDIN GS: The breast s are hetero geneou sly dense. This reduce s sensit ivity of mammog ross. There is no mass or bebeto ectura l distor tion in either breast . Magnif ied views of the left breast were perfor med in the area of concer n and demons trate a 7 mm group of amorph ous calcif icatio ns in the metallurgical lab technician ior latera l breast around the 2:00 to 3:00 positi on. The group is stable in size compar ed with previo us magnif ied views. Some calcif ic partic les demons trate subtle flatte ml/l ayerin g with gravit y on a true latera l images which favors focal fibroc ystic change with calciu m precip itated in small cysts. There are a few simila r appear ing calcif icatio ns in the contra latera l breast that are stable . IMPRES BARRETT: BI-RAD S catego ry 3, Probab ly Benign . Mammog thiago are stable includ ing a group of calcif icatio ns in the latera l left breast . The morpho logy and stabil ity of these calcif icatio ns since 2018 favors a benign etiolo gy such as focal fibroc ystic change . Follow -up diagno stic mammog thiago of the left breast with magnif ied views are recomm ended in 12 months at the same time as screen ing of the contra latera l breast to taniya polo r than three- year stabil ity in order to rule out insidi ous diseas e. Findin gs and recomm endati ons were discus sed with the marcy wilson Interp reted By: Levar jones MD Electr onical ly Signed By: Levar jones MD on 020 2:50 PM [email or web address] [facility] Radiology [address], [address], 02/10/2020 22:54:25 Result Notes Documentation Provider Name and Address Organization Details Recorded Time Mammo, Diagnostic, Tomosynthesis, Bilateral, W/ Cad : [address] [address] Patient Name: VAL MAHAN Patient : 1965 Patient Ordering Provider: MORE WALSH EXAM DATE: 01/13/2019 EXAM: MG TRACEY DIAG ROBERTO MAMMOGRAM INDICATION: This is a 53-year-old woman who is recalled for further evaluation of bilateral calcifications found on recent screening mammograms in outside facility. PROCEDURE: Multislice imaging of the both breasts was performed using [employer] tomosynthesis equipment (3D mammography). 2D images were created from the 3D dataset using C-View software. Images were evaluated with the assistance of Computer Aided Detection (CAD) software. Mediolateral projections were obtained. Magnified views were also obtained of both breasts in the areas of concern. COMPARISON: This is compared with prior mammograms dated December 12, 2018, December 07, 2017 and November 20, 2017. FINDINGS: Breast tissue is extremely dense. This reduces sensitivity of mammography. Magnified views of the right breast were performed in the areas of concern and demonstrate a loose grouping of amorphous microcalcifications in the posterior medial breast spanning 20 mm. All of the calcific particles in this group demonstrate dependent layering/flattening with gravity on true lateral images. This is consistent with calcium precipitated within small cysts ( milk of calcium ). Additional views of the left breast were also obtained including magnified and true lateral views. These images demonstrate a 7 mm group of amorphous and round calcifications in the posterior lateral breast. A few of these calcific particles also demonstrate subtle flattening/layering with gravity on true lateral images which favors milk of calcium. This group appears stable compared with previous lateral images from December 2017. No associated mass is evident on tomosynthesis slices. Small masses and cysts may be obscured by dense tissue. IMPRESSION: BI-RADS category 3, Probably Benign. 1. A group of calcifications in the medial right breast is consistent with focal fibrocystic change with calcium precipitated in small cysts. No special imaging follow-up is required for the right breast. Screening is recommended in one year. 2. A small group of calcifications in the posterior lateral breast is stable compared with mammograms from one year ago. Some of these calcific particles also demonstrate morphology favoring focal fibrocystic change. Follow-up diagnostic mammograms of the left breast are recommended in 6 months with magnified views to further confirm stability of this group. Findings and recommendations were discussed with the patient. Interpreted By: Levar Man MD WALSH, CHIEF DISPATCHER [address] [place] [address], [id number] 05/28/2019 10:52:35 Mammo, Diagnostic, Tomosynthesis, Unilateral, W/ Cad : [address] [address] Patient Name: VAL MAHAN Patient : 1965 Patient Ordering Provider: MORE WALSH EXAM DATE: 07/07/2019 EXAM: LT DIAG ROBERTO MAMMOGRAM Age: 53 years INDICATION: Left breast calcifications PROCEDURE: Multislice imaging of the left breast was performed including standard views using [employer] tomosynthesis equipment (3D mammography). 2D images were created from the 3D dataset using C-View software. Images were evaluated with the assistance of Computer Aided Detection (CAD) software. Magnification views in the area of concern were also performed. COMPARISON: This is compared with prior mammograms dated 11/20/2017, 12/07/2017, 12/12/2018, 01/13/2019 FINDINGS: The left breast is extremely dense. This reduces sensitivity of mammography. Again noted is a loosely grouped calcification cluster located in the left breast roughly at 3:00, 8 cm from the nipple marker. Stable in number and appearance and very likely benign. Recommend six-month follow-up repeat magnification views and imaging of the left breast with screening of the opposite breast at the same time IMPRESSION: BI-RADS category 3, Probably Benign. Six-month follow-up bilateral mammography recommended to include magnification views of the left breast Interpreted By: Kyrie Sun MD Christal [facility] 07/08/2019 14:00:57 Mammo, Diagnostic, Tomosynthesis, Bilateral, W/ Cad : [facility] [address] [place] [address] Patient Name: VAL MAHAN Patient : 1965 Patient Ordering Provider: MORE WALSH EXAM DATE: 01/28/2020 EXAM: MG TRACEY DIAG ROBERTO MAMMOGRAM Age: 54 years INDICATION: Follow-up left breast calcifications. PROCEDURE: Multislice imaging of the both breasts was performed using [employer] tomosynthesis equipment (3D mammography). 2D images were created from the 3D dataset using C-View software. Images were evaluated with the assistance of Computer Aided Detection (CAD) software. Magnification views of the left breast were performed. COMPARISON: This is compared with prior mammograms dated July 07, 2019, January 13, 2019, December 12, 2018, December 07, 2017 and November 20, 2017. FINDINGS: The breasts are heterogeneously dense. This reduces sensitivity of mammography. There is no mass or architectural distortion in either breast. Magnified views of the left breast were performed in the area of concern and demonstrate a 7 mm group of amorphous calcifications in the posterior lateral breast around the 2:00 to 3:00 position. The group is stable in size compared with previous magnified views. Some calcific particles demonstrate subtle flattening/layering with gravity on a true lateral images which favors focal fibrocystic change with calcium precipitated in small cysts. There are a few similar appearing calcifications in the contralateral breast that are stable. IMPRESSION: BI-RADS category 3, Probably Benign. Mammograms are stable including a group of calcifications in the lateral left breast. The morphology and stability of these calcifications since 2018 favors a benign etiology such as focal fibrocystic change. Follow-up diagnostic mammograms of the left breast with magnified views are recommended in 12 months at the same time as screening of the contralateral breast to confirm greater than three-year stability in order to rule out insidious disease. Findings and recommendations were discussed with the patient. Interpreted By: Levar Man MD TOFER KANG DO [address] [place], [address], [facility] 02/10/2020 22:54:25 Problems No Known Problems Procedures Surgical History Date Name Laterality Status Provider Name and Address Organization Details Recorded Time 9 Date of Last Mammogram completed [facility] 01/14/2019 16:00:07 9 Pap Smear collection completed MORE WALSH APRN [address] [place], [address], [facility] 11/25/2018 10:26:13 9 Date of Last Pap Smear completed [facility] 12/03/2018 14:11:32 8 Pap Smear collection completed MORE WALSH APRN [address] [place], [address], [facility] 11/09/2017 10:50:21 7 Pap Smear collection completed MORE WALSH APRN [address] [place], [address], [facility] 11/08/2016 10:15:28 Imaging Results None recorded. Procedure Notes None recorded. Medical Equipment None Reported. Allergies No known drug allergies Medications Name Sig Start Date Stop Date Status Note LastModified by Organization Details LastModified Time promethaz ine-DM 6.25 mg-15 mg/5 mL oral syrup 11/08 completed Not Available Not Available Not Available Provera 10 mg tablet Take 1 tablet every day by oral route at bedtime for 12 days. 2018 active Not Available Not Available Not Avai lable levofloxa hortensia 500 mg tablet 11/08 completed Not Available Not Available Not Available methylpre dnisolone 4 mg tablets in a dose pack 11/08 completed Not Available Not Available Not Available Ventolin HFA 90 mcg/actua tion aerosol inhaler 11/08 completed Not Available Not Available Not Available melatonin active Medicati on Descript ion: melatoni n; refills: 0 Not Available Not Available Not Available Benadryl Allergy active Not Available Not Available Not Available Zyrtec PRN active Not Available Not Availa ble Not Available Havrix (PF) 1,440 MASON unit/mL intramusc ular syringe 11/25 completed Not Available Not Available Not Available Fluzone Quad (P F) 60 mcg(15 mcgx4)/0. 5 mL intramusc ular syringe 11/08 completed Not Available Not Available Not Available Fluzone Quad (P F) 60 mcg(15 mcgx4)/0. 5 mL intramusc ular syringe 11/25 completed Not Available Not Available Not Available Vitals Date Recorded Body weight Body height Body mass index (BMI) Systolic And Diastolic Provider Name and Address Organization Details Last Updated DateTime 11/08/2016 26561.12 g 144.78 cm 30.7 kg/m2 122/80 mm[Hg] Raina Ordoñez [facility] 11/08/2016 09:26:48 Date Recorded Body height Body mass index (BMI) Body weight Systolic And Diastolic Provider Name and Address Organization Details Last Updated DateTime 11/09/2017 144.78 cm 29.9 kg/m2 23601.75 g 126/84 mm[Hg] Christal Wilkinson [facility] 11/09/2017 10:08:32 Date Recorded Body height Body mass index (BMI) Body weight Respiratory rate Systolic And Diastolic Provider Name and Address Organization Details Last Updated DateTime 11/25/2018 144.78 cm 29.8 kg/m2 92200.3 4 g 16 /min 110/60 mm[Hg] Shiloh Cedillo [facility] 9 09:40:47 Social History Question Answer Notes LastModified by Organizat ion Details LastModified Time Tobacco Smoking Status [facility] 11/08/2016 09:34:10 How Much Tobacco Do You Chew? None [email or web address] Information not available 11/25/2018 What Was The Date Of Your Most Recent Tobacco Screening? 11/25/2018 Information n ot available 08/26/2019 How Much Tobacco Do You Smoke? No [email or web address] Information not available 11/25/2018 How Many Years Have You Smoked Tobacco? 15 [email or web address] Information not available 11/25/2018 Sex: Unknown Functional Status None recorded. Mental Status None recorded. Family History Relationship Description Onset Age of this Age Resolved Age Notes LastModified by Organization Details LastModified Time Mother Arthritis [email or web address] Not avai lable 11/08/2016 09:30:35 Mother Asthma [email or web address] Not availab le 11/08/2016 09:30:48 Mother Diabetes mellitus [email or web address] Not available 09/2016 09:32:47 Mother Hyperlipidem ia [email or web address] Not available 09/2016 09:33:20 Maternal Aunt Malignant neoplasm of liver [email or web address] Not available 09/2016 09:31:11 Unspecified Relation Malignant neoplasm of breast matern al great grandm other [email or web address] Not available 11/08/2016 09:32:18 Father Diabetes mellitus [email or web address] Not available 09/2016 09:32:39 Father Hyperlipidem ia [email or web address] Not available 09/2016 09:33:20 Father Essential hypertension [email or web address] Not available 11/08/2016 09:33:53 Sister Hyperlipidem ia [email or web address] Not available 09/2016 09:33:20 Sister Essential hypertension [email or web address] Not available 11/08/2016 09:33:53 Notes:great grandmother Medical History Condition Response Chicken Pox Y Gynecological History Statement/Question Response Date of Last Colonoscopy Date of Last Mammogram 01/13/2019 Flow Light Most Recent Bone Density Date of LMP 10/12/2018 Menses Monthly Y Date of Last Pap Smear 11/25/2018 Duration of Flow (days) 5 Current Control Method None Age at Menarche 13 LMP Definite Obstetrics History GPAL:G 0 P 0 0 0 0 Type Value Full Term 0 Total 0 Past Encounters Encounter ID Performer Location Encounter Start Date Encounter Closed Date Diagnosis/Indication Diagnosis SNOMED-CT Code Diagnosis ICD10 Code Diagnosis IMO Codes Diagnosis Note [id number] MORE JILLIAN, CHIEF DISPATCH[address] [place] [address] 11/08/2016 09:18:17 11/08/2016 10:26:58 Gynecologic examination 99290190 Z01.419 Screening for malignant neoplasm of breast 516520290 Z12.31 Contracept ion care management 430874819 Z30.9 History of abnormal cervical Papanicolaou smear 045394213 Z87.42 Infection screening 2437 25296 Z11.[id number] [place] [address] 11/09/2017 09:51:00 11/09/2017 11:18:03 Gynecologic examination 35176005 Z01.419 Discussed SBEs Menopausal symptom 08331 002 N95.1 Check labs first Even though no conception , BC method needs to be addressed until menopause Will call with results and POC Screening for malignant neoplasm of breast 111267242 Z12.31 History of abnormal cervical Papanicolaou smear 127741553 Z87.42 Pap smear pending Body mass index 25-29 - overweight 457682501 Z68.29 Handout given with diet and exercise recommenda tions [id number] [place] [address] 11/25/2018 09:20:37 11/25/2018 10:26:16 Gynecologic examination 90324744 Z01.419 Declines colonoscop y order today - she will discuss with PCP Abnormal u terine bleeding 4617744779 9100 N93.9 Discussed perimenopa use vs menopause and risk of hyperplasi a and AUB Further eval with labs and u/s - will call to discuss Hyperlipidemia 30151059 E78.5 Mammography abnormal 168 682962 R92.8 Stressed importance of f/u Will need bilateral dx mammogram Discussed monthly SBEs History of abnormal cervical Papanicolaou smear 424411574 Z87.42 Pap smear and HPV pending Health Concerns Section Related Observation LastModified by Organization Detai ls LastModified Time None Recorded Concern Status LastModified by Organization Details LastModified Time None Recorded Advance Directives Directive None Recorded Payers Insurance Date Sequence Insurance Name Policy Number Policy Briones Covered Member ID Briones Member ID Guarantor Name 01/27/2020 1 [id number] (O) [id number] Val Galvez Feeback [id number] Val Feeback 06/02/2020 1 [facility] [employer] [facility] ([id number]) [id number] Val Galvez Feeback [id number] Val Feeback Notes Date Note Type Note Provider Name and Address Organization Details Recorded Time 11/08/2016 text/html Presents for annual exam and Pap smearHx HORTENSIA 2 with cryoMenses monthly - only skipped once in May 2016Denies climacteric sxNo form of BC method - has been with partner x 18 yrs and never conceivedNeeds mammogramNo c/o today MORE WALSH, CHIEF DISPATCHER [address] [place], [address], [facility] 11/08/2016 16:34:11 11/09/2017 text/html Presents for annual exam and Pap smear Hx CIN2 and cryo Needs mammogram Has missed 1 or 2 periods in the last year O/w periods have been monthly Bothersome night sweats qhs now Would like to discuss mgmt options No current BC method Has been with same partner x 18 years and has never conceived MORE WALSH, CHIEF DISPATCHER [address] [place], [address], [facility] 11/09/2017 16:42:27 11/25/2018 text/html Presents for annual exam and Pap smear Hx CIN2 and cryo Has missed 1 or 2 periods in the last year O/w periods have been monthly LMP 10/12/18 - period like flow x 7 days then spotting x 7 days No pelvic pain, dysparuenia, or postcoital bldg Still with hot flashes - labs last yr not perimenopausal or menopausal No current BC method Has been with same partner x 18 years and has never conceived Screening mammogram last yr - radiologist recommended f/u bilateral dx mammogram and u/s but she did not keep appt bc her Father had a CVA when it was scheduled He is doing better now but still not fully recovered Cholesterol elevated last yr - needs rpt for f/u Has never had a colonoscopy MORE WALSH, CHIEF DISPATCHER [address] [place], [address], [facility] 11/25/2018 16:01:02 OBGyn Episode No OBEpisode recorded.
--- OUTSIDE RECORDS SUMMARY | 2025-06-24 07:44 | XMS_ITS | Data Portability ---
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 Plan of Treatment Reminders Order Date Submit Date Provider Last Modified By Organization Details Last Modified Time Details Appointments FOLLOW UP 15 2025 10:30A Chong Sparks, HANY Not available Not available Not available Lab rapid influenza virus A + B and SARS CoV + SARS CoV 2 Ag panel, [place], upper respirato ry specimen [address], [address], 06/11/2025 15:42:54 lipid panel, serum 2024 025 [place] [facility], [address] [place] [address], [id number], 05/08/2025 09:08:37 CBC w/ auto diff 2024 025 [place] [facility], [address] [place] [address], [id number], 05/08/2025 09:08:35 CMP, serum or plasma 2024 025 [place] [facility], [address] [place] [address], [id number], 05/08/2025 09:08:36 TSH + free T4, serum 2024 025 JORGE ALBERTO [facility] ([place]), [address] [place], [address], 05/08/2025 09:08:34 HbA1c (hemoglob in A1c), blood 2024 025 JOR[facility] ALBERTO [facility] ([place]), [address] [place], [address], 05/08/2025 09:08:38 vitamin D, 25-hydrox y, total, serum 2024 025 JORGE ALBERTO [facility] ([place]), [address] [place], [address], 05/08/2025 09:08:38 cobalamin and folate panel, serum 2024 025 [place] [facility] ([place]), [address] [place], [address], 05/08/2025 09:08:37 lipid panel, serum 2024 025 [place] [facility] ([place]), [address] [place], [address], 11/05/2024 08:27:05 CBC w/ auto diff 2024 025 [place] [facility] ([place]), [address] [place], [address], 11/05/2024 08:27:03 CMP, serum or plasma 2024 025 [facility] AL[facility]ERT[facility] ([place]), [address] [place], [address], 11/05/2024 08:27:04 TSH + free T4, serum 2024 025 JORGE ALBERTO [facility] ([place]), [address] [place], [address], 11/05/2024 08:27:02 HbA1c (hemoglob in A1c), blood 2024 025 [place] [facility] ([place]), [address] [facility], [place], [address], 11/05/2024 08:27:07 cobalamin and folate panel, serum 2024 025 [place] [facility] ([place]), [address] [facility], [place], [address], 11/05/2024 08:27:06 vitamin D, 25-hydrox y, total, serum 2024 025 [place] [facility] ([place]), [address] [facility], [place], [address], 11/05/2024 08:27:07 rapid flu (A+B) [address], [address], 06/12/2024 16:06:24 rapid SARS CoV 2 Ag, QL, IA, upper respirato ry specimen [address], [address], 06/12/2024 16:06:24 Referral None recorded. Procedures None recorded. Surgeries None recorded. Imaging XR, chest, 2 view 2023 024 [facility], [address] [place] [address], [id number], 06/12/2024 16:34:29 Medication Orders nystatin 100,000 unit/mL oral suspensio n [address] [facility], [address] [place] [address], [id number], 06/11/2025 12:33:42 prednison e 20 mg tablet [address] [facility], [address] [place] [address], [id number], 06/21/2025 05:01:29 cefdinir 300 mg capsule [address] [facility], [address] [place] [address], [id number], 06/11/2025 12:33:41 cetirizin e 10 mg tablet 2024 025 [facility], [address] [place] [address], [id number], 05/07/2025 11:25:33 Crestor 40 mg tablet 2024 025 [facility], [address] [place] [address], [id number], 05/07/2025 11:25:34 albuterol sulfate HFA 90 mcg/actua tion aerosol inhaler 2024 025 [facility], [address] [place] [address], [id number], 05/21/2025 12:04:17 fluticaso ne 500 mcg-salme terol 50 mcg/dose blistr powdr for inhalatio n 2024 025 [facility], [address] [place] [address], [id number], 05/21/2025 12:04:16 prednison e 20 mg tablet [address] [facility], [address] [place] [address], [id number], 06/21/2025 05:01:29 azithromy hortensia 250 mg tablet [address] [facility], [address] [place] [address], [id number], 05/07/2025 12:34:03 Crestor 40 mg tablet 2024 025 [facility], [address] [place] [address], [id number], 04/28/2025 13:05:40 albuterol sulfate HFA 90 mcg/actua tion aerosol inhaler 2024 025 [facility], [address] [place] [address], [id number], 12/24/2024 14:13:02 doxycycli ne hyclate 100 mg capsule [address] [facility], [address] [place] [address], [id number], 11/04/2024 13:10:50 prednison e 20 mg tablet 2023 025 [facility], [address] [place] [address], [id number], 06/21/2025 05:01:29 Patient TargetsNo targets recorded. Patient InstructionsNo instructions recorded. Reason for Referral None Reported. Results Created Date Observation Date Name Description Value Unit Range Abnormal Flag Note LastModifiedBy Organization Detail LastModifiedTime 06/12/2006/12/2024 rapid flu (A+B) Flu A negati ve Not Available [address], [address], 06/12/2024 14:09:01 06/12/2006/12/2024 rapid flu (A+B) Flu B negati ve Not Available [address], [address], 06/12/2024 14:09:01 06/12/20 24 06/12/2024 rapid SARS CoV 2 Ag, QL, [place], upper respi rator y speci men SARS CoV Ag negati ve Not Available [address], [place], [address], 06/12/2024 14:09:02 11/05/19 25 11/05/2024 TSH+F REE T4 TSH 1.220 uIU/m L 0.450- 4.500 normal Not Available [facility] ([facility]) [address] [place], [address], 11/05/2024 08:27:02 11/05/1911/05/2024 TSH+F REE T4 T4,free(dire ct) 1.20 NG/dL 0.82-1 .77 normal Not Available [facility] ([facility]) [address] [place], [address], 11/05/2024 08:27:02 11/05/19 25 11/05/2024 CBC WITH DIFFE RENTI AL/PL ATELE T WBC 6.0 x10e3 /uL 3.4-10 .8 normal Not Available [facility] ([facility]) [address] [place], [address], 11/05/2024 08:27:03 11/05/19 25 11/05/2024 CBC WITH DIFFE RENTI AL/PL ATELE T RBC 5.10 x10e6 /uL 3.77-5 .28 normal Not Available [facility] ([facility]) [address] [place], [address], 11/05/2024 08:27:03 11/05/19 25 11/05/2024 CBC WITH DIFFE RENTI AL/PL ATELE T hemoglobin 15.7 g/dL 11.1-1 5.9 normal Not Available [facility] ([facility]) [address] [place], [address], 11/05/2024 08:27:03 11/05/19 25 11/05/2024 CBC WITH DIFFE RENTI AL/PL ATELE T hematocrit 48.5 % 34.0-4 6.6 above high normal Not Available [facility] ([facility]) [address] [facility], [place], [address], 11/05/2024 08:27:03 11/05/19 25 11/05/2024 CBC WITH DIFFE RENTI AL/PL ATELE T MCV 95 fL 79-97 normal Not Available [facility] ([facility]) [address] [place], [address], 11/05/2024 08:27:03 11/05/19 25 11/05/2024 CBC WITH DIFFE RENTI AL/PL ATELE T MCH 30.8 pg 26.6-3 3.0 normal Not Available [facility] ([facility]) [address] [place], [address], 11/05/2024 08:27:03 11/05/19 25 11/05/2024 CBC WITH DIFFE RENTI AL/PL ATELE T MCHC 32.4 g/dL 31.5-3 5.7 normal Not Available [facility] ([facility]) [address] [place], [address], 11/05/2024 08:27:03 11/05/19 25 11/05/2024 CBC WITH DIFFE RENTI AL/PL ATELE T RDW 12.2 % 11.7-1 5.4 Not Available [facility] ([facility]) [address] [place], [address], 11/05/2024 08:27:03 11/05/19 25 11/05/2024 CBC WITH DIFFE RENTI AL/PL ATELE T platelets 354 x10e3 /uL 150-45 0 normal Not Available [facility] ([facility]) [address] [place], [address], 11/05/2024 08:27:03 11/05/19 25 11/05/2024 CBC WITH DIFFE RENTI AL/PL ATELE T neutrophils 51 % not estab. normal Not Available [facility] ([facility]) [address] [facility], [place], [address], 11/05/2024 08:27:03 11/05/19 25 11/05/2024 CBC WITH DIFFE RENTI AL/PL ATELE T lymphs 38 % not estab. normal Not Available [facility] ([facility]) [address] [facility], [place], [address], 11/05/2024 08:27:03 11/05/19 25 11/05/2024 CBC WITH DIFFE RENTI AL/PL ATELE T monocytes 5 % not estab. normal Not Available [facility] ([facility]) [address] [facility], [place], [address], 11/05/2024 08:27:03 11/05/19 25 11/05/2024 CBC WITH DIFFE RENTI AL/PL ATELE T eos 6 % not estab. normal Not Available [facility] ([facility]) [address] [facility], [place], [address], 11/05/2024 08:27:03 11/05/19 25 11/05/2024 CBC WITH DIFFE RENTI AL/PL ATELE T basos 0 % not estab. normal Not Available [facility] ([facility]) [address] [facility], [place], [address], 11/05/2024 08:27:03 11/05/19 25 11/05/2024 CBC WITH DIFFE RENTI AL/PL ATELE T immature cells CAR JOCKEY Not Available [facility] ([facility]) [address] [place], [address], 11/05/2024 08:27:03 11/05/19 25 11/05/2024 CBC WITH DIFFE RENTI AL/PL ATELE T neutrophils (absolute) 3.0 x10e3 /uL 1.4-7. 0 normal Not Available [facility] ([facility]) [address] [facility], [place], [address], 11/05/2024 08:27:03 11/05/19 25 11/05/2024 CBC WITH DIFFE RENTI AL/PL ATELE T lymphs (absolute) 2.3 x10e3 /uL 0.7-3. 1 normal Not Available [facility] ([facility]) [address] [facility], [place], [address], 11/05/2024 08:27:03 11/05/19 25 11/05/2024 CBC WITH DIFFE RENTI AL/PL ATELE T monocytes(ab solute) 0.3 x10e3 /uL 0.1-0. 9 normal Not Available [facility] ([facility]) [address] [facility], [place], [address], 11/05/2024 08:27:03 11/05/19 25 11/05/2024 CBC WITH DIFFE RENTI AL/PL ATELE T eos (absolute) 0.4 x10e3 /uL 0.0-0. 4 normal Not Available [facility] ([facility]) [address] [facility], [place], [address], 11/05/2024 08:27:03 11/05/19 25 11/05/2024 CBC WITH DIFFE RENTI AL/PL ATELE T baso (absolute) 0.0 x10e3 /uL 0.0-0. 2 normal Not Available [facility] ([facility]) [address] [place], [address], 11/05/2024 08:27:03 11/05/19 25 11/05/2024 CBC WITH DIFFE RENTI AL/PL ATELE T immature granulocytes 0 % not estab. Not Available [facility] ([facility]) [address] [facility], [place], [address], 11/05/2024 08:27:03 11/05/19 25 11/05/2024 CBC WITH DIFFE RENTI AL/PL ATELE T immature grans (abs) 0.0 x10e3 /uL 0.0-0. 1 Not Available [facility] ([facility]) [address] [facility], [place], [address], 11/05/2024 08:27:03 11/05/19 25 11/05/2024 CBC WITH DIFFE RENTI AL/PL ATELE T NRBC CAR JOCKEY Not Available [facility] ([facility]) [address] [facility], [place], [address], 11/05/2024 08:27:03 11/05/19 25 11/05/2024 CBC WITH DIFFE RENTI AL/PL ATELE T hematology comments: CAR JOCKEY Not Available [facility] ([facility]) [address] [facility], [place], [address], 11/05/2024 08:27:03 11/05/19 25 11/05/2024 COMP. METAB OLIC PANEL (14) glucose 106 mg/dL 70-99 above high normal Not Available [facility] ([facility]) [address] [facility], [place], [address], 11/05/2024 08:27:04 11/05/19 25 11/05/2024 COMP. METAB OLIC PANEL (14) BUN 12 mg/dL 6-24 normal Not Available [facility] ([facility]) [address] [facility], [place], [address], 11/05/2024 08:27:04 11/05/19 25 11/05/2024 COMP. METAB OLIC PANEL (14) creatinine 0.98 mg/dL 0.57-1 .00 normal Not Available [facility] ([facility]) [address] [place], [address], 11/05/2024 08:27:04 11/05/19 25 11/05/2024 COMP. METAB OLIC PANEL (14) eGFR 68 mL/mi n/1.7 3 >59 normal Not Available [facility] ([facility]) [address] [place], [address], 11/05/2024 08:27:04 11/05/19 25 11/05/2024 COMP. METAB OLIC PANEL (14) BUN/creatini ne ratio 12 9-23 normal Not Available [facility] ([facility]) [address] [place], [address], 11/05/2024 08:27:04 11/05/19 25 11/05/2024 COMP. METAB OLIC PANEL (14) sodium 142 mmol/ L 134-14 4 normal Not Available [facility] ([facility]) [address] [place], [address], 11/05/2024 08:27:04 11/05/19 25 11/05/2024 COMP. METAB OLIC PANEL (14) potassium 4.5 mmol/ L 3.5-5. 2 normal Not Available [facility] ([facility]) [address] [place], [address], 11/05/2024 08:27:04 11/05/19 25 11/05/2024 COMP. METAB OLIC PANEL (14) chloride 104 mmol/ L 96-106 normal Not Available [facility] ([facility]) [address] [facility] [place], [address], 11/05/2024 08:27:04 11/05/19 25 11/05/2024 COMP. METAB OLIC PANEL (14) carbon dioxide, total 20 mmol/ L 20-29 normal Not Available [facility] ([facility]) [address] [place], [address], 11/05/2024 08:27:04 11/05/19 25 11/05/2024 COMP. METAB OLIC PANEL (14) calcium 9.9 mg/dL 8.7-10 .2 normal Not Available [facility] ([facility]) [address] [place], [address], 11/05/2024 08:27:04 11/05/19 25 11/05/2024 COMP. METAB OLIC PANEL (14) protein, total 7.1 g/dL 6.0-8. 5 normal Not Available [facility] ([facility]) [address] [place], [address], 11/05/2024 08:27:04 11/05/19 25 11/05/2024 COMP. METAB OLIC PANEL (14) albumin 5.0 g/dL 3.8-4. 9 above high normal Not Available [facility] ([facility]) [address] [place], [address], 11/05/2024 08:27:04 11/05/19 25 11/05/2024 COMP. METAB OLIC PANEL (14) globulin, total 2.1 g/dL 1.5-4. 5 Not Available [facility] ([facility]) [address] [place], [address], 11/05/2024 08:27:04 11/05/19 25 11/05/2024 COMP. METAB OLIC PANEL (14) bilirubin, total 0.5 mg/dL 0.0-1. 2 normal Not Available [facility] ([facility] [address] [facility] [place], [address], 11/05/2024 08:27:04 11/05/19 25 11/05/2024 COMP. METAB OLIC PANEL (14) alkaline phosphatase 99 IU/L 44-121 normal Not Available [facility] ([facility]) [address] [place], [address], 11/05/2024 08:27:04 11/05/19 25 11/05/2024 COMP. METAB OLIC PANEL (14) AST (SGOT) 32 IU/L 0-40 normal Not Available [facility] ([facility]) [address] [facility] [place], [address], 11/05/2024 08:27:04 11/05/19 25 11/05/2024 COMP. METAB OLIC PANEL (14) ALT (SGPT) 31 IU/L 0-32 normal Not Available [facility] ([facility]) [address] [facility] [place], [address], 11/05/2024 08:27:04 11/05/19 25 11/05/2024 LIPID PANEL cholesterol, total 160 mg/dL 100-19 9 normal Not Available [facility] ([facility]) [address] [place], [address], 11/05/2024 08:27:05 11/05/19 25 11/05/2024 LIPID PANEL triglyceride s 104 mg/dL 0-149 normal Not Available [facility] ([facility]) [address] [place], [address], 11/05/2024 08:27:05 11/05/19 25 11/05/2024 LIPID PANEL HDL cholesterol 68 mg/dL >39 normal Not Available [facility] ([facility]) [address] [place], [address], 11/05/2024 08:27:05 11/05/19 25 11/05/2024 LIPID PANEL VLDL cholesterol memo 19 mg/dL 5-40 Not Available [facility] ([facility]) [address] [place], [address], 11/05/2024 08:27:05 11/05/19 25 11/05/2024 LIPID PANEL LDL chol calc ([facility]) 73 mg/dL 0-99 Not Available [facility] ([facility]) [address] [place], [address], 11/05/2024 08:27:05 11/05/19 25 11/05/2024 LIPID PANEL LDL calc comment: CAR JOCKEY Not Available [facility] ([facility]) [address] [place], [address], 11/05/2024 08:27:05 11/05/19 25 11/05/2024 VITAM IN B12 AND FOLAT E vitamin B12 724 pg/mL 232-12 45 normal Not Available [facility] ([facility]) [address] [facility], [place], [address], 11/05/2024 08:27:06 11/05/19 25 11/05/2024 VITAM IN B12 AND FOLAT E folate (folic acid), serum 13.8 NG/mL >3.0 normal A serum folat e kenji ntrat ion of less than 3.1 ng/mL is consi dered to repre sent clini memo defic iency . Not Available [facility] ([facility]) [address] [facility], [place], [address], 11/05/2024 08:27:06 11/05/1911/05/2024 HEMOG LOBIN A1C hemoglobin A1C 6.0 % 4.8-5. 6 above high normal Predi abete s: 5.7 - 6.4 Diabe sinan: >6.4 Glyce vivien contr ol for adult s with diabe sinan: <7.0 Not Available [facility] ([facility]) [address] [facility], [place], [address], 11/05/2024 08:27:07 11/05/19 25 11/05/2024 VITAM IN D, 25-HY DROXY vitamin D, 25-hydroxy 113.0 NG/mL 30.0-1 00.0 above high normal Vitam in D defic iency has been defin ed by the Insti tute of Medic ine and an Endoc rine Socie ty pract ice guide line as a level of serum 25-OH vitam in D less than 20 ng/mL (1,2) . The Endoc rine Socie ty went on to furth er defin e vitam in D insuf ficie ncy as a level betwe en 21 and 29 ng/mL (2). 1. IOM (Inst itute of Medic ine). 2010. Dieta ry refer ence intak es for calci um and D. [place]: [facility] . 2. Robert ayala [place], Candelaria pino [place], Livan off-F errar i CARRANZA, et al. Evalu ation , treat ment, and preve ntion of vitam in D defic iency : an Endoc rine Socie ty clini memo pract ice guide line. JCEM. 2010; 96(7) :1911 -30. Not Available [facility] ([facility]) [address] [facility], [place], [address], 11/05/2024 08:27:07 05/07/2005/08/2025 TSH+F REE T4 TSH 1.510 uIU/m L 0.450- 4.500 normal Not Available [facility] ([facility]) [address] [place], [address], 05/08/2025 09:08:34 05/07/2005/08/2025 TSH+F REE T4 T4,free(dire ct) 1.24 NG/dL 0.82-1 .77 normal Not Available [facility] ([facility]) [address] [place], [address], 05/08/2025 09:08:34 05/07/2005/08/2025 CBC WITH DIFFE RENTI AL/PL ATELE T WBC 5.7 x10e3 /uL 3.4-10 .8 normal Not Available [facility] ([facility]) [address] [place], [address], 05/08/2025 09:08:35 05/07/2005/08/2025 CBC WITH DIFFE RENTI AL/PL ATELE T RBC 4.96 x10e6 /uL 3.77-5 .28 normal Not Available [facility] ([facility]) [address] [place], [address], 05/08/2025 09:08:35 05/07/2005/08/2025 CBC WITH DIFFE RENTI AL/PL ATELE T hemoglobin 15.0 g/dL 11.1-1 5.9 normal Not Available [facility] ([facility]) [address] [facility], [place], [address], 05/08/2025 09:08:35 05/07/2005/08/2025 CBC WITH DIFFE RENTI AL/PL ATELE T hematocrit 47.2 % 34.0-4 6.6 above high normal Not Available [facility] ([facility]) [address] [facility], [place], [address], 05/08/2025 09:08:35 05/07/2005/08/2025 CBC WITH DIFFE RENTI AL/PL ATELE T MCV 95 fL 79-97 normal Not Available [facility] ([facility]) [address] [facility], [place], [address], 05/08/2025 09:08:35 05/07/2005/08/2025 CBC WITH DIFFE RENTI AL/PL ATELE T MCH 30.2 pg 26.6-3 3.0 normal Not Available [facility] ([facility]) [address] [place], [address], 05/08/2025 09:08:35 05/07/2005/08/2025 CBC WITH DIFFE RENTI AL/PL ATELE T MCHC 31.8 g/dL 31.5-3 5.7 normal Not Available [facility] ([facility]) [address] [place], [address], 05/08/2025 09:08:35 05/07/2005/08/2025 CBC WITH DIFFE RENTI AL/PL ATELE T RDW 12.9 % 11.7-1 5.4 Not Available [facility] ([facility]) [address] [place], [address], 05/08/2025 09:08:35 05/07/2005/08/2025 CBC WITH DIFFE RENTI AL/PL ATELE T platelets 372 x10e3 /uL 150-45 0 normal Not Available [facility] ([facility]) [address] [facility], [place], [address], 05/08/2025 09:08:35 05/07/20 25 05/08/2025 CBC WITH DIFFE RENTI AL/PL ATELE T neutrophils 59 % not estab. normal Not Available [facility] ([facility]) [address] [facility], [place], [address], 05/08/2025 09:08:35 05/07/2005/08/2025 CBC WITH DIFFE RENTI AL/PL ATELE T lymphs 33 % not estab. normal Not Available [facility] ([facility]) [address] [facility], [place], [address], 05/08/2025 09:08:35 05/07/2005/08/2025 CBC WITH DIFFE RENTI AL/PL ATELE T monocytes 5 % not estab. normal Not Available [facility] ([facility]) [address] [facility], [place], [address], 05/08/2025 09:08:35 05/07/20 25 05/08/2025 CBC WITH DIFFE RENTI AL/PL ATELE T eos 2 % not estab. normal Not Available [facility] ([facility]) [address] [facility], [place], [address], 05/08/2025 09:08:35 05/07/20 25 05/08/2025 CBC WITH DIFFE RENTI AL/PL ATELE T basos 1 % not estab. normal Not Available [facility] ([facility]) [address] [facility], [place], [address], 05/08/2025 09:08:35 05/07/20 25 05/08/2025 CBC WITH DIFFE RENTI AL/PL ATELE T immature cells CAR JOCKEY Not Available [facility] ([facility]) [address] [facility], [place], [address], 05/08/2025 09:08:35 05/07/2005/08/2025 CBC WITH DIFFE RENTI AL/PL ATELE T neutrophils (absolute) 3.4 x10e3 /uL 1.4-7. 0 normal Not Available [facility] ([facility]) [address] [facility], [place], [address], 05/08/2025 09:08:35 05/07/2005/08/2025 CBC WITH DIFFE RENTI AL/PL ATELE T lymphs (absolute) 1.9 x10e3 /uL 0.7-3. 1 normal Not Available [facility] ([facility]) [address] [facility], [place], [address], 05/08/2025 09:08:35 05/07/2005/08/2025 CBC WITH DIFFE RENTI AL/PL ATELE T monocytes(ab solute) 0.3 x10e3 /uL 0.1-0. 9 normal Not Available [facility] ([facility]) [address] [facility], [place], [address], 05/08/2025 09:08:35 05/07/20 25 05/08/2025 CBC WITH DIFFE RENTI AL/PL ATELE T eos (absolute) 0.1 x10e3 /uL 0.0-0. 4 normal Not Available [facility] ([facility]) [address] [facility], [place], [address], 05/08/2025 09:08:35 05/07/2005/08/2025 CBC WITH DIFFE RENTI AL/PL ATELE T baso (absolute) 0.0 x10e3 /uL 0.0-0. 2 normal Not Available [facility] ([facility]) [address] [facility], [place], [address], 05/08/2025 09:08:35 05/07/2005/08/2025 CBC WITH DIFFE RENTI AL/PL ATELE T immature granulocytes 0 % not estab. Not Available [facility] ([facility]) [address] [facility], [place], [address], 05/08/2025 09:08:35 05/07/20 25 05/08/2025 CBC WITH DIFFE RENTI AL/PL ATELE T immature grans (abs) 0.0 x10e3 /uL 0.0-0. 1 Not Available [facility] ([facility]) [address] [facility], [place], [address], 05/08/2025 09:08:35 05/07/2005/08/2025 CBC WITH DIFFE RENTI AL/PL ATELE T NRBC CAR JOCKEY Not Available [facility] ([facility]) [address] [facility], [place], [address], 05/08/2025 09:08:35 05/07/2005/08/2025 CBC WITH DIFFE RENTI AL/PL ATELE T hematology comments: CAR JOCKEY Not Available [facility] ([facility]) [address] [facility], [place], [address], 05/08/2025 09:08:35 05/07/20 25 05/08/2025 COMP. METAB OLIC PANEL (14) glucose 93 mg/dL 70-99 normal Not Available [facility] ([facility]) [address] [facility], [place], [address], 05/08/2025 09:08:36 05/07/20 25 05/08/2025 COMP. METAB OLIC PANEL (14) BUN 11 mg/dL 6-24 normal Not Available [facility] ([facility]) [address] [facility], [place], [address], 05/08/2025 09:08:36 05/07/20 25 05/08/2025 COMP. METAB OLIC PANEL (14) creatinine 0.86 mg/dL 0.57-1 .00 normal Not Available [facility] ([facility]) [address] [facility], [place], [address], 05/08/2025 09:08:36 05/07/2005/08/2025 COMP. METAB OLIC PANEL (14) eGFR 79 mL/mi n/1.7 3 >59 normal Not Available [facility] ([facility]) [address] [facility], [place], [address], 05/08/2025 09:08:36 05/07/20 25 05/08/2025 COMP. METAB OLIC PANEL (14) BUN/creatini ne ratio 13 9-23 normal Not Available [facility] ([facility]) [address] [facility], [place], [address], 05/08/2025 09:08:36 05/07/20 25 05/08/2025 COMP. METAB OLIC PANEL (14) sodium 140 mmol/ L 134-14 4 normal Not Available [facility] ([facility]) [address] [facility], [place], [address], 05/08/2025 09:08:36 05/07/2005/08/2025 COMP. METAB OLIC PANEL (14) potassium 4.7 mmol/ L 3.5-5. 2 normal Not Available [facility] ([facility]) [address] [facility], [place], [address], 05/08/2025 09:08:36 05/07/2005/08/2025 COMP. METAB OLIC PANEL (14) chloride 104 mmol/ L 96-106 normal Not Available [facility] ([facility]) [address] [facility], [place], [address], 05/08/2025 09:08:36 05/07/20 25 05/08/2025 COMP. METAB OLIC PANEL (14) carbon dioxide, total 21 mmol/ L 20-29 normal Not Available [facility] ([facility]) [address] [facility], [place], [address], 05/08/2025 09:08:36 05/07/20 25 05/08/2025 COMP. METAB OLIC PANEL (14) calcium 9.7 mg/dL 8.7-10 .2 normal Not Available [facility] ([facility]) [address] [place], [address], 05/08/2025 09:08:36 05/07/2005/08/2025 COMP. METAB OLIC PANEL (14) protein, total 7.1 g/dL 6.0-8. 5 normal Not Available [facility] ([facility]) [address] [place], [address], 05/08/2025 09:08:36 05/07/2005/08/2025 COMP. METAB OLIC PANEL (14) albumin 5.0 g/dL 3.8-4. 9 above high normal Not Available [facility] ([facility]) [address] [place], [address], 05/08/2025 09:08:36 05/07/2005/08/2025 COMP. METAB OLIC PANEL (14) globulin, total 2.1 g/dL 1.5-4. 5 Not Available [facility] ([facility]) [address] [place], [address], 05/08/2025 09:08:36 05/07/2005/08/2025 COMP. METAB OLIC PANEL (14) bilirubin, total 0.5 mg/dL 0.0-1. 2 normal Not Available [facility] ([facility]) [address] [place], [address], 05/08/2025 09:08:36 05/07/2005/08/2025 COMP. METAB OLIC PANEL (14) alkaline phosphatase 84 IU/L 49-135 normal Not Available [facility] ([facility]) [address] [place], [address], 05/08/2025 09:08:36 05/07/20 25 05/08/2025 COMP. METAB OLIC PANEL (14) AST (SGOT) 27 IU/L 0-40 normal Not Available [facility] ([facility]) [address] [facility] [place], [address], 05/08/2025 09:08:36 05/07/20 25 05/08/2025 COMP. METAB OLIC PANEL (14) ALT (SGPT) 30 IU/L 0-32 normal Not Available [facility] ([facility]) [address] [facility] [place], [address], 05/08/2025 09:08:36 05/07/2005/08/2025 LIPID PANEL cholesterol, total 165 mg/dL 100-19 9 normal Not Available [facility] ([facility]) [address] [facility] [place], [address], 05/08/2025 09:08:36 05/07/20 25 05/08/2025 LIPID PANEL triglyceride s 77 mg/dL 0-149 normal Not Available [facility] ([facility]) [address] [facility] [place], [address], 05/08/2025 09:08:36 05/07/20 25 05/08/2025 LIPID PANEL HDL cholesterol 92 mg/dL >39 normal Not Available [facility] ([facility]) [address] [facility] [place], [address], 05/08/2025 09:08:36 05/07/2005/08/2025 LIPID PANEL VLDL cholesterol memo 14 mg/dL 5-40 Not Available [facility] ([facility]) [address] [facility] [place], [address], 05/08/2025 09:08:36 05/07/20 25 05/08/2025 LIPID PANEL LDL chol calc ([facility]) 59 mg/dL 0-99 Not Available [facility] ([facility]) [address] [place], [address], 05/08/2025 09:08:36 05/07/2005/08/2025 LIPID PANEL LDL calc comment: CAR JOCKEY Not Available [facility] ([facility]) [address] [facility], [place], [address], 05/08/2025 09:08:36 05/07/2005/08/2025 VITAM IN B12 AND FOLAT E vitamin B12 732 pg/mL 232-12 45 normal Not Available [facility] ([facility]) [address] [facility], [place], [address], 05/08/2025 09:08:37 05/07/2005/08/2025 VITAM IN B12 AND FOLAT E folate (folic acid), serum 12.0 NG/mL >3.0 normal A serum folat e kenji ntrat ion of less than 3.1 ng/mL is consi dered to repre sent clini memo defic iency . Not Available [facility] ([facility]) [address] [facility], [place], [address], 05/08/2025 09:08:37 05/07/2005/08/2025 HEMOG LOBIN A1C hemoglobin A1C 5.6 % 4.8-5. 6 normal Predi abete s: 5.7 - 6.4 Diabe sinan: >6.4 Glyce vivien contr ol for adult s with diabe sinan: <7.0 Not Available [facility] ([facility]) [address] [facility], [place], [address], 05/08/2025 09:08:38 05/07/2005/08/2025 VITAM IN D, 25-HY [...] Endoc rine Socie ty went on to furth er defin e vitam in D insuf ficie ncy as a level betwe en 21 and 29 ng/mL (2). 1. IOM (Inst itute of Medic ine). 2010. Dieta ry refer ence intak es for calci um and D. [place]: [facility] . 2. Robert ayala MF, Candelaria pino [place], Livan off-F errar i CARRANZA, et al. Evalu ation , treat ment, and preve ntion of vitam in D defic iency : an Endoc rine Socie ty clini memo pract ice guide line. JCEM. 2010; 96(7) :1911 -30. Not Available [facility] ([facility]) [address] [facility], [place], [address], 05/08/2025 09:08:38 06/11/20 25 06/11/2025 rapid influ dominique virus A + B and SARS CoV + SARS CoV 2 Ag panel , [place], upper respi rator y speci men SARS-CoV2 negati ve Not Available [address], [address], 06/11/2025 11:42:11 06/11/20 25 06/11/2025 rapid influ dominique virus A + B and SARS CoV + SARS CoV 2 Ag panel , [place], upper respi rator y speci men Flu A negati ve Not Available [address], [address], 06/11/2025 11:42:11 06/11/20 25 06/11/2025 rapid influ dominique virus A + B and SARS CoV + SARS CoV 2 Ag panel , [place], upper respi rator y speci men Flu B negati ve Not Available [address], [address], 06/11/2025 11:42:11 06/12/20 24 XR, chest , 2 view No observ ation record ed. [email or web address] [facility] - [address], [place], [address], 06/16/2024 10:46:28 08/18/19 25 08/11/2024 MAMMO , scree ml, digit al, bilat eral No observ ation record ed. [facility] Not Available 08/21 14:16:38 09/01/19 25 08/21/2024 MAMMO , scree ml, digit al, bilat eral No observ ation record ed. [address] [facility], [address], 09/01/2024 09:39:42 02/16/20 25 02/15/2025 XR, chest No observ ation record ed. [address], [place], [address], 05/29/2025 15:55:36 02/16/20 25 02/15/2025 CT, angio gram, chest , w/ contr ast No observ ation record ed. [address], [place], [address], 05/29/2025 15:55:53 02/17/20 25 02/15/2025 elect romero craven am No observ ation record ed. [address], [place], [address], 05/29/2025 15:56:01 Result Notes None recorded. Problems Name Problem SNOMED Code Status Onset Date Resolution Date Notes Provider Name and Address Organization Details Recorded Time Mixed hyperlipidemia 289142938 Active 2022 [facility] 10:27:23 Prediabetes 582160317 Active 2023 Michelle perkins [place] [employer] 4 10:44:01 Fever 902292167 Active 2023 Michelle perkins, [employer] 4 14:08:59 Fatigue 53699800 Active 2024 Michelle perkins, [employer] 5 11:39:35 Hyperlipidemia 34140692 Active 2024 Michelle perkins, [employer] 5 11:39:35 Hyperglycemia 27525527 Active 2024 Michelle perkins, [employer] 5 11:39:35 Acute cough Active 2024 Michelle perkins, [employer] 5 11:41:41 Problem Notes None recorded. Procedures Surgical History Date Name Laterality Status Provider Name and Address Organization Details Recorded Time 5 Most Recent Mammogram completed [employer]. 11/03/2024 11:38:24 4 Alveoplasty w/ extraction completed [employer]. 05/08/2024 10:48:50 4 Date of Last Pap Smear completed [employer]. 05/08/2024 10:30:13 4 tooth extraction, multiple completed [employer]. 11/13/2023 10:29:14 Gallbladder Surgery completed FAIZAN LORIN [employer] 08/21/2022 13:38:56 Imaging Results None recorded. Procedure [...] Details Last Updated DateTime 5 152.4 cm 28.1 kg/m2 85644.3 g 80 /min 98 % 125/75 mm[Hg] Sonia Chambers [employer] 5 10:29:38 Date Recorded Body height Body mass index (BMI) Body weight Heart rate Oxygen saturation Systolic And Diastolic Provider Name and Address Organization Details Last Updated DateTime 5 152.4 cm 32.7 kg/m2 60821.0 3 g 88 /min 97 % 133/85 mm[Hg] Michelle Daniels [employer] 5 09:41:34 Date Recorded Body height Body mass index (BMI) Body weight Heart rate Oxygen saturation Systolic And Diastolic Provider Name and Address Organization Details Last Updated DateTime 5 152.4 cm 33.9 kg/m2 12303.6 3 g 68 /min 98 % 133/78 mm[Hg] Michelle [employer] 5 10:46:44 Date Recorded Body height Body mass index (BMI) Body weight Body temperature Heart rate Oxygen saturation Systolic And Diastolic Provider Name and Address Organization Details Last Updated DateTime 5 152.4 cm 33.6 kg/m2 13643.2 9 g 98.6 [degF] 80 /min 97 % 137/85 mm[Hg] Michelle [employer] 5 11:37:29 Date Recorded Body height Body mass index (BMI) Body weight Body temperature Heart rate Oxygen saturation Systolic And Diastolic Provider Name and Address Organization Details Last Updated DateTime 4 152.4 cm 28.2 kg/m2 34675.1 g 98.6 [degF] 101 /min 94 % 131/89 mm[Hg] Michelle [employer] 4 14:08:24 Social History Question Answer Notes LastModified by Organizat ion Details LastModified Time Tobacco Smoking Status Former Smoker Sunshine perkins, [employer] 08/21/2022 13:32:27 Do You Have An Advance Directive? No [email or web address] Information not available 08/21/2022 Is Your Home Air Conditioned? Yes Information not available 08/21/2022 Do You Wear A Helmet When Biking? Yes [email or web address] Information not available 08/21/2022 Are You Blind Or Do You Have Difficulty Seeing? No Information not available 08/21/2022 What Is Your Level Of Caffeine Consumption? Moderate [email or web address] Information not available 08/21/2022 Are You A Caregiver? No Information not available 05/07/2025 In The 14 Days Before Symptom Onset, Have You Had Close Contact With A Laboratory-confi rmed COVID-19 While That Case Was Ill? No [email or web address] Information not available 08/21/2022 In The 14 Days Before Symptom Onset, Have You Had Close Contact With A Person Who Is Under Investigation For COVID-19 While That Person Was Ill? No [email or web address] Information not available 08/21/2022 Have You Been To An Area Known To Be High Risk For COVID-19? No [email or web address] Information not available 08/21/2022 Are You Deaf Or Do You Have Serious Difficulty Hearing? No Information not available 08/21/2022 What Type Of Diet Are You Following? REGULAR [email or web address] Information not available 08/21/2022 What Is The Highest Grade Or Level Of School You Have Completed Or The Highest Degree You Have Received? [id number] Information not available 05/07/2025 How Many Days Of Moderate To Strenuous Exercise, Like A Brisk Walk, Did You Do In The Last 7 Days? 2 [email or web address] Information not available 08/21/2022 Have There Been Any Changes To Your Family Or Social Situation? No [email or web address] Information not available 08/21/2022 When Did You Quit Smoking? 1-5yearssincelastc igarette [email or web address] Information not available 08/21/2022 Are There Any Guns Present In Your Home? Yes [email or web address] Information not available 08/21/2022 Which Of Your Hands Is Dominant? Right Information not available 08/21/2022 Do You Engage In Moderate/heavy Exercise (e.g. Brisk Walk, Jogging, Strength Training, Etc)? No Information not available 05/07/2025 What Is Your Home Situation? Other [email or web address] Information not available 08/21/2022 How Many Times In The Past Year Have You Used An Illegal Drug Or Used A Prescription Medication For Nonmedical Reasons? 0 Information not available 05/07/2025 Where Do You Live? [facility] Information not available 05/07/2025 Do You Have A Medical Power Of Director Of Kids? No Information not available 08/21/2022 What Was The Date Of Your Most Recent Tobacco Screening? 06/11/2025 Information not available 06/11/2025 What Is Your Current Pack Years? 30ormorepackyears [email or web address] Information no t available 08/21/2022 Do You Have Any Pets? Yes Information not available 08/21/2022 Do You Use Protection During Sex? No [email or web address] Information not available 08/21/2022 What Is Your Relationship Status? Information not available 08/21/2022 Have You Repeated Any Grades? No [email or web address] Information not available 08/21/2022 Do You Wear A Seatbelt When Driving Or As A Passenger? Yes Information not available 05/07/2025 Do You Use Your Seat Belt Or Car Seat Routinely? Yes Information not available 08/21/2022 Are You Sexually Active? Yes [email or web address] Information not available 08/21/2022 Do You Have Any Siblings? Yes [email or web address] Information not available 08/21/2022 Do You Have Smoke And Carbon Monoxide Detectors In Your Home? Yes Information not available 08/21/2022 At What Age Did You Start Smoking Tobacco? 23 [email or web address] Information not available 08/21/2022 Are You Passively [...] Many Years Have You Smoked Tobacco? 15 Information not available 08/21/2022 Have You Recently Traveled Abroad? No [email or web address] Information not available 08/21/2022 Do You Have Difficulty Walking Or Climbing Stairs? No Information not available 08/21/2022 Are You Currently In School? No [email or web address] Information not available 08/21/2022 What Contraceptive Method [...] 08/21/2022 Do you have transportation difficulties? No Information not available 08/21/2022 Are you able to care for yourself independently? Yes Information not available 08/21/2022 Do you have difficulty dressing, bathing, grooming, or toileting? Yes [email or web address] Information not available 08/21/2022 Do you or have you ever used e-cigarettes or vape? Never used electronic cigarettes Information not available 05/07/2025 What is your exercise level? Occasional [email or web address] Information not available 08/21/2022 Do you use any illicit or recreational drugs? No [email or web address] Information not available 08/21/2022 Do you feel [...] you have difficulty doing errands alone? Yes [email or web address] Information not available 08/21/2022 Mental Status Question Answer Note LastModified by Organizat ion Details LastModified Time Do you feel stressed (tense, restless, nervous, or anxious, or unable to sleep at night)? [id number] [email or web address] Information not available 08/21/2022 Do you have difficulty concentrating, remembering or making decisions? Yes [email or web address] Information no t available 08/21/2022 Are you or have you been involved with bullying? No [email or web address] Information not available 08/21/2022 Family History Relationship Description Onset Age of this Age Resolved Age Notes LastModified by Organization Details LastModified Time Father Diabetes mellitus [email or web address] Not available 08/21 13:38:54 Father Hypercholest erolemia [email or web address] Not available 08/21 13:38:54 Father Hypertensive disorder [email or web address] Not available 08/21 13:38:54 Father Heart disease [email or web address] Not available 08/21 13:38:54 Mother Diabetes mellitus [email or web address] Not available 08/21 13:38:54 Mother Hypercholest erolemia [email or web address] Not available 08/21 13:38:54 Mother Arthritis [email or web address] Not availa ble 08/21/2022 13:38:54 Medical History [...] Time zoster recombinant 11/13/2023 completed Michelle perkins, [employer] 11/13/2023 11:53:42 zoster recombinant 01/14/2024 completed Eulalia Sparks APRN [address] [place] [address], [address], [employer] 01/14/2024 16:28:26 COVID-19, mRNA, LNP-S, PF, 100 mcg/0.5mL dose or 50 mcg/0.25mL dose 09/02/2020 completed FAIZAN perkins, [employer] 08/21/2022 13:38:05 COVID-19, mRNA, LNP-S, PF, 100 mcg/0.5mL dose or 50 mcg/0.25mL dose 09/30/2020 completed FAIZAN perkins [employer] 08/21/2022 13:38:05 COVID-19, mRNA, LNP-S, PF, 100 mcg/0.5mL dose or 50 mcg/0.25mL dose 11/08/2021 completed FAIZAN LORIN null, [employer] 08/21/2022 13:38:05 COVID-19, mRNA, LNP-S, PF, 100 mcg/0.5mL dose or 50 mcg/0.25mL dose 05/26/2021 completed FAIZAN LORIN null, [employer] 08/21/2022 13:38:05 COVID-19, mRNA, LNP-S, bivalent, PF, 50 mcg/0.5 mL or 25mcg/0.25 mL dose 07/26/2022 completed [employer], [employer] 08/21/2022 13:38:05 Hep A, adult 05/09/2018 completed [employer], [employer] 08/21/2022 13:38:05 Influenza, split virus, quadrivalent, PF 04/15/2020 completed [employer], [employer] 08/21/2022 13:38:05 Influenza, split virus, quadrivalent, PF 04/28/2022 completed [employer], [employer] 08/21/2022 13:38:05 Influenza, split virus, quadrivalent, PF 05/09/2018 completed FAIZAN LORIN null, [employer] 08/21/2022 13:38:05 Influenza, split virus, quadrivalent, PF 05/21/2019 completed FAIZAN LORIN null, [employer] 08/21/2022 13:38:05 Influenza, split virus, quadrivalent, PF 05/25/2016 completed [employer] null, [employer] 08/21/2022 13:38:05 Influenza, split virus, trivalent, PF 05/07/2025 completed Eulalia Sparks APRN [address] [place] [address], [address], [employer] 05/07/2025 11:13:15 Past Encounters Encounter ID Performer Location Encounter Start Date Encounter Closed Date Diagnosis/Indication Diagnosis SNOMED-CT Code Diagnosis ICD10 Code Diagnosis IMO Codes Diagnosis Note [id number] Eulalia Sparks [place] [address] 0 08/21/2022 13:23:54 08/21/2022 14:09:58 Adult health examination 230655966 Z00.00 Chronic fa tigue syndrome 69497008 R53.82 Dysuria 24014974 R30.0 Body mass index 25-29 - overweight 919586136 Z68.28 Acute urin ronda tract infection 944861771 N39.0 [id number] Eulalia Sparks [place] [address] 0 11/20/2022 14:47:42 11/20/2022 15:41:56 Hyperlipidemia 58294015 E78.5 Fatigue 04763801 R53.83 Body mass index 25-29 - overweight 039673327 Z68.28 [id number] Eulalia Sparks [place] [address] 0 05/15/2023 08:22:11 05/15/2023 08:48:59 Hyperlipidemia 88145759 E78.5 Acute sinusitis 72085237 J01.90 Body mass index 25-29 - overweight 723320568 Z68.28 [id number] Eulalia Sparks [place] [address] 0 11/13/2023 10:19:50 11/13/2023 11:07:56 Screening for malignant neoplasm of colon 440059632 Z12.11 Active or passive immunization 038925523 Z23 Shingles VIS given Body mass index 25-29 - overweight 312622187 Z68.28 Hyperlipidemia 18911006 E78.5 Fatigue 15191874 R53.83 Vitamin D deficiency 347 67755 E55.9 Hyperglycemia 54619728 R 73.9 [id number] Eulalia Sparks [place] [address] 0 01/14/2024 12:52:31 01/14/2024 13:53:08 Active or passive immunization 013690519 Z23 Shingles VIS given Gynecologi c examination 64737063 Z01.419 Body mass index 25-29 - overweight 401649714 Z68.28 [id number] Eulalia Sparks [place] [address] 0 05/08/2024 10:26:10 05/08/2024 11:25:14 Prediabetes 329870927 R73.03 Hyperlipidemia 63027473 E78.5 Mild inter mittent asthma 609558770 J45.20 Body mass index 25-29 - overweight 416265825 Z68.28 [id number] Eulalia Sparks [place] [address] 0 06/12/2024 13:38:39 06/12/2024 14:51:41 Fever 461018686 R50.9 Cough 37124827 R05.9 Lower resp iratory tract infection 35302307 J22 Body mass index 25-29 - overweight 398329250 Z68.28 [id number] Eulalia Sparks [place] [address] 0 11/04/2024 10:22:11 11/04/2024 10:48:47 Hyperlipidemia 63937397 E78.5 Fatigue 06740728 R53.83 Hyperglycemia 00570389 R 73.9 Vitamin D deficiency 347 39853 E55.9 Vitamin B deficiency 479 70134 E53.9 Mild inter mittent asthma 244686845 J45.20 Body mass index 25-29 - overweight 203885579 Z68.28 [id number] Eulalia Sparks [place] [address] 0 02/24/2025 09:25:19 02/24/2025 09:56:42 Atypical pneumonia 709072110 J18.9 876367 Body mass index 30+ - obesity 749538278 Z68.32 104305 [id number] Eulalia Sparks [place] [address] 0 05/07/2025 10:20:51 05/07/2025 11:06:41 Requires influenza virus vaccination 969842900 Z23 6519387 Fatigue 36585265 R53.83 5360230 Mixed hyperlipidemia 267 058678 E78.2 29184 Hyperglycemia 24493714 R 73.9 60016 Vitamin D deficiency 347 75876 E55.9 29554 Cobalamin deficiency 190 468072 E53.8 55334 Mild inter mittent asthma 018298622 J45.20 Allergic rhinitis 471911 04 J30.9 Hyperlipidemia 00317767 E78.5 Body mass index 30+ - obesity 432776317 Z68.33 [id number] [id number] Eulalia [place] [id number] 0 06/11/2025 11:20:47 06/11/2025 13:01:51 Acute cough 4948258798 86299668 R05.2 2458693024 Acute bronchitis 8892618 2 J20.9 00963572 Candidiasis of mouth 797 12162 B37.0 057229 Body mass index 30+ - obesity 331196734 Z68.33 151570 Health Concerns Section Related Observation LastModified by Organization Detai ls LastModified Time None Recorded Concern Status LastModified by Organization Details LastModified Time None Recorded Advance Directives Directive N: Payers Insurance Date Sequence Insurance Name Policy Number Policy Briones Covered Member ID Briones Member ID Guarantor Name 06/11/2025 1 [place] [id number] 9 Johannbryce Quinn Mark [id number] Val Mark 08/21/2022 1 *SELF PAY* [facility] Notes Date Note Type Note Provider Name and Address Organization Details Recorded Time 06/12/2024 text/html pt here today with c/o cough, congestion and fever for the past several days. pt states that she had covid around a month ago. states that her got her a vaporizer and she used it last night and it helped a little. on exam, left ear with wax impaction, throat WNL, lungs decreased with I/E wheeze and rhonchi. bronchitis vs PNA. i will order cxray, abx and steroids. pt states that she is an ex smoker and has had PNA before. educated pt on new meds. pt voiced understanding. increase fluids. return for worsening symptoms. Eulalia Sparks, MEDICAL SCHEDULER [address] [facility], [place], [address], [employer], [employer]. 06/12/2024 15:14:13 11/04/2024 text/html pt here today for medication refills. pt states shes doing well on current medication regime and has no new complaints today. 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 Eulalia Sparks, MEDICAL SCHEDULER [address] [facility], [place], [address], [employer], [employer]. 11/04/2024 11:13:31 02/24/2025 text/html pt here today for a hospital f/u. pt states that she was getting sick and then on 02/15 she couldnt breathe and had to go to ER. states that she was there for 2 days and docs had talked about intubating her but didnt. states that she was d/c with abx and finished it but states that she does still get winded and and feels like she could benefit from another abx. states that she is using inhaler and has f/u with pulm next month. on exam, pt seems slight soa, however is still smoking, lungs decreased. i will order abx and steroid for a few days. educated pt on new meds. rest, increase fluid intake. return for worsening symptoms. Eulalia Sparks, MEDICAL SCHEDULER [address] [facility], [place], [address], [employer] 02/24/2025 10:38:18 05/07/2025 text/html pt here today for medication [...] class. pt will need to talk with pulm about that. i can refill the inhaler for her until she sees them in jun. Eulalia Sparks APRN [address] [place], [address], [employer] 05/07/2025 12:32:13 06/11/2025 text/html pt here today with c/o [...] pt voiced understanding. Eulalia Sparks APRN [address] [place], [address], [employer] 06/11/2025 12:41:31 OBGyn Episode No OBEpisode recorded.
--- OUTSIDE RECORDS SUMMARY | 2025-06-24 07:44 | XMS_ITS | Clinical Summary ---
Author Organization [facility] Address [address] [place] [address] Phone Care Team Providers Care Investigative Agent Name Role Phone Unavailable Primary Care Provider [...] 11/25/2018, 10/2017, 11/08/2016 COVID-19 Vaccine ( season) 2025 07/26/2022, 11/08/2021, 05/26/2021, Additional history exists Influenza [...] EST Impressions 08/21/2024 4:23 PM EST Negative ([id number]) ASSESSMENT TEXT: No mammographic evidence of malignancy. RECOMMENDATION: Routine Screening Mammogram in 1 Year Bilateral COMMENTS: Return for evaluation with any concerning changes. The findings and recommendations were discussed with the patient following the examination. Narrative 08/21/2024 4:23 PM EST EXAM: MM MAMMO DIGITAL ROBERTO DIAGN LEFT EXAM DATE: 08/21/2024 INDICATION: R92.8-Other abnormal and inconclusive findings on diagnostic imaging of [id number] COMPARISON STUDIES: No Qualifying Comparisons Found TISSUE DENSITY: The breasts are heterogeneously dense, which may obscure small masses. FINDINGS: The questioned area of distortion effaces with supplemental views compatible with summation artifact of normal breast tissue. No suspicious mammographic findings. Procedure Note Indra Zamuido MD - 08/21/2024 EXAM: MM MAMMO DIGITAL ROBERTO DIAGN LEFT EXAM DATE: 08/21/2024 INDICATION: R92.8-Other abnormal and inconclusive findings on diagnosticimaging of [id number] COMPARISON STUDIES: No Qualifying Comparisons Found TISSUE DENSITY: The breasts are heterogeneously dense, which may obscuresmall masses. FINDINGS: The questioned area of distortion effaces with supplementalviews compatible with summation artifact of normal breast tissue. Nosuspicious mammographic findings. IMPRESSION: Negative ([id number]) ASSESSMENT TEXT: No mammographic evidence of malignancy. RECOMMENDATION: Routine Screening Mammogram in 1 Year Bilateral COMMENTS: Return for evaluation with any concerning changes. The findingsand recommendations were discussed with the patient following theexamination. Toyin Holguin APRN IM MAMMOGRAPHY ORDERABLES Fin al Result from Last 3 Months or Most Recently Relevant to Health Maintenance Insurance O
[2025-06-24 08:40] VITALS: PULSE 73
[2025-06-24] MEDS: ALBUTEROL 0.083% 2.5 MG/3 ML NEB IH (08:40)
--- NOTE | 2025-06-24 10:00 | CT_ITS ---
FINAL REPORT TECHNIQUE: Axial imaging of the chest was obtained without contrast. Reformatted images were also obtained and reviewed.This study was performed with techniques to keep radiation doses as low as reasonably achievable, (ALARA). Individualized dose reduction technique using automated exposure control or adjustment of mA and/or kV according to the patient's size were employed. CLINICAL HISTORY: nodule COMPARISON: 02/15/2025 FINDINGS: There is no axillary adenopathy. There is no hilar or mediastinal mass or adenopathy. Heart size is normal. There is no pericardial or pleural effusion. Limited images of the upper abdomen are unremarkable. There are coarse linear densities in the left lower lobe consistent with atelectasis or scarring. There is been interval resolution of previously seen ground glass opacities. Lungs are otherwise clear. No suspicious infiltrate or nodule is identified on lung window images. IMPRESSION: No suspicious pulmonary nodule. Interval resolution of presumed pneumonia. Reviewed, Interpreted and Dictated by Patricia Huggins MD Transcribed by Lily Powell Authenticated and [facility]
== END 2025-06-24 23:59 | disposition home or self-care (01) ==
LOC: RT 07:43
PROVIDERS: PCP Nurse Practitioner; Visit Provider Internal Medicine Pulmonary Disease
DX: R91.1 Solitary pulmonary nodule (principal); R06.09 Other forms of dyspnea
CPT/HCPCS: 71250; 94060; 94618; 94640; 94726; 94729